=== PATIENT | male | born 1950 | race Caucasian/White ===

== ENCOUNTER → 2017-09-02 | Day surgery (SDC) | payer BC ==
[~2017-09-02] MED LIST: LIDOCAINE 1% PF 2 ML VIAL. ID; LIDOCAINE 2% PF Vial for OR 5 ML VIAL.; MIDAZOLAM HCL/PF 2 MG/2 ML VIAL. IV; PROPOFOL 20 ML IV; fentaNYL PF VIAL 100 MCG/2 ML VIAL IV
[2017-09-02] MEDS: IV RINGERS,LACTATED 1000ML 1,000 ML IV (09:58)
== END | disposition home or self-care (01) ==
LOC: SURG 09:27
DX: K21.0 Gastro-esophageal reflux disease with esophagitis (principal); E78.00 Pure hypercholesterolemia, unspecified; I10 Essential (primary) hypertension; M19.90 Unspecified osteoarthritis, unspecified site; E66.9 Obesity, unspecified; Z72.89 Other problems related to lifestyle; Z88.1 Allergy status to other antibiotic agents; Z88.6 Allergy status to analgesic agent; Z90.49 Acquired absence of other specified parts of digestive tract; Z98.890 Other specified postprocedural states; Z86.19 Personal history of other infectious and parasitic diseases; Z80.0 Family history of malignant neoplasm of digestive organs
CPT/HCPCS: 43239; 88305; J2001; J2704

== ENCOUNTER → 2017-09-14 | Outpatient (CLI) | payer BC, MEDICARE | END | disposition home or self-care (01) | LOC: US 07:26 | DX: K80.50 Calculus of bile duct without cholangitis or cholecystitis without obstruction (principal); N28.1 Cyst of kidney, acquired | CPT/HCPCS: 76705 ==

== ENCOUNTER → 2017-10-20 | Outpatient (CLI) | payer BC, MEDICARE ==
[2017-09-02 11:16] VITALS: BP 148/102
[~2017-10-20] MED LIST changes: +AMLO5TAB2 PO; +ASPI-482 PO; +DICL1TAB2 PO; +DRON400T PO; -LIDOCAINE 1% PF 2 ML VIAL. ID; -LIDOCAINE 2% PF Vial for OR 5 ML VIAL.; +LISI-338 PO; -MIDAZOLAM HCL/PF 2 MG/2 ML VIAL. IV; -PROPOFOL 20 ML IV; +TAMS0.4C2 PO; -fentaNYL PF VIAL 100 MCG/2 ML VIAL IV
--- NOTE | 2017-10-20 16:13 | KCIC ---
EXAM: Renal sonogram. HISTORY: Renal insufficiency. TECHNIQUE: Sonographic imaging of the kidneys and bladder was performed. COMPARISON: None. FINDINGS: The right kidney measures 12.5 cm [id number]. The left kidney measures 11.6 cm [id number]. There is no hydronephrosis. There are cysts within the right kidney measuring 7.5 cm within the upper pole and 3.6 cm within the lower pole. There is a 2.0 cm complex cyst with internal echoes within the mid zone of the left kidney. The bladder is empty. The proximal inferior vena cava and aorta are obscured due to bowel gas. The mid abdominal aorta appears ectatic, measuring 2.8 cm. IMPRESSION: 1. Bilateral renal cysts, the largest of which measures 7.5 cm on the right. The cyst on the left measures 2.0 cm and is slightly complex due to internal echoes. 2. Suspected abdominal aortic ectasia measuring 2.8 cm. Electronically signed by: Viry Vazquez MD (10/20/2017 4:09 PM) [facility]
== END | disposition home or self-care (01) ==
LOC: KCIC US 14:48
PROVIDERS: ATTEND Internal Medicine Nephrology
DX: I12.9 Hypertensive chronic kidney disease with stage 1 through stage 4 chronic kidney disease, or unspecified chronic kidney disease (principal); N18.3 Chronic kidney disease, stage 3 (moderate); N28.1 Cyst of kidney, acquired; E78.00 Pure hypercholesterolemia, unspecified; K21.0 Gastro-esophageal reflux disease with esophagitis; Z86.19 Personal history of other infectious and parasitic diseases; Z90.49 Acquired absence of other specified parts of digestive tract; Z88.1 Allergy status to other antibiotic agents; Z88.6 Allergy status to analgesic agent; Z80.0 Family history of malignant neoplasm of digestive organs
CPT/HCPCS: 76770

== ENCOUNTER → 2017-12-01 | Outpatient (CLI) | payer BC ==
[2017-09-02 11:16] VITALS: BP 148/102
[~2017-12-01] MED LIST changes: -AMLO5TAB2 PO; +AMLO5TAB7 PO; +IOHEXOL 240 MG/ML 50ML VIAL. PO ONE; +IOHEXOL 300 MG/ML 100ML VIAL. IV ONE
--- NOTE | 2017-12-01 16:26 | KCIC ---
CT of the abdomen with and without contrast 12/01/2017 INDICATION: Renal cysts, indeterminate COMPARISON STUDY: Renal ultrasound October 20, 2017 TECHNIQUE: Multidetector CT imaging of the abdomen and pelvis is obtained before and after the administration of IV contrast FINDINGS : Prior cholecystectomy noted. Liver is unremarkable. Adrenal glands are unremarkable. Spleen is unremarkable. Pancreas is unremarkable. Visualized bowel demonstrates no obstruction. Small nonspecific lymph nodes are noted in the epigastrium. These are not pathologically enlarged by size criterion. 2 larger right-sided renal cysts are noted, which are simple in appearance. Larger is more superior measuring 6.9 cm in diameter. Smaller is more inferior measuring 4.2 cm in diameter. The superior pole the right kidney is a small nonspecific lesion measuring 0.5 cm in diameter, too small to adequately characterize. Statistically this most likely represents a small cyst. On the left to parapelvic cysts are present measuring 2 cm each.In the inferior lateral left kidney is a small hypodense lesion measuring approximately 1.6 cm in maximal diameter. The borders of this lesion are somewhat poorly delineated. 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 There is no nephrolithiasis or obstructive uropathy identified. Aortic calcification is seen. No acute osseous changes are identified. Degenerative changes of the visualized thoracic spine are noted. IMPRESSION: 1. Multiple bilateral renal cysts as described above in detail 2. 1.6 cm somewhat poorly defined hypodense lesion in the inferior lateral left kidney. The attenuation characteristics suggest a fat-containing lesion, most commonly angiomyolipoma. Given the indistinct appearance however a six-month follow-up exam with contrast is recommended to ensure stability. CT DOSING PQRS STATEMENT: One or more of the following individualized dose reduction techniques were utilized for this examination: 1. Automated exposure control 2. Adjustment of the mA and/or kV according to patient size 3. Use of iterative reconstruction technique Electronically signed by: Nicolas Rahman MD (12/01/2017 4:22 PM) [facility]
== END | disposition home or self-care (01) ==
LOC: KCIC CT 12:56
PROVIDERS: ATTEND Urology
DX: N28.1 Cyst of kidney, acquired (principal); I70.0 Atherosclerosis of aorta; N28.89 Other specified disorders of kidney and ureter; I12.9 Hypertensive chronic kidney disease with stage 1 through stage 4 chronic kidney disease, or unspecified chronic kidney disease; N18.3 Chronic kidney disease, stage 3 (moderate); Z86.19 Personal history of other infectious and parasitic diseases; Z90.49 Acquired absence of other specified parts of digestive tract
CPT/HCPCS: 74170; 82565; Q9966; Q9967

== ENCOUNTER 2018-07-26 23:03 | Inpatient (IN) | payer BC, MEDICARE ==
[~2018-07-26] VITALS: Ht 177.8 cm; Wt 102.1 kg
[~2018-07-26 23:03] MED LIST changes: +AMLO1CAP8 PO; +AMLO5TAB10 PO; -AMLO5TAB7 PO; +FAMO20TA5 PO; -IOHEXOL 240 MG/ML 50ML VIAL. PO ONE; -IOHEXOL 300 MG/ML 100ML VIAL. IV ONE; +LOSA-73 PO
[2018-07-26] MEDS ORDERED: PANTOPRAZOLE IV PUSH 40 MG VIAL. IVP ONE (23:30)
[2018-07-26] MEDS ORDERED: IV NORMAL SALINE 500ML BAG 500 ML IV ONE (23:30)
[2018-07-26 23:48] LABS: BASO # 0.1 x10^3/uL (0.0-0.2); BASO % 1 % (0-3); EOS # 0.1 x10^3/uL (0.0-0.7); EOS % 1 % (0-3); HEMATOCRIT 38.5 % (39.0-53.0); HEMOGLOBIN 12.6 g/dL (13.0-17.5); LYMPH # 1.3 x10^3/uL (1.0-4.8); LYMPH % 9 % (24-48); MEAN CORPUSCULAR HEMOGLOBIN 29 pg (25-35); MEAN CORPUSCULAR HGB CONC 33 g/dL (31-37); MEAN CORPUSCULAR VOLUME 88 fL (79-100); MONO # 1.4 x10^3/uL (0.0-1.1); MONO % 9 % (0-9); NEUT # 13.1 x10^3uL (1.8-7.7); NEUT % 82 % (31-73); PLATELET COUNT 386 x10^3/uL (140-400); RED BLOOD COUNT 4.37 x10^6/uL (4.30-5.70); RED CELL DISTRIBUTION WIDTH 14.7 % (11.5-14.5); WHITE BLOOD COUNT 15.9 x10^3/uL (4.0-11.0)
[2018-07-27] VITALS (12 sets, daily range): BP systolic 135–193; BP diastolic 93–109
[2018-07-27] LABS: PROTHROMBIN TIME PATIENT 14.2 SEC (11.7-14.0)
--- NOTE | 2018-07-27 00:22 | RAD ---
PQRS Compliance statement: One or more of the following individualized dose reduction techniques were utilized for this examination: 1. Automated exposure control. 2. Adjustment of the mA and/or kV according to patient size. 3. Use of iterative reconstruction technique. Indication:Lower GI bleed TECHNIQUE: CT abdomen and pelvis without IV contrast with multiplanar reformats. COMPARISON: None FINDINGS: Limited evaluation of solid abdominal and pelvic organs due to lack of IV contrast. Heart is normal in size. No pericardial or pleural effusion. Clear lung bases. Noncontrast appearance of the liver, spleen, pancreas, adrenals within normal limits. Status post cholecystectomy. Simple cyst in the right kidney measuring 6.7 x 5.1 cm. No nephrolithiasis or hydronephrosis. Laceration of abdominal soft tissues slightly limited due to streak artifact from retained oral contrast in the colon. No free pelvic fluid or ascites. Small bilateral fat-containing inguinal hernia. The prostate and seminal vesicles show no large mass. No bowel obstruction. Urinary bladder demonstrate no radiopaque stones. No pneumoperitoneum. Tortuous abdominal aorta with mild ectasia measuring 3 cm. Sigmoid diverticulosis. Mild levoscoliosis of the lumbar spine. No suspicious bony lesion. Multilevel degenerative disc disease in the lumbar spine. IMPRESSION: Limited evaluation of solid abdominal and pelvic organs due to lack of IV contrast. 1. No bowel obstruction. Sigmoid diverticulosis without diverticulitis. 2. No nephrolithiasis or hydronephrosis. 3. Mild ectasia of the infrarenal abdominal aorta. Electronically signed by: Go Whiting DO (07/27/2018 12:20 AM) [facility]
[2018-07-27 00:34] LABS: CALCIUM 8.4 mg/dL (8.5-10.1); CREATININE 1.9 mg/dL (0.7-1.3); GFR 35.5; POTASSIUM 3.9 mmol/L (3.5-5.1)
[2018-07-27 00:39] LABS: ALBUMIN 2.6 g/dL (3.4-5.0); ALBUMIN/GLOBULIN RATIO 0.8 (1.0-1.7); TOTAL BILIRUBIN 0.3 mg/dL (0.2-1.0); TOTAL PROTEIN 5.8 g/dL (6.4-8.2)
--- NOTE | 2018-07-27 00:50 | PHYS DOC ---
Past Medical History Past Medical History: COPD, CVA, Diverticulosis, GI Bleed Past Surgical History: Cholecystectomy Additional Past Surgical Histo: Carpal tunnel R side, hemorroidectomy Alcohol Use: Occasionally Drug Use: Marijuana Adult General Chief Complaint Chief Complaint: GI PROBLEM HPI HPI Patient is a 68 year old male patient resident of [facility] on Heparin drip because of left lower extremity infection brought in by EMS because of GI bleeding. Patient had 1 episode of rectal bleeding tonight without abdominal pain, nausea and vomiting, urinary symptom, easy bruising. She states she had history of diverticulitis and previous GI bleed. Review of Systems Review of Systems Constitutional: Denies fever or chills [] Eyes: Denies change in visual acuity, redness, or eye pain [] HENT: Denies nasal congestion or sore throat [] Respiratory: Denies cough or shortness of breath [] Cardiovascular: No additional information not addressed in HPI [] GI: Denies abdominal pain, nausea, vomiting, diarrhea , reports bloody stool[] : Denies dysuria or hematuria [] Musculoskeletal: Denies back pain or joint pain [] Integument: Denies rash or skin lesions [] Neurologic: Denies headache, focal weakness or sensory changes [] Endocrine: Denies polyuria or polydipsia [] All other systems were reviewed and found to be within normal limits, except as documented in this note. Current Medications Current Medications Current Medications Medications (Trade) Dose Ordered Sig/Von Start Time Stop Time Status Last Admin Dose Admin Pantoprazole Sodium (PROTONIX VIAL for IV PUSH) 40 mg 1X ONCE 07/26/18 23:30 07/26/18 23:32 DC 07/27/18 00:06 40 MG Sodium Chloride 500 ml @ 500 mls/hr 1X ONCE 07/26/18 23:30 07/27/18 00:29 DC 07/26/18 23:30 500 MLS/HR Allergies Allergies Physical Exam Physical Exam Constitutional: Well developed, well nourished, mild distress, non-toxic appearance. [] HENT: Normocephalic, atraumatic, oropharynx dry. Eyes: PERRLA, EOMI, conjunctiva normal, no discharge. [] Neck: Normal range of motion, no tenderness, supple, no stridor. [] Cardiovascular:Heart rate regular rhythm, no murmur [] Lungs & Thorax: Bilateral breath sounds clear to auscultation [] Abdomen: Bowel sounds normal, soft, no tenderness, no masses, no pulsatile masses. [] Skin: Warm, dry, no erythema, no rash. [] Back: No tenderness, no CVA tenderness. [] Extremities: No tenderness, no cyanosis, no clubbing, left lower extremity with dressing Neurologic: Alert and oriented X 3, normal motor function, normal sensory fu nction, no focal deficits noted. [] Current Patient Data Vital Signs Vital Signs Date Time Temp Pulse Resp B/P (MAP) Pulse Ox O2 Delivery O2 Flow Rate FiO2 07/27/18 00:02 61 25 137/89 (105) 93 Nasal Cannula 3.0 07/26/18 23:10 97.7 97.7 Lab Values Laboratory Tests Test 07/26/18 23:37 White Blood Count 15.9 x10^3/uL (4.0-11.0) H Red Blood Count 4.37 x10^6/uL (4.30-5.70) Hemoglobin 12.6 g/dL (13.0-17.5) L Hematocrit 38.5 % (39.0-53.0) L Mean Corpuscular Volume 88 fL (79-100) Mean Corpuscular Hemoglobin 29 pg (25-35) Mean Corpuscular Hemoglobin Concent 33 g/dL (31-37) Red Cell Distribution Width 14.7 % (11.5-14.5) H Platelet Count 386 x10^3/uL (140-400) Neutrophils (%) (Auto) 82 % (31-73) H Lymphocytes (%) (Auto) 9 % (24-48) L Monocytes (%) (Auto) 9 % (0-9) Eosinophils (%) (Auto) 1 % (0-3) Basophils (%) (Auto) 1 % (0-3) Neutrophils # (Auto) 13.1 x10^3uL (1.8-7.7) H Lymphocytes # (Auto) 1.3 x10^3/uL (1.0-4.8) Monocytes # (Auto) 1.4 x10^3/uL (0.0-1.1) H Eosinophils # (Auto) 0.1 x10^3/uL (0.0-0.7) Basophils # (Auto) 0.1 x10^3/uL (0.0-0.2) Prothrombin Time 14.2 SEC (11.7-14.0) H Prothrombin Time INR 1.1 (0.8-1.1) PTT 28 SEC (24-38) Lactic Acid Level 1.5 mmol/L (0.4-2.0) Laboratory Tests 07/26/18 23:37 EKG EKG [] Radiology/Procedures Radiology/Procedures [facility] [address] [place] [address] IMAGING REPORT Signed PATIENT: SHAQUILLE DELUCA ACCOUNT: [id number] : 1950 LOCATION: ER AGE: 68 SEX: M EXAM STATUS: REG ER ORD. PHYSICIAN: JENNIFER LOUISE MD REASON: lower GI bleeding PROCEDURE: CT ABDOMEN PELVIS WO CONTRAST PQRS Compliance statement: One or more of the following individualized dose reduction techniques were utilized for this examination: 1. Automated exposure control. 2. Adjustment of the mA and/or kV according to patient size. 3. Use of iterative reconstruction technique. Indication:Lower GI bleed TECHNIQUE: CT abdomen and pelvis without IV contrast with multiplanar reformats. COMPARISON: None FINDINGS: Limited evaluation of solid abdominal and pelvic organs due to lack of IV contrast. Heart is normal in size. No pericardial or pleural effusion. Clear lung bases. Noncontrast appearance of the liver, spleen, pancreas, adrenals within normal limits. Status post cholecystectomy. Simple cyst in the right kidney measuring 6.7 x 5.1 cm. No nephrolithiasis or hydronephrosis. Laceration of abdominal soft tissues slightly limited due to streak artifact from retained oral contrast in the colon. No free pelvic fluid or ascites. Small bilateral fat-containing inguinal hernia. The prostate and seminal vesicles show no large mass. No bowel obstruction. Urinary bladder demonstrate no radiopaque stones. No pneumoperitoneum. Tortuous abdominal aorta with mild ectasia measuring 3 cm. Sigmoid diverticulosis. Mild levoscoliosis of the lumbar spine. No suspicious bony lesion. Multilevel degenerative disc disease in the lumbar spine. IMPRESSION: Limited evaluation of solid abdominal and pelvic organs due to lack of IV contrast. 1. No bowel obstruction. Sigmoid diverticulosis without diverticulitis. 2. No nephrolithiasis or hydronephrosis. 3. Mild ectasia of the infrarenal abdominal aorta. Electronically signed by: Go Whiting DO (07/27/2018 12:20 AM) [facility] DICTATED and SIGNED BY: GO WHITING DO DATE: 07/27/18 0020 Course & Med Decision Making Course & Med Decision Making Pertinent Labs and Imaging studies reviewed. (See chart for details) Evaluation of patient in ER showed 68-year-old male patient on heparin drip and one episode of rectal bleeding. Patient has a stable blood of 12.6 that was drop ped from 15. Patient also had increasing of BUN/creatinine. Patient had another episode of large amount of bloody stool while he was in ER without drop of blood pressure. IV fluid and Protonix bolus and drip was given and patient was admitted to ICU with instruction of repeat CBC every 4 hours and consulting GI. [place] Disclaimer Dragon Disclaimer This electronic medical record was generated, in whole or in part, using a voice recognition dictation system. Departure Departure Impression: Primary Impression: GI bleed Additional Impressions: Acute on chronic renal failure Anticoagulant-induced bleeding Anemia Hypoalbuminemia Disposition: ADMITTED INPATIENT (at 0007) Admitting Physician: WILL (Dr. Duncan accepted admission) Condition: GUARDED Referrals: MAKENZIE ALEXANDER (PCP) Problem Qualifiers Primary Impression: GI bleed GI bleed type/associated pathology: unspecified gastrointestinal hemorrhage type Qualified Codes: K92.2 - Gastrointestinal hemorrhage, unspecified Additional Impressions: Acute on chronic renal failure Acute renal failure type: unspecified Chronic kidney disease stage: unspec ified stage Qualified Codes: N17.9 - Acute kidney failure, unspecified; N18.9 - Chronic kidney disease, unspecified Anemia Anemia type: unspecified type Qualified Codes: D64.9 - Anemia, unspecified JENNIFER LOUISE MD July 27, 2018 00:50
[2018-07-27] MEDS: IV NORMAL SALINE 1000ML BAG 1,000 ML IV SCH ×2 (01:00→17:00)
[2018-07-27] MEDS ORDERED: IV NORMAL SALINE 1000ML BAG 1,000 ML IV ONE (02:00)
[2018-07-27] MEDS: PANTOPRAZOLE SODIUM IV DRIP 80 MG in IV NORMAL SALINE 100ML 100 ML IV SCH ×2 (02:54→12:13)
[2018-07-27 04:31] LABS: HEMATOCRIT 35.7 % (39.0-53.0); HEMOGLOBIN 11.7 g/dL (13.0-17.5); RED BLOOD COUNT 4.08 x10^6/uL (4.30-5.70); RED CELL DISTRIBUTION WIDTH 14.6 % (11.5-14.5); WHITE BLOOD COUNT 15.8 x10^3/uL (4.0-11.0)
[2018-07-27] MEDS ORDERED: ATOR40TA59 PO (05:18)
[2018-07-27] MEDS ORDERED: CLINIMIX E IV (05:18)
[2018-07-27] MEDS ORDERED: IPRA3AMP29 NEB (05:18)
[2018-07-27] MEDS ORDERED: DILT120C85 PO (05:18)
[2018-07-27] MEDS ORDERED: DEXTROSE IV (05:18)
[2018-07-27] MEDS ORDERED: NITR1OIN TD (05:18)
[2018-07-27] MEDS ORDERED: HYDRALAZINE IV (05:29)
[2018-07-27] MEDS ORDERED: ASPI325T8 PO (05:29)
[2018-07-27] MEDS ORDERED: LORAZEPAM IV (05:36)
[2018-07-27] MEDS ORDERED: FENTANYL IV (05:36)
[2018-07-27] MEDS ORDERED: HALDOL IM (05:36)
--- NOTE | 2018-07-27 08:03 | PDOC1 ---
History and Physical Date of Admission Date of Admission DATE: 07/27/18 TIME: 08:02 Identification/Chief Complaint Chief Complaint LGIB Source Source: Caregiver, Patient History of Present Illness History of Present Illness Mr. Gutiérrez is a 68 year old M w/ PMHx HTN, HLD, Hep C, admitted for stroke symptoms to [facility] 07/18/18 and discharged to [facility] on 07/25/18. He last used meth prior to admit and smokes marijuana as well. He was seen by cardiology, started on heparin GTT, cardizem GTT for management for his afib, seen by neurology as well, MRI confirmed area of acute ischemia/infarction is seen involving portions of the right temporal, right occipital and right frontoparietal lobes. This is a right MCA distribution. There is mild surrounding edema without evidence of significant mass effect. He was continuing to have difficulty swallowing, GI was consulted for PEG co nsideration, was on PPN for nearly 1 week for nutrition. Worked with PT/OT/ASSOCIATE PATHOLOGIST daily, was initially confused and agitated, however this improved over the course of 7 days, not requiring haldol and ativan. Has been tolerating ice chips per his well. Up and alert this morning, he is frustrated with his stroke symptoms. Videoswallow showed penetration with honey-thickened liquids. Discussed with he and his bedside. His cough is still very weak. Given nebs with improvement. IS and acapella flutter valve both bedside. Was discharged to [facility] on Eliquis. Back to ER last night after passing bright red blood ("a lot") w/ stool ye [facility] at [facility]. Recurred in ER but not in ICU since admission. He denies n/v, abd pain, diarrhea, constipation, and dizziness. Says this occurred in the past "with straining" - indicated maybe related to hemorrhoids than. Has been NPO on PPI drip - he's thirsty. Says was eating and drinking okay prior to admission. EGD 08/2017: LA Grade A esophagitis (biopsy c/w reflux) and proximal esophageal biopsies c/w gastric inlet patch, normal stomach, normal duodenum. Colonoscopy 11/2012: sigmoid polyp (no significant findings on biopsy), diverticulosis, hemorrhoids. Chart lists h/o Hep C. Last admission, Hgb 14-15 range. This time 12.6 to 11.7. Last admission, BUN in 30s. This time 71 w/ Cr 1.9. Diverticulosis on CT. Admitted to ICU with GI following Past Medical History Cardiovascular: AFIB, HTN, Hyperlipidemia Pulmonary: No pertinent hx CENTRAL NERVOUS SYSTEM: Other GI: Hemorrhoids Heme/Onc: No pertinent hx Hepatobiliary: Cholelithiasis Psych: No pertinent hx Musculoskeletal: Osteoarthritis Rheumatologic: No pertinent hx Infectious disease: No pertinent hx Renal/: Chronic renal insuff Endocrine: No pertinent hx Past Surgical History Past Surgical History: Cholecystectomy, Other Family History Family History: Heart Disease Social History Smoke: No ALCOHOL: occassional Drugs: Marijuana, Crystal meth Current Problem List Problem List Problems Medical Problems: (1) Acute on chronic renal failure Status: Acute (2) Anemia Status: Acute (3) Anticoagulant-induced bleeding Status: Acute (4) Hypoalbuminemia Status: Acute Current Medications Current Medications Current Medications Pantoprazole Sodium (PROTONIX VIAL for IV PUSH) 40 mg 1X ONCE IVP Last administered on 07/27/18at 00:06; Start 07/26/18 at 23:30; Stop 07/26/18 at 23:32; Status DC Sodium Chloride 500 ml @ 500 mls/hr 1X ONCE IV Last administered on 07/26/18at 23:30; Start 07/26/18 at 23:30; Stop 07/27/18 at 00:29; Status DC Sodium Chloride 1,000 ml @ 125 mls/hr Q8H IV ; Start 07/27/18 at 01:00; Stop 07/28/18 at 00:59 Pantoprazole Sodium 80 mg/ Sodium Chloride 100 ml @ 10 mls/hr Q10H IV Last administered on 07/27/18at 02:54; Start 07/27/18 at 02:00 Sodium Chloride 1,000 ml @ 200 mls/hr 1X ONCE IV Last administered on 07/27/18at 02:54; Start 07/27/18 at 02:00; Stop 07/27/18 at 06:59; Status DC Active Scripts Active Reported [Lorazepam] 1 Mg IV Q4HRS PRN [Fentanyl] 0.25 Mcg IV Q3HRS PRN [Haldol] 2 Mg IM Q4HRS PRN [Hydralazine] 10 Mg IV Q4HRS PRN Aspirin 325 Mg Tablet 1 Tab PO DAILY Diltiazem 24HR Cd (Diltiazem Hcl) 120 Mg Cap.er.24h 2 Cap PO DAILY [clinimix e/dextrose] 50 Ml IV Nitro-Bid (Nitroglycerin) 1 Gm Oint...g. 0.5 Inch TD Q6HRS Duoneb 0.5-3(2.5) Mg/3 Ml (Albuterol/Ipratropium) 3 Ml Ampul.neb 3 Ml NEB QID Atorvastatin Calcium 40 Mg Tablet 1 Tab PO QHS Allergies Allergies: Coded Allergies: Tetracyclines (Verified Allergy, Intermediate, 07/27/18) hydromorphone (Verified Allergy, Intermediate, 07/27/18) ROS General: YES: Fatigue, Malaise; No: Chills, Night Sweats, Appetite, Other PSYCHOLOGICAL ROS: YES: Anxiety, Disorientation; No: Behavioral Disorder, Concentration difficultie, Decreased libido, Depression, Hallucinations, Hostility, Irritablity, Memory difficulties, Mood Swings, Obsessive thoughts, Physical abuse, Sexual abuse, Sleep disturbances, Suicidal ideation, Other Eyes: No Blurry vision, No Decreased vision, No Double vision, No Dry eyes, No Excessive tearing, No Eye Pain, No Itchy Eyes, No Loss of vision, No Photophobia, No Scotomata, No Uses contacts, No Uses glasses, No Other HEENT: No: Heacaches, Visual Changes, Hearing change, Nasal congestion, Nasal discharge, Oral lesions, Sinus pain, Sore Throat, Epistaxis, Sneezing, Snoring, Tinnitus, Vertigo, Vocal changes, Other ALLERGY AND IMMUNOLOGY: No: Hives, Insect Bite Sensitivity, Itchy/Watery Eyes, Nasal Congestion, Post Nasal Drip, Seasonal Allergies, Other Hematological and Lymphatic: YES: Bleeding Problems; No: Blood Clots, Blood Transfusions, Brusing, Night Sweats, Pallor, Swollen Lymph Nodes, Other ENDOCRINE: No: Breast Changes, Galactorrhea, Hair Pattern Changes, Hot Flashes, Malaise/lethargy, Mood Swings, Palpitations, Polydipsia/polyuria, Skin Changes, Temperature Intolerance, Unexpected Weight Changes, Other Breast: No New/Changing Breast Lumps, No Nipple changes, No Nipple discharge, No Other Respiratory: No: Cough, Hemoptysis, Orthopnea, Pleuritic Pain, Shortness of breath, SOB with excertion, Sputum Changes, Stridor, Tachypnea, Wheezing, Other Cardiovascular: No Chest Pain, No Palpitations, No Orthopnea, No Paroxysmal Noc. Dyspnea, No Edema, No Lt Headedness, No Other Gastrointestinal: No Nausea, No Vomiting, No Abdominal Pain, No Diarrhea, No Constipation, No Melena, No Hematochezia, No Other Genitourinary: No Dysuria, No Frequency, No Incontinence, No Hematuria, No Retention, No Discharge, No Urgency, No Pain, No Flank Pain, No Other, No , No , No , No , No , No , No Musculoskeletal: No Gait Disturbance, No Joint Pain, No Joint Stiffness, No Joint Swelling, No Muscle Pain, No Muscular Weakness, No Pain In:, No Swelling In:, No Other Neurological: No Behavorial Changes, No Bowel/Bladder ControlChng, No Confusion, No Dizziness, No Gait Disturbance, No Headaches, No Impaired Coord/balance, No Memory Loss, No Numbness/Tingling, No Seizures, No Speech P roblems, No Tremors, No Visual Changes, No Weakness, No Other Skin: No Dry Skin, No Eczema, No Hair Changes, No Lumps, No Mole Changes, No Mottling, No Nail Changes, No Pruritus, No Rash, No Skin Lesion Changes, No Other, No Acne Physical Exam General: Alert, Cooperative, No acute distress HEENT: Atraumatic, PERRLA, EOMI, Mucous membr. moist/pink Lungs: Clear to auscultation, Normal air movement Heart: S1S2, RRR, irregularly irregular Abdomen: Normal bowel sounds, Soft, No tenderness, No hepatosplenomegaly, No masses Rectal Exam: not examined Extremities: No clubbing, No cyanosis, No edema, Normal pulses, No tenderness/swelling Skin: No rashes, No breakdown, No significant lesion Neuro: Cranial nerves 3-12 NL, Other (left side dense hemiparesis) Psych/Mental Status: Mood NL Vitals Vitals Vital Signs Date Time Temp Pulse Resp B/P (MAP) Pulse Ox O2 Delivery O2 Flow Rate FiO2 07/27/18 06:00 82 24 142/94 (110) 98 Nasal Cannula 2.0 07/27/18 02:45 98.0 98.0 Labs Labs Laboratory Tests Test 07/26/18 23:37 07/27/18 00:10 07/27/18 04:00 White Blood Count 15.9 x10^3/uL (4.0-11.0) 15.8 x10^3/uL (4.0-11.0) Red Blood Count 4.37 x10^6/uL (4.30-5.70) 4.08 x10^6/uL (4.30-5.70) Hemoglobin 12.6 g/dL (13.0-17.5) 11.7 g/dL (13.0-17.5) Hematocrit 38.5 % (39.0-53.0) 35.7 % (39.0-53.0) Mean Corpuscular Volume 88 fL (79-100) 88 fL (79-100) Mean Corpuscular Hemoglobin 29 pg (25-35) 29 pg (25-35) Mean Corpuscular Hemoglobin Concent 33 g/dL (31-37) 33 g/dL (31-37) Red Cell Distribution Width 14.7 % (11.5-14.5) 14.6 % (11.5-14.5) Platelet Count 386 x10^3/uL (140-400) 371 x10^3/uL (140-400) Neutrophils (%) (Auto) 82 % (31-73) Lymphocytes (%) (Auto) 9 % (24-48) Monocytes (%) (Auto) 9 % (0-9) Eosinophils (%) (Auto) 1 % (0-3) Basophils (%) (Auto) 1 % (0-3) Neutrophils # (Auto) 13.1 x10^3uL (1.8-7.7) Lymphocytes # (Auto) 1.3 x10^3/uL (1.0-4.8) Monocytes # (Auto) 1.4 x10^3/uL (0.0-1.1) Eosinophils # (Auto) 0.1 x10^3/uL (0.0-0.7) Basophils # (Auto) 0.1 x10^3/uL (0.0-0.2) Prothrombin Time 14.2 SEC (11.7-14.0) Prothromb Time International Ratio 1.1 (0.8-1.1) Activated Partial Thromboplast Time 28 SEC (24-38) Lactic Acid Level 1.5 mmol/L (0.4-2.0) Sodium Level 147 mmol/L (136-145) Potassium Level 3.9 mmol/L (3.5-5.1) Chloride Level 113 mmol/L (98-107) Carbon Dioxide Level 19 mmol/L (21-32) Anion Gap 15 (6-14) Blood Urea Nitrogen 71 mg/dL (8-26) Creatinine 1.9 mg/dL (0.7-1.3) Estimated GFR (Cockcroft-Gault) 35.5 BUN/Creatinine Ratio 37 (6-20) Glucose Level 130 mg/dL (70-99) Calcium Level 8.4 mg/dL (8.5-10.1) Total Bilirubin 0.3 mg/dL (0.2-1.0) Aspartate Amino Transf (AST/SGOT) 19 U/L (15-37) Alanine Aminotransferase (ALT/SGPT) 38 U/L (16-63) Alkaline Phosphatase 87 U/L (46-116) Troponin I Quantitative 0.021 ng/mL (0.000-0.055) ZP-Lxm-P-Type Natriuretic Peptide 1609 pg/mL (0-124) Total Protein 5.8 g/dL (6.4-8.2) Albumin 2.6 g/dL (3.4-5.0) Albumin/Globulin Ratio 0.8 (1.0-1.7) Lipase 98 U/L (73-393) Laboratory Tests Test 07/26/18 23:37 07/27/18 00:10 07/27/18 04:00 White Blood Count 15.9 x10^3/uL (4.0-11.0) 15.8 x10^3/uL (4.0-11.0) Red Blood Count 4.37 x10^6/uL (4.30-5.70) 4.08 x10^6/uL (4.30-5.70) Hemoglobin 12.6 g/dL (13.0-17.5) 11.7 g/dL (13.0-17.5) Hematocrit 38.5 % (39.0-53.0) 35.7 % (39.0-53.0) Mean Corpuscular Volume 88 fL (79-100) 88 fL (79-100) Mean Corpuscular Hemoglobin 29 pg (25-35) 29 pg (25-35) Mean Corpuscular Hemoglobin Concent 33 g/dL (31-37) 33 g/dL (31-37) Red Cell Distribution Width 14.7 % (11.5-14.5) 14.6 % (11.5-14.5) Platelet Count 386 x10^3/uL (140-400) 371 x10^3/uL (140-400) Neutrophils (%) (Auto) 82 % (31-73) Lymphocytes (%) (Auto) 9 % (24-48) Monocytes (%) (Auto) 9 % (0-9) Eosinophils (%) (Auto) 1 % (0-3) Basophils (%) (Auto) 1 % (0-3) Neutrophils # (Auto) 13.1 x10^3uL (1.8-7.7) Lymphocytes # (Auto) 1.3 x10^3/uL (1.0-4.8) Monocytes # (Auto) 1.4 x10^3/uL (0.0-1.1) Eosinophils # (Auto) 0.1 x10^3/uL (0.0-0.7) Basophils # (Auto) 0.1 x10^3/uL (0.0-0.2) Prothrombin Time 14.2 SEC (11.7-14.0) Prothromb Time International Ratio 1.1 (0.8-1.1) Activated Partial Thromboplast Time 28 SEC (24-38) Lactic Acid Level 1.5 mmol/L (0.4-2.0) Sodium Level 147 mmol/L (136-145) Potassium Level 3.9 mmol/L (3.5-5.1) Chloride Level 113 mmol/L (98-107) Carbon Dioxide Level 19 mmol/L (21-32) Anion Gap 15 (6-14) Blood Urea Nitrogen 71 mg/dL (8-26) Creatinine 1.9 mg/dL (0.7-1.3) Estimated GFR (Cockcroft-Gault) 35.5 BUN/Creatinine Ratio 37 (6-20) Glucose Level 130 mg/dL (70-99) Calcium Level 8.4 mg/dL (8.5-10.1) Total Bilirubin 0.3 mg/dL (0.2-1.0) Aspartate Amino Transf (AST/SGOT) 19 U/L (15-37) Alanine Aminotransferase (ALT/SGPT) 38 U/L (16-63) Alkaline Phosphatase 87 U/L (46-116) Troponin I Quantitative 0.021 ng/mL (0.000-0.055) RP-Opx-M-Type Natriuretic Peptide 1609 pg/mL (0-124) Total Protein 5.8 g/dL (6.4-8.2) Albumin 2.6 g/dL (3.4-5.0) Albumin/Globulin Ratio 0.8 (1.0-1.7) Lipase 98 U/L (73-393) Images Images Limited evaluation of solid abdominal and pelvic organs due to lack of IV contrast. 1. No bowel obstruction. Sigmoid diverticulosis without diverticulitis. 2. No nephrolithiasis or hydronephrosis. 3. Mild ectasia of the infrarenal abdominal aorta. VTE Prophylaxis Ordered VTE Prophylaxis Devices: Yes VTE Pharmacological Prophylaxi: Contraindicated Assessment/Plan Assessment/Plan A/P: Acute blood loss anemia - with his BUN elevation there is concern he may have UGIB, and with hep c history possibly has cirrhosis, will get Q12 H&H and consult GI Recent Acute CVA - Area of acute ischemia/infarction is seen involving portions of the right temporal, right occipital and right frontoparietal lobes as discussed above. This is a right MCA distribution. There is mild surrounding edema without evidence of significant mass effect. was on eliquis. Continue Lipitor 40 mg HS. Hx of PAFIB - needs anticoagulation, but with GI bleeding is on hold. Cardiology to see as well HTN: labile. monitor on meds HLP - cont statin CKD stage 4 - monitor Agitation/Aggressive Behavior - on antipsychotics Weak cough - start nebs today, may need glycopyrrolate Acute/subacute right frontal, parietal, temporal and occipital lobe infarcts. 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 Amphetamine positive. Cannabinoids positive. Obesity. Hep C history - will check viral load FEN - NPO PPX - PPI gtt FULL CODE ICU admission for GI bleed, I am concerned this may be 2/2 UGIB. - PT/OT/ASSOCIATE PATHOLOGIST 37 min pt exam, chart review,> 50% of time spent with exam, chart review, pt care coordination MICAELA MERCHANT MD July 27, 2018 08:03
[2018-07-27 08:50] LABS: HEMATOCRIT 33.6 % (39.0-53.0); HEMOGLOBIN 11.3 g/dL (13.0-17.5); RED BLOOD COUNT 3.81 x10^6/uL (4.30-5.70); RED CELL DISTRIBUTION WIDTH 14.9 % (11.5-14.5); WHITE BLOOD COUNT 15.5 x10^3/uL (4.0-11.0)
--- NOTE | 2018-07-27 09:24 | PDOC2 ---
GI CONSULT Reason For Consult: GI bleeding HPI: HPI: 68 y/o male w/ recent CVA (got Heparin) who we saw for some dysphagia issues - had videoswallow and tolerated dysphagia diet last week, was discharged to [facility] on Eliquis I believe (though RN says not included on med list - ?also ASA). Back to ER last night after passing bright red blood ("a lot") w/ stool yesterday. Recurred in ER but not in ICU since admission. He denies n/v, abd pain, diarrhea, constipation, and dizziness. Says this occurred in the past "with straining" - indicated maybe related to hemorrhoids than. Has been NPO on PPI drip - he's thirsty. Says was eating and drinking okay prior to admission. EGD 08/2017: LA Grade A esophagitis (biopsy c/w reflux) and proximal esophageal biopsies c/w gastric inlet patch, normal stomach, normal duodenum. Colonoscopy 11/2012: sigmoid polyp (no significant findings on biopsy), diverticulosis, hemorrhoids. Was referred to ENT at one point for oral ulcers. Abd US 08/2017 for epigastric pain: CBD 7mm, distal common bile duct not well visualized secondary to bowel gas, cholecystectomy. MRI recommended - he did not follow-up. Chart lists h/o Hep C. Last admission, Hgb 14-15 range. This time 12.6 to 11.7. Last admission, BUN in 30s. This time 71 w/ Cr 1.9. Diverticulosis on CT. PMH: PMH: CVA, A Fib, HTN, HLD, CKD, GERD, diverticulosis, hemorrhoids cholecystectomy, hemorrhoidectomy FH: Family History: No pertinent hx Social History: ALCOHOL: occassional Drugs: Marijuana, Crystal meth ROS: GEN: Denies fevers, chills, sweats HEENT: Denies blurred vision, sore throat CV: Denies chest pain RESP: Denies shortness of air, cough GI: Per HPI : Denies hematuria, dysuria ENDO: Denies weight changes NEURO: Denies confusion, dizziness MSK: +weakness SKIN: Denies jaundice, pruritus Vitals: Vitals: Vital Signs Date Time Temp Pulse Resp B/P (MAP) Pulse Ox O2 Delivery O2 Flow Rate FiO2 07/27/18 06:00 82 24 142/94 (110) 98 Nasal Cannula 2.0 07/27/18 02:45 98.0 98.0 Labs: Labs: Laboratory Tests Test 07/26/18 23:37 07/27/18 00:10 07/27/18 04:00 07/27/18 08:10 White Blood Count 15.9 x10^3/uL (4.0-11.0) 15.8 x10^3/uL (4.0-11.0) 15.5 x10^3/uL (4.0-11.0) Red Blood Count 4.37 x10^6/uL (4.30-5.70) 4.08 x10^6/uL (4.30-5.70) 3.81 x10^6/uL (4.30-5.70) Hemoglobin 12.6 g/dL (13.0-17.5) 11.7 g/dL (13.0-17.5) 11.3 g/dL (13.0-17.5) Hematocrit 38.5 % (39.0-53.0) 35.7 % (39.0-53.0) 33.6 % (39.0-53.0) Mean Corpuscular Volume 88 fL (79-100) 88 fL (79-100) 88 fL (79-100) Mean Corpuscular Hemoglobin 29 pg (25-35) 29 pg (25-35) 30 pg (25-35) Mean Corpuscular Hemoglobin Concent 33 g/dL (31-37) 33 g/dL (31-37) 34 g/dL (31-37) Red Cell Distribution Width 14.7 % (11.5-14.5) 14.6 % (11.5-14.5) 14.9 % (11.5-14.5) Platelet Count 386 x10^3/uL (140-400) 371 x10^3/uL (140-400) 362 x10^3/uL (140-400) Neutrophils (%) (Auto) 82 % (31-73) Lymphocytes (%) (Auto) 9 % (24-48) Monocytes (%) (Auto) 9 % (0-9) Eosinophils (%) (Auto) 1 % (0-3) Basophils (%) (Auto) 1 % (0-3) Neutrophils # (Auto) 13.1 x10^3uL (1.8-7.7) Lymphocytes # (Auto) 1.3 x10^3/uL (1.0-4.8) Monocytes # (Auto) 1.4 x10^3/uL (0.0-1.1) Eosinophils # (Auto) 0.1 x10^3/uL (0.0-0.7) Basophils # (Auto) 0.1 x10^3/uL (0.0-0.2) Prothrombin Time 14.2 SEC (11.7-14.0) Prothromb Time International Ratio 1.1 (0.8-1.1) Activated Partial Thromboplast Time 28 SEC (24-38) Lactic Acid Level 1.5 mmol/L (0.4-2.0) Sodium Level 147 mmol/L (136-145) Potassium Level 3.9 mmol/L (3.5-5.1) Chloride Level 113 mmol/L (98-107) Carbon Dioxide Level 19 mmol/L (21-32) Anion Gap 15 (6-14) Blood Urea Nitrogen 71 mg/dL (8-26) Creatinine 1.9 mg/dL (0.7-1.3) Estimated GFR (Cockcroft-Gault) 35.5 BUN/Creatinine Ratio 37 (6-20) Glucose Level 130 mg/dL (70-99) Calcium Level 8.4 mg/dL (8.5-10.1) Total Bilirubin 0.3 mg/dL (0.2-1.0) Aspartate Amino Transf (AST/SGOT) 19 U/L (15-37) Alanine Aminotransferase (ALT/SGPT) 38 U/L (16-63) Alkaline Phosphatase 87 U/L (46-116) Troponin I Quantitative 0.021 ng/mL (0.000-0.055) OP-Pgd-A-Type Natriuretic Peptide 1609 pg/mL (0-124) Total Protein 5.8 g/dL (6.4-8.2) Albumin 2.6 g/dL (3.4-5.0) Albumin/Globulin Ratio 0.8 (1.0-1.7) Lipase 98 U/L (73-393) Allergies: Coded Allergies: Tetracyclines (Verified Allergy, Intermediate, 07/27/18) hydromorphone (Verified Allergy, Intermediate, 07/27/18) Medications: Current Medications Medications (Trade) Dose Ordered Sig/Von Route PRN Reason Start Time Stop Time Status Last Admin Dose Admin Pantoprazole Sodium (PROTONIX VIAL for IV PUSH) 40 mg 1X ONCE IVP 07/26/18 23:30 07/26/18 23:32 DC 07/27/18 00:06 Sodium Chloride 500 ml @ 500 mls/hr 1X ONCE IV 07/26/18 23:30 07/27/18 00:29 DC 07/26/18 23:30 Pantoprazole Sodium 80 mg/ Sodium Chloride 100 ml @ 10 mls/hr Q10H IV 07/27/18 02:00 07/27/18 02:54 Sodium Chloride 1,000 ml @ 200 mls/hr 1X ONCE IV 07/27/18 02:00 07/27/18 06:59 DC 07/27/18 02:54 Imaging: Imaging: CT A/P IMPRESSION: Limited evaluation of solid abdominal and pelvic organs due to lack of IV contrast. 1. No bowel obstruction. Sigmoid diverticulosis without diverticulitis. 2. No nephrolithiasis or hydronephrosis. 3. Mild ectasia of the infrarenal abdominal aorta. PE: GEN: NAD HEENT: Atraumatic, PERRL LUNGS: CTAB HEART: RRR ABD: NABS, S/ND/NT EXTREMITY: No edema SKIN: No rashes, no jaundice NEURO/PSYCH: A & O 3, left-sided weakness A/P: A/P: Rectal bleeding GERD CRC screen - UTD (2012) Diverticulosis S/p cholecystectomy ?h/o Hep C CKD -- Hgb has drifted sicne last admission, BUN and Cr slightly more elevated than normal. Reviewed w/ Dr. Corona - continue NPO and PPI, hold blood thinning meds, and observe. Consider bleeding scan if bleeding recurs. Check Hepatitis panel for completeness. MARITZA STAUFFER July 27, 2018 09:24
[2018-07-27 12:30] LABS: HEMATOCRIT 33.4 % (39.0-53.0); HEMOGLOBIN 10.9 g/dL (13.0-17.5); RED BLOOD COUNT 3.79 x10^6/uL (4.30-5.70); RED CELL DISTRIBUTION WIDTH 15.2 % (11.5-14.5); WHITE BLOOD COUNT 15.9 x10^3/uL (4.0-11.0)
--- NOTE | 2018-07-27 15:39 | NUR ---
SS following up with discharge planning. SS reviewed pt chart. Pt is from [facility], ; fax [phone]. SS contacted [facility] to verify pt's previous placement. [facility] verified that pt is from there facility and would be able to return when medically stable for discharge. Pt's RN notified. SS phoned and faxed updated clinical to [facility].
[2018-07-27] MEDS ORDERED: HALOPERIDOL LACTATE 5 MG/ML VIAL. IM PRN (17:15)
[2018-07-27] MEDS ORDERED: hydrALAZINE 20 MG/ML VIAL. IVP PRN (17:15)
[2018-07-27] MEDS: IPRATRPIUM/ALBUTEROL 0.5/2.5MG 3 ML NEBU. NEB SCH (18:11)
[2018-07-27] MEDS: PANTOPRAZOLE 40 MG TABLET.DR. PO SCH (19:06)
[2018-07-27] MEDS: NITROGLYCERIN OINT 1 GM PACKET. TD SCH (19:06)
[2018-07-27] MEDS: ATORVASTATIN CALCIUM 40 MG TABLET. PO SCH (21:00)
[2018-07-28] VITALS (11 sets, daily range): BP systolic 137–189; BP diastolic 77–111
[2018-07-28] MEDS: NITROGLYCERIN OINT 1 GM PACKET. TD SCH ×5 (01:15→23:36)
--- NOTE | 2018-07-28 07:54 | PDOC ---
PROGRESS NOTES Chief Complaint Chief Complaint A/P: Acute blood loss anemia - with his BUN elevation there is concern he may have UGIB, and with hep c history possibly has cirrhosis, will get Q12 H&H and consult GI Hypernatremia - Likely from poor PO intake Recent Acute CVA - Area of acute ischemia/infarction is seen involving portions of the right temporal, right occipital and right frontoparietal lobes as discussed above. This is a right MCA distribution. There is mild surrounding edema without evidence of significant mass effect. was on eliquis. Continue Lipitor 40 mg HS. Hx of PAFIB - needs anticoagulation, but with GI bleeding is on hold. Cardiology to see as well HTN: labile. monitor on meds HLP - cont statin CECIL on CKD stage 4 - likely vasomotor Agitation/Aggressive Behavior - on antipsychotics Weak cough - start nebs today, may need glycopyrrolate Acute/subacute right frontal, parietal, temporal and occipital lobe infarcts. 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 Amphetamine positive. Cannabinoids positive. Obesity. Hep C history - will check viral load FEN - NPO PPX - PPI gtt FULL CODE CVC admission for GI bleed, I am concerned this may be 2/2 UGIB. 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 Gutiérrez is a 68 year old M w/ PMHx HTN, HLD, Hep C, admitted for stroke symptoms to [facility] 07/18/18 and discharged to [facility] on 07/25/18. He last used meth prior to admit and smokes marijuana as well. He was seen by cardiology, started on heparin GTT, cardizem GTT for management for his afib, seen by neurology as well, MRI confirmed area of acute ischemia/infarction is seen involving portions of the right temporal, right occipital and right frontoparietal lobes. This is a right MCA distribution. There is mild surrounding edema without evidence of significant mass effect. He was continuing to have difficulty swallowing, GI was consulted for PEG consideration, was on PPN for nearly 1 week for nutrition. Worked with PT/OT/SCREW MACHINE TENDER daily, was initially confused and agitated, however this improved over the course of 7 days, not requiring haldol and ativan. Has been tolerating ice chips per his well. Up and alert this morning, he is frustrated with his stroke symptoms. Videoswallow showed penetration with honey-thickened liquids. Discussed with he and his bedside. His cough is still very weak. Given nebs with improvement. IS and acapella flutter valve both bedside. Was discharged to [facility] on Eliquis. Back to ER last night after passing bright red blood ("a lot") w/ stool yesterday at [facility]. Recurred in ER but not in ICU since admission. He denies n/v, abd pain, diarrhea, constipation, and dizziness. Says this occurred in the past "with straining" - indicated maybe related to hemorrhoids than. Has been NPO on PPI drip - he's thirsty. Says was eating and drinking okay prior to admission. EGD 08/2017: [place] Grade A esophagitis (biopsy c/w reflux) and proximal esophageal biopsies c/w gastric inlet patch, normal stomach, normal duodenum. Colonoscopy 11/2012: sigmoid polyp (no significant findings on biopsy), diverticulosis, hemorrhoids. Chart lists h/o Hep C - antibody positive this visit Last admission, Hgb 14-15 range. This time 12.6 to 11.7. Last admission, BUN in 30s. This time 71 w/ Cr 1.9. Diverticulosis on CT. Admitted to ICU with GI following, was transferred to [facility] after 24 hours stable Hb, no further bloody BM. Vitals Vitals Vital Signs Date Time Temp Pulse Resp B/P (MAP) Pulse Ox O2 Delivery O2 Flow Rate FiO2 07/28/18 05:47 80 143/82 07/28/18 03:00 98.5 22 92 Room Air 98.5 07/27/18 08:00 2.0 Physical Exam General: Alert, Cooperative, No acute distress Lungs: Clear, Other Abdomen: Normal bowel sounds, Soft, No tenderness, No hepatosplenomegaly, No masses Extremities: No clubbing, No cyanosis, No edema, Normal pulses, No tenderness/swelling Skin: No rashes, No breakdown, No significant lesion Labs LABS Laboratory Tests Test 07/27/18 08:10 07/27/18 12:15 White Blood Count 15.5 x10^3/uL (4.0-11.0) 15.9 x10^3/uL (4.0-11.0) Red Blood Count 3.81 x10^6/uL (4.30-5.70) 3.79 x10^6/uL (4.30-5.70) Hemoglobin 11.3 g/dL (13.0-17.5) 10.9 g/dL (13.0-17.5) Hematocrit 33.6 % (39.0-53.0) 33.4 % (39.0-53.0) Mean Corpuscular Volume 88 fL (79-100) 88 fL (79-100) Mean Corpuscular Hemoglobin 30 pg (25-35) 29 pg (25-35) Mean Corpuscular Hemoglobin Concent 34 g/dL (31-37) 33 g/dL (31-37) Red Cell Distribution Width 14.9 % (11.5-14.5) 15.2 % (11.5-14.5) Platelet Count 362 x10^3/uL (140-400) 349 x10^3/uL (140-400) Hepatitis A IgM Antibody Nonreactive (Nonreactive) Hepatitis B Surface Antigen Nonreactive (Nonreactive) Hepatitis B Core IgM Antibody Nonreactive (Nonreactive) Hepatitis C IgG Antibody Reactive (Nonreactive) Assessment and Plan Assessmemt and Plan Problems Medical Problems: (1) Acute on chronic renal failure Status: Acute (2) Anemia Status: Acute (3) Anticoagulant-induced bleeding Status: Acute (4) Hypoalbuminemia Status: Acute Comment Review of Relevant I have reviewed the following items dylan (where applicable) has been applied. Labs Laboratory Tests Test 07/26/18 23:37 07/27/18 00:10 07/27/18 04:00 07/27/18 05:00 White Blood Count 15.9 x10^3/uL (4.0-11.0) 15.8 x10^3/uL (4.0-11.0) Red Blood Count 4.37 x10^6/uL (4.30-5.70) 4.08 x10^6/uL (4.30-5.70) Hemoglobin 12.6 g/dL (13.0-17.5) 11.7 g/dL (13.0-17.5) Hematocrit 38.5 % (39.0-53.0) 35.7 % (39.0-53.0) Mean Corpuscular Volume 88 fL (79-100) 88 fL (79-100) Mean Corpuscular Hemoglobin 29 pg (25-35) 29 pg (25-35) Mean Corpuscular Hemoglobin Concent 33 g/dL (31-37) 33 g/dL (31-37) Red Cell Distribution Width 14.7 % (11.5-14.5) 14.6 % (11.5-14.5) Platelet Count 386 x10^3/uL (140-400) 371 x10^3/uL (140-400) Neutrophils (%) (Auto) 82 % (31-73) Lymphocytes (%) (Auto) 9 % (24-48) Monocytes (%) (Auto) 9 % (0-9) Eosinophils (%) (Auto) 1 % (0-3) Basophils (%) (Auto) 1 % (0-3) Neutrophils # (Auto) 13.1 x10^3uL (1.8-7.7) Lymphocytes # (Auto) 1.3 x10^3/uL (1.0-4.8) Monocytes # (Auto) 1.4 x10^3/uL (0.0-1.1) Eosinophils # (Auto) 0.1 x10^3/uL (0.0-0.7) Basophils # (Auto) 0.1 x10^3/uL (0.0-0.2) Prothrombin Time 14.2 SEC (11.7-14.0) Prothromb Time International Ratio 1.1 (0.8-1.1) Activated Partial Thromboplast Time 28 SEC (24-38) Lactic Acid Level 1.5 mmol/L (0.4-2.0) Sodium Level 147 mmol/L (136-145) Potassium Level 3.9 mmol/L (3.5-5.1) Chloride Level 113 mmol/L (98-107) Carbon Dioxide Level 19 mmol/L (21-32) Anion Gap 15 (6-14) Blood Urea Nitrogen 71 mg/dL (8-26) Creatinine 1.9 mg/dL (0.7-1.3) Estimated GFR (Cockcroft-Gault) 35.5 BUN/Creatinine Ratio 37 (6-20) Glucose Level 130 mg/dL (70-99) Calcium Level 8.4 mg/dL (8.5-10.1) Total Bilirubin 0.3 mg/dL (0.2-1.0) Aspartate Amino Transf (AST/SGOT) 19 U/L (15-37) Alanine Aminotransferase (ALT/SGPT) 38 U/L (16-63) Alkaline Phosphatase 87 U/L (46-116) Troponin I Quantitative 0.021 ng/mL (0.000-0.055) UR-Yrn-V-Type Natriuretic Peptide 1609 pg/mL (0-124) Total Protein 5.8 g/dL (6.4-8.2) Albumin 2.6 g/dL (3.4-5.0) Albumin/Globulin Ratio 0.8 (1.0-1.7) Lipase 98 U/L (73-393) Nasal Screen MRSA (PCR) Negative (Negative) Test 07/27/18 08:10 07/27/18 12:15 White Blood Count 15.5 x10^3/uL (4.0-11.0) 15.9 x10^3/uL (4.0-11.0) Red Blood Count 3.81 x10^6/uL (4.30-5.70) 3.79 x10^6/uL (4.30-5.70) Hemoglobin 11.3 g/dL (13.0-17.5) 10.9 g/dL (13.0-17.5) Hematocrit 33.6 % (39.0-53.0) 33.4 % (39.0-53.0) Mean Corpuscular Volume 88 fL (79-100) 88 fL (79-100) Mean Corpuscular Hemoglobin 30 pg (25-35) 29 pg (25-35) Mean Corpuscular Hemoglobin Concent 34 g/dL (31-37) 33 g/dL (31-37) Red Cell Distribution Width 14.9 % (11.5-14.5) 15.2 % (11.5-14.5) Platelet Count 362 x10^3/uL (140-400) 349 x10^3/uL (140-400) Hepatitis A IgM Antibody Nonreactive (Nonreactive) Hepatitis B Surface Antigen Nonreactive (Nonreactive) Hepatitis B Core IgM Antibody Nonreactive (Nonreactive) Hepatitis C IgG Antibody Reactive (Nonreactive) Laboratory Tests Test 07/27/18 08:10 07/27/18 12:15 White Blood Count 15.5 x10^3/uL (4.0-11.0) 15.9 x10^3/uL (4.0-11.0) Red Blood Count 3.81 x10^6/uL (4.30-5.70) 3.79 x10^6/uL (4.30-5.70) Hemoglobin 11.3 g/dL (13.0-17.5) 10.9 g/dL (13.0-17.5) Hematocrit 33.6 % (39.0-53.0) 33.4 % (39.0-53.0) Mean Corpuscular Volume 88 fL (79-100) 88 fL (79-100) Mean Corpuscular Hemoglobin 30 pg (25-35) 29 pg (25-35) Mean Corpuscular Hemoglobin Concent 34 g/dL (31-37) 33 g/dL (31-37) Red Cell Distribution Width 14.9 % (11.5-14.5) 15.2 % (11.5-14.5) Platelet Count 362 x10^3/uL (140-400) 349 x10^3/uL (140-400) Hepatitis A IgM Antibody Nonreactive (Nonreactive) Hepatitis B Surface Antigen Nonreactive (Nonreactive) Hepatitis B Core IgM Antibody Nonreactive (Nonreactive) Hepatitis C IgG Antibody Reactive (Nonreactive) Medications Current Medications Pantoprazole Sodium (PROTONIX VIAL for IV PUSH) 40 mg 1X ONCE IVP Last administered on 07/27/18at 00:06; Start 07/26/18 at 23:30; Stop 07/26/18 at 23:32; Status DC Sodium Chloride 500 ml @ 500 mls/hr 1X ONCE IV Last administered on 07/26/18at 23:30; Start 07/26/18 at 23:30; Stop 07/27/18 at 00:29; Status DC Sodium Chloride 1,000 ml @ 125 mls/hr Q8H IV ; Start 07/27/18 at 01:00; Stop 07/28/18 at 00:59; Status DC Pantoprazole Sodium 80 mg/ Sodium Chloride 100 ml @ 10 mls/hr Q10H IV Last ad ministered on 07/27/18at 12:13; Start 07/27/18 at 02:00; Stop 07/27/18 at 14:21; Status DC Sodium Chloride 1,000 ml @ 200 mls/hr 1X ONCE IV Last administered on 07/27/18at 02:54; Start 07/27/18 at 02:00; Stop 07/27/18 at 06:59; Status DC Pantoprazole Sodium (Protonix) 40 mg BIDAC PO Last administered on 07/27/18at 19:06; Start 07/27/18 at 16:30 Atorvastatin Calcium (Lipitor) 40 mg QHS PO Last administered on 07/27/18at 21:00; Start 07/27/18 at 21:00 Albuterol/ Ipratropium (Duoneb) 3 ml RTQID NEB Last administered on 07/27/18at 18:11; Start 07/27/18 at 20:00 Nitroglycerin (Nitro-Bid Oint) 0.5 inch Q6HRS TD Last administered on 07/28/18at 05:47; Start 07/27/18 at 18:00 Diltiazem HCl (Cardizem 24hr Cd) 240 mg DAILY PO ; Start 07/28/18 at 09:00 Fentanyl Citrate (Fentanyl 2ml Vial) 25 mcg PRN Q3HRS PRN IV PAIN; Start 07/27/18 at 17:15 Haloperidol Lactate (Haldol Inj) 2 mg PRN Q4HRS PRN IM AGITATION; Start 07/27/18 at 17:15 Hydralazine HCl (Apresoline Inj) 10 mg PRN Q4HRS PRN IVP give for SBP > 160; Start 07/27/18 at 17:15 Lorazepam (Ativan Inj) 1 mg PRN Q4HRS PRN IV ANXIETY / AGITATION Last administered on 07/27/18at 22:10; Start 07/27/18 at 17:15 Active Scripts Active Reported [Lorazepam] 1 Mg IV Q4HRS PRN [Fentanyl] 0.25 Mcg IV Q3HRS PRN [Haldol] 2 Mg IM Q4HRS PRN [Hydralazine] 10 Mg IV Q4HRS PRN Aspirin 325 Mg Tablet 1 Tab PO DAILY Diltiazem 24HR Cd (Diltiazem Hcl) 120 Mg Cap.er.24h 2 Cap PO DAILY [clinimix e/dextrose] 50 Ml IV Nitro-Bid (Nitroglycerin) 1 Gm Oint...g. 0.5 Inch TD Q6HRS Duoneb 0.5-3(2.5) Mg/3 Ml (Albuterol/Ipratropium) 3 Ml Ampul.neb 3 Ml NEB QID Atorvastatin Calcium 40 Mg Tablet 1 Tab PO QHS Vitals/I & O Vital Sign - Last 24 Hours 07/27/18 07/27/18 07/27/18 07/27/18 08:00 08:00 09:00 11:00 Temp 98.3 98.3 Pulse 90 96 88 Resp 21 20 21 B/P (MAP) 171/102 (125) 173/106 (128) 154/95 (114) Pulse Ox 97 97 95 O2 Delivery Nasal Cannula Room Air Nasal Cannula Nasal Cannula O2 Flow Rate 2.0 07/27/18 07/27/18 07/27/18 07/27/18 12:00 14:00 16:00 18:15 Temp 98.5 97.8 98.5 97.8 Pulse 92 105 Resp 26 24 B/P (MAP) 187/97 (127) 193/105 (134) Pulse Ox 97 98 98 O2 Delivery Nasal Cannula Room Air Room Air Room Air 07/27/18 07/27/18 07/27/18 07/27/18 19:00 19:06 20:00 23:00 Temp 98.1 98.8 98.1 98.8 Pulse 103 65 104 Resp 18 22 B/P (MAP) 159/106 (123) 135/96 (109) Pulse Ox 98 97 O2 Delivery Room Air Room Air Room Air 07/28/18 07/28/18 07/28/18 01:15 03:00 05:47 Temp 98.5 98.5 Pulse 104 80 80 Resp 22 B/P (MAP) 135/96 143/82 (102) 143/82 Pulse Ox 92 O2 Delivery Room Air Intake and Output 07/27/18 07/27/18 07/28/18 14:59 22:59 06:59 Intake Total 480 ml 360 ml Output Total 200 ml 150 ml 0 ml Balance -200 ml 330 ml 360 ml MICAELA MERCHANT MD July 28, 2018 07:54
[2018-07-28] MEDS: IPRATRPIUM/ALBUTEROL 0.5/2.5MG 3 ML NEBU. NEB SCH ×4 (08:23→20:47)
[2018-07-28] MEDS: PANTOPRAZOLE 40 MG TABLET.DR. PO SCH ×2 (08:47→18:19)
--- NOTE | 2018-07-28 09:13 | PDOC ---
Subjective: Subjective: "Ready to get up." Says he was unaware of any recurrent bleeding. No pain. Objective: Objective: D/w RN - received report of passing dark red blood overnight, kept NPO this morning in hopes of having some sort of GI procedure, tolerated jello yesterday. EGD 08/2017: LA Grade A esophagitis (biopsy c/w reflux) and proximal esophageal biopsies c/w gastric inlet patch, normal stomach, normal duodenum. Colonoscopy 11/2012: sigmoid polyp (no significant findings on biopsy), diverticulosis, hemorrhoids. Vital Signs: Vital Signs Date Time Temp Pulse Resp B/P (MAP) Pulse Ox O2 Delivery O2 Flow Rate FiO2 07/28/18 08:47 112 07/28/18 08:24 97 Room Air 07/28/18 07:00 97.4 20 164/105 (124) 97.4 07/27/18 08:00 2.0 Labs: Laboratory Tests Test 07/27/18 12:15 White Blood Count 15.9 x10^3/uL Red Blood Count 3.79 x10^6/uL Hemoglobin 10.9 g/dL Hematocrit 33.4 % Mean Corpuscular Volume 88 fL Mean Corpuscular Hemoglobin 29 pg Mean Corpuscular Hemoglobin Concent 33 g/dL Red Cell Distribution Width 15.2 % Platelet Count 349 x10^3/uL PE: GEN: NAD LUNGS: CTAB HEART: tachycardic ABD: NABS, S/ND/NT NEURO/PSYCH: less animated than yesterday, awake and alert A/P: Hematochezia GERD, diverticulosis Hep C Recent CVA, A Fib - Eliquis and ASA held -- ?recurrent bleeding overnight Labs are pending this morning. Continue PPI. Was kept NPO - will review w/ Dr. Corona. MARITZA STAUFFER July 28, 2018 09:13
--- NOTE | 2018-07-28 09:56 | PDOC2 ---
NEUROLOGY CONSULT Date of Admission Date of Admission DATE: 07/28/18 TIME: 09:45 Reason for Consult Reason for Consult: History of stroke Referring Physician Referring Physician: Dr. Murray Source Source: Chart review, Patient History of Present Illness History of Present Illness The patient is a 68-year-old right-handed male just discharged 4 days ago after admission for a stroke. He had presented with left-sided weakness, dysarthria, and confusion. He has a history of atrial fibrillation. He had used meth and marijuana. MRI showed area of acute ischemia/infarction in right temporal, right occipital and right frontoparietal lobes, in the right MCA distribution. There were old left frontal and left basal ganglia lacunar infarcts. Echocardiogram and carotid Doppler studies were negative. The patient was started on Eliquis, but developed lower G.I. bleeding at [facility] and was brought to our emergency department. There has been no further bleeding since the patient reach the floor. He denies any new stroke symptoms. Past Medical History Cardiovascular: AFIB, CAD, HTN CENTRAL NERVOUS SYSTEM: CVA GI: Constipation, Diverticulosis (/itis), GERD, GI bleed, Hemorrhoids, Peptic Ulcer disease, Other (Hiatal hernia) Hepatobiliary: Hep A/B/C (C) Psych: Anxiety, Addictions Musculoskeletal: Osteoarthritis Renal/: Chronic renal failure (CKD 4) Past Surgical History Past Surgical History: Cholecystectomy Family History Family History: No pertinent hx Social History Social History , had been abusing marijuana and methamphetamine, also uses alcohol, retired Current Medications Current Medications Current Medications Pantoprazole Sodium (PROTONIX VIAL for IV PUSH) 40 mg 1X ONCE IVP Last administered on 07/27/18at 00:06; Start 07/26/18 at 23:30; Stop 07/26/18 at 23: 32; Status DC Sodium Chloride 500 ml @ 500 mls/hr 1X ONCE IV Last administered on 07/26/18at 23:30; Start 07/26/18 at 23:30; Stop 07/27/18 at 00:29; Status DC Sodium Chloride 1,000 ml @ 125 mls/hr Q8H IV ; Start 07/27/18 at 01:00; Stop 07/28/18 at 00:59; Status DC Pantoprazole Sodium 80 mg/ Sodium Chloride 100 ml @ 10 mls/hr Q10H IV Last administered on 07/27/18 12:13; Start 07/27/18 at 02:00; Stop 07/27/18 at 14:21; Status DC Sodium Chloride 1,000 ml @ 200 mls/hr 1X ONCE IV Last administered on 07/27/18 02:54; Start 07/27/18 at 02:00; Stop 07/27/18 at 06:59; Status DC Pantoprazole Sodium (Protonix) 40 mg BIDAC PO Last administered on 07/28/18 08:47; Start 07/27/18 at 16:30 Atorvastatin Calcium (Lipitor) 40 mg QHS PO Last administered on 07/27/18 21:00; Start 07/27/18 at 21:00 Albuterol/ Ipratropium (Duoneb) 3 ml RTQID NEB Last administered on 07/28/18 08:23; Start 07/27/18 at 20:00 Nitroglycerin (Nitro-Bid Oint) 0.5 inch Q6HRS TD Last administered on 07/28/18 05:47; Start 07/27/18 at 18:00 Diltiazem HCl (Cardizem 24hr Cd) 240 mg DAILY PO Last administered on 07/28/18 08:47; Start 07/28/18 at 09:00 Fentanyl Citrate (Fentanyl 2ml Vial) 25 mcg PRN Q3HRS PRN IV PAIN; Start 07/27/18 at 17:15 Haloperidol Lactate (Haldol Inj) 2 mg PRN Q4HRS PRN IM AGITATION; Start 07/27/18 at 17:15 Hydralazine HCl (Apresoline Inj) 10 mg PRN Q4HRS PRN IVP give for SBP > 160; Start 07/27/18 at 17:15 Lorazepam (Ativan Inj) 1 mg PRN Q4HRS PRN IV ANXIETY / AGITATION Last administered on 07/27/18 22:10; Start 07/27/18 at 17:15 Active Scripts Active Reported [Lorazepam] 1 Mg IV Q4HRS PRN [Fentanyl] 0.25 Mcg IV Q3HRS PRN [Haldol] 2 Mg IM Q4HRS PRN [Hydralazine] 10 Mg IV Q4HRS PRN Aspirin 325 Mg Tablet 1 Tab PO DAILY Diltiazem 24HR Cd (Diltiazem Hcl) 120 Mg Cap.er.24h 2 Cap PO DAILY [clinimix e/dextrose] 50 Ml IV Nitro-Bid (Nitroglycerin) 1 Gm Oint...g. 0.5 Inch TD Q6HRS Duoneb 0.5-3(2.5) Mg/3 Ml (Albuterol/Ipratropium) 3 Ml Ampul.neb 3 Ml NEB QID Atorvastatin Calcium 40 Mg Tablet 1 Tab PO QHS Allergies Allergies: Coded Allergies: Tetracyclines (Verified Allergy, Intermediate, 07/27/18) hydromorphone (Verified Allergy, Intermediate, 07/27/18) ROS Review of System Negative for fever, chills, weight loss, shortness of breath, chest pain, indigestion, hematochezia, melena, and dysuria. Full 14-point review of systems is negative. Physical Exam Physical Examination General: Well-developed, well-nourished white male in no acute distress HEENT: Normocephalic andatraumatic. Tympanic membranes clear.Temporal arteriespulsatile and nontender.Fundoscopic exam unremarkable Neck: Supple without bruit, no meningismus Musculoskeletal: Stability:see neurologic. Gait exam:see neurologic. Tone:see neurologic.Strength:see neurologic. Neurological: Mental Status:orientation, memory, attention span/concentration, language, fund of knowledge: knows location, not date, names and repeats well, speech fluent. Cranial Nerves:Pupils equal and reactive to light, extraocular movements areintact; there is some left visual inattention. Facial sensation is normal. There is no facial asymmetry. Vestibulo-ocular reflex is intact. Palate elevates and tongue protrudes in midline. All other cranial related problems are negative except as mentioned before.Reflexes:2+ and symmetric with flexor plantar responses. Motor: 4/5, weaker on the left. Coordination:Finger-nose finger and qisp-rp-umhw testing are normal. Rapid alternating movements and fine finger movements are intact. Gait: not tested. Sensory:Normal pinprick, vibration, light touch, proprioception. Vitals VITALS Vital Signs Date Time Temp Pulse Resp B/P (MAP) Pulse Ox O2 Delivery O2 Flow Rate FiO2 07/28/18 08:47 112 07/28/18 08:24 97 Room Air 07/28/18 07:00 97.4 20 164/105 (124) 97.4 07/27/18 08:00 2.0 Labs Labs Laboratory Tests Test 07/26/18 23:37 07/27/18 00:10 07/27/18 04:00 07/27/18 05:00 White Blood Count 15.9 x10^3/uL (4.0-11.0) 15.8 x10^3/uL (4.0-11.0) Red Blood Count 4.37 x10^6/uL (4.30-5.70) 4.08 x10^6/uL (4.30-5.70) Hemoglobin 12.6 g/dL (13.0-17.5) 11.7 g/dL (13.0-17.5) Hematocrit 38.5 % (39.0-53.0) 35.7 % (39.0-53.0) Mean Corpuscular Volume 88 fL (79-100) 88 fL (79-100) Mean Corpuscular Hemoglobin 29 pg (25-35) 29 pg (25-35) Mean Corpuscular Hemoglobin Concent 33 g/dL (31-37) 33 g/dL (31-37) Red Cell Distribution Width 14.7 % (11.5-14.5) 14.6 % (11.5-14.5) Platelet Count 386 x10^3/uL (140-400) 371 x10^3/uL (140-400) Neutrophils (%) (Auto) 82 % (31-73) Lymphocytes (%) (Auto) 9 % (24-48) Monocytes (%) (Auto) 9 % (0-9) Eosinophils (%) (Auto) 1 % (0-3) Basophils (%) (Auto) 1 % (0-3) Neutrophils # (Auto) 13.1 x10^3uL (1.8-7.7) Lymphocytes # (Auto) 1.3 x10^3/uL (1.0-4.8) Monocytes # (Auto) 1.4 x10^3/uL (0.0-1.1) Eosinophils # (Auto) 0.1 x10^3/uL (0.0-0.7) Basophils # (Auto) 0.1 x10^3/uL (0.0-0.2) Prothrombin Time 14.2 SEC (11.7-14.0) Prothromb Time International Ratio 1.1 (0.8-1.1) Activated Partial Thromboplast Time 28 SEC (24-38) Lactic Acid Level 1.5 mmol/L (0.4-2.0) Sodium Level 147 mmol/L (136-145) Potassium Level 3.9 mmol/L (3.5-5.1) Chloride Level 113 mmol/L (98-107) Carbon Dioxide Level 19 mmol/L (21-32) Anion Gap 15 (6-14) Blood Urea Nitrogen 71 mg/dL (8-26) Creatinine 1.9 mg/dL (0.7-1.3) Estimated GFR (Cockcroft-Gault) 35.5 BUN/Creatinine Ratio 37 (6-20) Glucose Level 130 mg/dL (70-99) Calcium Level 8.4 mg/dL (8.5-10.1) Total Bilirubin 0.3 mg/dL (0.2-1.0) Aspartate Amino Transf (AST/SGOT) 19 U/L (15-37) Alanine Aminotransferase (ALT/SGPT) 38 U/L (16-63) Alkaline Phosphatase 87 U/L (46-116) Troponin I Quantitative 0.021 ng/mL (0.000-0.055) PW-Ojf-X-Type Natriuretic Peptide 1609 pg/mL (0-124) Total Protein 5.8 g/dL (6.4-8.2) Albumin 2.6 g/dL (3.4-5.0) Albumin/Globulin Ratio 0.8 (1.0-1.7) Lipase 98 U/L (73-393) Nasal Screen MRSA (PCR) Negative (Negative) Test 07/27/18 08:10 07/27/18 12:15 White Blood Count 15.5 x10^3/uL (4.0-11.0) 15.9 x10^3/uL (4.0-11.0) Red Blood Count 3.81 x10^6/uL (4.30-5.70) 3.79 x10^6/uL (4.30-5.70) Hemoglobin 11.3 g/dL (13.0-17.5) 10.9 g/dL (13.0-17.5) Hematocrit 33.6 % (39.0-53.0) 33.4 % (39.0-53.0) Mean Corpuscular Volume 88 fL (79-100) 88 fL (79-100) Mean Corpuscular Hemoglobin 30 pg (25-35) 29 pg (25-35) Mean Corpuscular Hemoglobin Concent 34 g/dL (31-37) 33 g/dL (31-37) Red Cell Distribution Width 14.9 % (11.5-14.5) 15.2 % (11.5-14.5) Platelet Count 362 x10^3/uL (140-400) 349 x10^3/uL (140-400) Hepatitis A IgM Antibody Nonreactive (Nonreactive) Hepatitis B Surface Antigen Nonreactive (Nonreactive) Hepatitis B Core IgM Antibody Nonreactive (Nonreactive) Hepatitis C IgG Antibody Reactive (Nonreactive) Laboratory Tests Test 07/27/18 12:15 White Blood Count 15.9 x10^3/uL (4.0-11.0) Red Blood Count 3.79 x10^6/uL (4.30-5.70) Hemoglobin 10.9 g/dL (13.0-17.5) Hematocrit 33.4 % (39.0-53.0) Mean Corpuscular Volume 88 fL (79-100) Mean Corpuscular Hemoglobin 29 pg (25-35) Mean Corpuscular Hemoglobin Concent 33 g/dL (31-37) Red Cell Distribution Width 15.2 % (11.5-14.5) Platelet Count 349 x10^3/uL (140-400) Assessment/Plan Assessment/Plan Impression: Cardio embolic strokes to the right middle cerebral artery distribution last week, now admitted with G.I. bleed from [facility]. No evidence of any new stroke. Recommendations: No additional neurological studies needed Anticoagulation resumption per cardiology and gastroenterology, or consider ref erral for intervention such as atrial appendage ablation. Continue rehabilitation. Thank you for letting me help with the patient's care. RAJIV GARRISON MD July 28, 2018 09:56
[2018-07-28 10:37] LABS: BASO # 0.1 x10^3/uL (0.0-0.2); BASO % 0 % (0-3); EOS # 0.2 x10^3/uL (0.0-0.7); EOS % 1 % (0-3); HEMATOCRIT 31.4 % (39.0-53.0); HEMOGLOBIN 10.1 g/dL (13.0-17.5); LYMPH # 1.2 x10^3/uL (1.0-4.8); LYMPH % 7 % (24-48); MEAN CORPUSCULAR HEMOGLOBIN 29 pg (25-35); MEAN CORPUSCULAR HGB CONC 32 g/dL (31-37); MEAN CORPUSCULAR VOLUME 88 fL (79-100); MONO % 6 % (0-9); NEUT % 85 % (31-73); PLATELET COUNT 378 x10^3/uL (140-400); RED BLOOD COUNT 3.55 x10^6/uL (4.30-5.70); WHITE BLOOD COUNT 16.5 x10^3/uL (4.0-11.0)
[2018-07-28 10:44] LABS: ALBUMIN 2.7 g/dL (3.4-5.0); ALBUMIN/GLOBULIN RATIO 0.9 (1.0-1.7); CALCIUM 8.7 mg/dL (8.5-10.1); GFR 33.5; POTASSIUM 4.2 mmol/L (3.5-5.1); TOTAL BILIRUBIN 0.3 mg/dL (0.2-1.0); TOTAL PROTEIN 5.8 g/dL (6.4-8.2)
[2018-07-28] MEDS: IV RINGERS,LACTATED 1000ML 1,000 ML IV SCH (11:00)
[2018-07-28] MEDS ORDERED: MIDAZOLAM HCL/PF 5 MG/5 ML VIAL. ONE (11:23)
[2018-07-28] MEDS ORDERED: fentaNYL PF VIAL 100 MCG/2 ML VIAL ONE (11:23)
[2018-07-28] MEDS ORDERED: MIDAZOLAM HCL/PF 5 MG/5 ML VIAL. IV ONE (11:35)
[2018-07-28] MEDS ORDERED: fentaNYL PF VIAL 100 MCG/2 ML VIAL IV ONE (11:35)
--- NOTE | 2018-07-28 11:47 | PDOC4 ---
Operative Note Operative Note EGD with bx Meds Versed 1 mg/Fentanyl 25 mcg IV Pre-op dx melena/acute blood loss anemia Post-op dx non-erosive gastritis s/p bx cratered duodenal ulcer with clean base ist portion duodenum Plan PPI therapy serial CBCs hold aspirin/nsaids/anticoagulation for 48 hours diet full liquids LAURA RIBEIRO MD July 28, 2018 11:47
--- NOTE | 2018-07-28 12:05 | PDOC ---
BARBY BOSTON WAREHOUSE TRAFFIC SUPERVISOR 07/28/18 1205: CARDIO Progress Notes Date and Time Date of Service 07/28/18 Time of Evaluation 1140 Subjective Subjective: No Chest Pain, No shortness of breath Vitals Vitals Vital Signs Date Time Temp Pulse Resp B/P (MAP) Pulse Ox O2 Delivery O2 Flow Rate FiO2 07/28/18 11:40 118 20 95 Nasal Cannula 3 07/28/18 11:40 97.3 132/73 97.3 Weight Weight [ ] Input and Output Intake and Output Intake and Output 07/28/18 06:59 Intake Total 840 ml Output Total 350 ml Balance 490 ml Intake Oral 840 ml Output Urine Total 350 ml Stool Total 0 ml # Voids 6 Laboratory Labs Laboratory Tests Test 07/27/18 12:15 07/28/18 10:10 White Blood Count 15.9 x10^3/uL (4.0-11.0) 16.5 x10^3/uL (4.0-11.0) Red Blood Count 3.79 x10^6/uL (4.30-5.70) 3.55 x10^6/uL (4.30-5.70) Hemoglobin 10.9 g/dL (13.0-17.5) 10.1 g/dL (13.0-17.5) Hematocrit 33.4 % (39.0-53.0) 31.4 % (39.0-53.0) Mean Corpuscular Volume 88 fL (79-100) 88 fL (79-100) Mean Corpuscular Hemoglobin 29 pg (25-35) 29 pg (25-35) Mean Corpuscular Hemoglobin Concent 33 g/dL (31-37) 32 g/dL (31-37) Red Cell Distribution Width 15.2 % (11.5-14.5) 15.0 % (11.5-14.5) Platelet Count 349 x10^3/uL (140-400) 378 x10^3/uL (140-400) Neutrophils (%) (Auto) 85 % (31-73) Lymphocytes (%) (Auto) 7 % (24-48) Monocytes (%) (Auto) 6 % (0-9) Eosinophils (%) (Auto) 1 % (0-3) Basophils (%) (Auto) 0 % (0-3) Neutrophils # (Auto) 14.0 x10^3uL (1.8-7.7) Lymphocytes # (Auto) 1.2 x10^3/uL (1.0-4.8) Monocytes # (Auto) 1.0 x10^3/uL (0.0-1.1) Eosinophils # (Auto) 0.2 x10^3/uL (0.0-0.7) Basophils # (Auto) 0.1 x10^3/uL (0.0-0.2) Sodium Level 153 mmol/L (136-145) Potassium Level 4.2 mmol/L (3.5-5.1) Chloride Level 119 mmol/L (98-107) Carbon Dioxide Level 21 mmol/L (21-32) Anion Gap 13 (6-14) Blood Urea Nitrogen 75 mg/dL (8-26) Creatinine 2.0 mg/dL (0.7-1.3) Estimated GFR (Cockcroft-Gault) 33.5 BUN/Creatinine Ratio 38 (6-20) Glucose Level 135 mg/dL (70-99) Calcium Level 8.7 mg/dL (8.5-10.1) Total Bilirubin 0.3 mg/dL (0.2-1.0) Aspartate Amino Transf (AST/SGOT) 19 U/L (15-37) Alanine Aminotransferase (ALT/SGPT) 44 U/L (16-63) Alkaline Phosphatase 82 U/L (46-116) Total Protein 5.8 g/dL (6.4-8.2) Albumin 2.7 g/dL (3.4-5.0) Albumin/Globulin Ratio 0.9 (1.0-1.7) Physical Exam HEENT: Neck Supple W Full Motion Chest: Symmetric LUNGS: Clear to Auscultation Heart: S1S2, irregularly irregular Abdomen: Soft N/T Extremities: No Edema Neurology: alert, follow commands Assessment Assessment Continuum of care Please seen consult from 07/19/18 for further details HPI This is a 68 yo male, with a history of AFIB and recent CVA, who was started on anticoagulation therapy during hospitalization last week. Was discharged to [facility] 07/25/18. Returned to the ED just after midnight on 07/27 secondary to rectal bleeding. No chest pain, dizziness, diaphoresis, SOA, or nausea/vomiting 1. GI bleed; EGD today 2. PAFIB; started on Eliquis 3. Recent acute CVA with left sided weakness 4. Hypertension; controlled 5. Hyperlipidemia 6. CKD 7. Hepatitis C 8. H/o substance abuse: Meth marijuana Recommendations OAC discontinued due to hematochezia Cardizem for rate control Continue statin Outpatient referral to for JOE closure device. SACHA DÍAZ MD 07/28/18 1710: CARDIO Progress Notes Plan Plan Patient seen and examined. Agree with above nurse practitioner note. Discussed with his that the best option would be a left atrial appendage closure device. He has a large ulcer and his stomach and would be best treated with an to regulation going forward BARBY BOSTON APRN July 28, 2018 12:05 SACHA DÍAZ MD July 28, 2018 17:10
[2018-07-28 12:34] LABS: % ATYL 1 % (0-0); % BANDS 2 % (0-9); % EOS 1 % (0-5); % LYMPHS 6 % (24-48); % MONOS 2 % (0-10); % SEGS 88 % (35-66)
[2018-07-28 12:35] LABS: PLT ESTIMATE ADEQUATE (ADEQUATE)
[2018-07-28] MEDS: ATORVASTATIN CALCIUM 40 MG TABLET. PO SCH (21:18)
[2018-07-29] MEDS: IV RINGERS,LACTATED 1000ML 1,000 ML IV SCH ×3 (00:50→23:56)
[2018-07-29 03:48] VITALS: BP 118/98
[2018-07-29 05:44] LABS: ALBUMIN 2.6 g/dL (3.4-5.0); ALBUMIN/GLOBULIN RATIO 0.9 (1.0-1.7); CALCIUM 8.7 mg/dL (8.5-10.1); GFR 33.5; POTASSIUM 3.7 mmol/L (3.5-5.1); TOTAL BILIRUBIN 0.3 mg/dL (0.2-1.0); TOTAL PROTEIN 5.6 g/dL (6.4-8.2)
[2018-07-29] MEDS: NITROGLYCERIN OINT 1 GM PACKET. TD SCH ×4 (05:50→23:49)
[2018-07-29 05:52] LABS: BASO % 0 % (0-3); EOS # 0.2 x10^3/uL (0.0-0.7); EOS % 1 % (0-3); HEMATOCRIT 27.5 % (39.0-53.0); HEMOGLOBIN 8.9 g/dL (13.0-17.5); LYMPH # 1.3 x10^3/uL (1.0-4.8); LYMPH % 9 % (24-48); MEAN CORPUSCULAR HEMOGLOBIN 29 pg (25-35); MEAN CORPUSCULAR HGB CONC 32 g/dL (31-37); MEAN CORPUSCULAR VOLUME 89 fL (79-100); MONO # 1.5 x10^3/uL (0.0-1.1); MONO % 11 % (0-9); NEUT # 11.1 x10^3uL (1.8-7.7); NEUT % 79 % (31-73); PLATELET COUNT 312 x10^3/uL (140-400); RED BLOOD COUNT 3.09 x10^6/uL (4.30-5.70); RED CELL DISTRIBUTION WIDTH 15.6 % (11.5-14.5); WHITE BLOOD COUNT 14.1 x10^3/uL (4.0-11.0)
[2018-07-29 07:00] VITALS: BP 176/93
[2018-07-29] MEDS: IPRATRPIUM/ALBUTEROL 0.5/2.5MG 3 ML NEBU. NEB SCH ×4 (07:31→20:40)
[2018-07-29] MEDS: PANTOPRAZOLE 40 MG TABLET.DR. PO SCH ×2 (07:51→17:10)
--- NOTE | 2018-07-29 10:54 | PDOC ---
PROGRESS NOTES Chief Complaint Chief Complaint A/P: Acute blood loss anemia - with his BUN elevation there is confirmed likely UGIB - EGD - non-erosive gastritis s/p bx and cratered duodenal ulcer with clean base ist portion duodenum, and with hep c history possibly has cirrhosis, will get Q12 H&H and f/u GI recs, PPI, hold ASA, eliquis Hypernatremia - Likely from poor PO intake Recent Acute CVA - Area of acute ischemia/infarction is seen involving portions of the right temporal, right occipital and right frontoparietal lobes as discussed above. This is a right MCA distribution. There is mild surrounding edema without evidence of significant mass effect. was on eliquis. Continue Lipitor 40 mg HS. Hx of PAFIB - needs anticoagulation, but with GI bleeding is on hold. Cardiology to see as well. Likely will need atrial appendage closure device HTN: labile. monitor on meds HLP - cont statin CECIL on CKD stage 4 - likely vasomotor Agitation/Aggressive Behavior - on antipsychotics Weak cough - start nebs today, may need glycopyrrolate Acute/subacute right frontal, parietal, temporal and occipital lobe infarcts. 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 Amphetamine positive. Cannabinoids positive. Obesity. Hep C history - will check viral load FEN - Clear liquid diet PPX - PPI FULL CODE CVC admission for GI bleed, I am concerned this may be 2/2 UGIB. - PT/OT/COMPUTER SYSTEMS INFORMATION DIRECTOR 37 min pt exam, chart review,> 50% of time spent with exam, chart review, pt care coordination History of Present Illness History of Present Illness Mr. Gutiérrez is a 68 year old M w/ PMHx HTN, HLD, Hep C, admitted for stroke symptoms to [facility] 07/18/18 and discharged to [facility] on 07/25/18. He last used meth prior to admit and smokes marijuana as well. He was seen by cardiology, started on heparin GTT, cardizem GTT for management for his afib, seen by neurology as well, MRI confirmed area of acute ischemia/infarction is seen involving portions of the right temporal, right occipital and right frontoparietal lobes. This is a right MCA distribution. There is mild surrounding edema without evidence of significant mass effect. He was continuing to have difficulty swallowing, GI was consulted for PEG consideration, was on PPN for nearly 1 week for nutrition. Worked with PT/OT/COMPUTER SYSTEMS INFORMATION DIRECTOR daily, was initially confused and agitated, however this improved over the course of 7 days, not requiring haldol and ativan. Has been tolerating ice chips per his well. Up and alert this morning, he is frustrated with his stroke symptoms. Videoswallow showed penetration with honey-thickened liquids. Discussed with he and his bedside. His cough is still very weak. Given nebs with improvement. IS and acapella flutter valve both bedside. Was discharged to [facility] on Eliquis. EGD 07/28/18 with cratered duodenal ulcer noted, PPI continued, started diet He has been very agitated and confused. Haldol has helped. Advancing diet. Hb 8.9 this morning. Sodium up to 155. Cr 2 Vitals Vitals Vital Signs Date Time Temp Pulse Resp B/P (MAP) Pulse Ox O2 Delivery O2 Flow Rate FiO2 07/29/18 10:13 103 176/93 07/29/18 08:00 Room Air 3.0 07/29/18 07:32 98 07/29/18 07:00 97.3 22 97.3 Physical Exam General: Alert, Cooperative, No acute distress Lungs: Clear, Other Abdomen: Normal bowel sounds, Soft, No tenderness, No hepatosplenomegaly, No masses Extremities: No clubbing, No cyanosis, No edema, Normal pulses, No tenderness/swelling Skin: No rashes, No breakdown, No significant lesion Labs LABS Laboratory Tests Test 07/29/18 04:15 White Blood Count 14.1 x10^3/uL (4.0-11.0) Red Blood Count 3.09 x10^6/uL (4.30-5.70) Hemoglobin 8.9 g/dL (13.0-17.5) Hematocrit 27.5 % (39.0-53.0) Mean Corpuscular Volume 89 fL (79-100) Mean Corpuscular Hemoglobin 29 pg (25-35) Mean Corpuscular Hemoglobin Concent 32 g/dL (31-37) Red Cell Distribution Width 15.6 % (11.5-14.5) Platelet Count 312 x10^3/uL (140-400) Neutrophils (%) (Auto) 79 % (31-73) Lymphocytes (%) (Auto) 9 % (24-48) Monocytes (%) (Auto) 11 % (0-9) Eosinophils (%) (Auto) 1 % (0-3) Basophils (%) (Auto) 0 % (0-3) Neutrophils # (Auto) 11.1 x10^3uL (1.8-7.7) Lymphocytes # (Auto) 1.3 x10^3/uL (1.0-4.8) Monocytes # (Auto) 1.5 x10^3/uL (0.0-1.1) Eosinophils # (Auto) 0.2 x10^3/uL (0.0-0.7) Basophils # (Auto) 0.0 x10^3/uL (0.0-0.2) Sodium Level 155 mmol/L (136-145) Potassium Level 3.7 mmol/L (3.5-5.1) Chloride Level 119 mmol/L (98-107) Carbon Dioxide Level 22 mmol/L (21-32) Anion Gap 14 (6-14) Blood Urea Nitrogen 68 mg/dL (8-26) Creatinine 2.0 mg/dL (0.7-1.3) Estimated GFR (Cockcroft-Gault) 33.5 BUN/Creatinine Ratio 34 (6-20) Glucose Level 105 mg/dL (70-99) Calcium Level 8.7 mg/dL (8.5-10.1) Total Bilirubin 0.3 mg/dL (0.2-1.0) Aspartate Amino Transf (AST/SGOT) 21 U/L (15-37) Alanine Aminotransferase (ALT/SGPT) 48 U/L (16-63) Alkaline Phosphatase 78 U/L (46-116) Total Protein 5.6 g/dL (6.4-8.2) Albumin 2.6 g/dL (3.4-5.0) Albumin/Globulin Ratio 0.9 (1.0-1.7) Assessment and Plan Assessmemt and Plan Problems Medical Problems: (1) Acute on chronic renal failure Status: Acute (2) Anemia Status: Acute (3) Anticoagulant-induced bleeding Status: Acute (4) Hypoalbuminemia Status: Acute Comment Review of Relevant I have reviewed the following items dylan (where applicable) has been applied. Labs Laboratory Tests Test 07/27/18 12:15 07/28/18 10:10 07/29/18 04:15 White Blood Count 15.9 x10^3/uL (4.0-11.0) 16.5 x10^3/uL (4.0-11.0) 14.1 x10^3/uL (4.0-11.0) Red Blood Count 3.79 x10^6/uL (4.30-5.70) 3.55 x10^6/uL (4.30-5.70) 3.09 x10^6/uL (4.30-5.70) Hemoglobin 10.9 g/dL (13.0-17.5) 10.1 g/dL (13.0-17.5) 8.9 g/dL (13.0-17.5) Hematocrit 33.4 % (39.0-53.0) 31.4 % (39.0-53.0) 27.5 % (39.0-53.0) Mean Corpuscular Volume 88 fL (79-100) 88 fL (79-100) 89 fL (79-100) Mean Corpuscular Hemoglobin 29 pg (25-35) 29 pg (25-35) 29 pg (25-35) Mean Corpuscular Hemoglobin Concent 33 g/dL (31-37) 32 g/dL (31-37) 32 g/dL (31-37) Red Cell Distribution Width 15.2 % (11.5-14.5) 15.0 % (11.5-14.5) 15.6 % (11.5-14.5) Platelet Count 349 x10^3/uL (140-400) 378 x10^3/uL (140-400) 312 x10^3/uL (140-400) Neutrophils (%) (Auto) 85 % (31-73) 79 % (31-73) Lymphocytes (%) (Auto) 7 % (24-48) 9 % (24-48) Monocytes (%) (Auto) 6 % (0-9) 11 % (0-9) Eosinophils (%) (Auto) 1 % (0-3) 1 % (0-3) Basophils (%) (Auto) 0 % (0-3) 0 % (0-3) Neutrophils # (Auto) 14.0 x10^3uL (1.8-7.7) 11.1 x10^3uL (1.8-7.7) Lymphocytes # (Auto) 1.2 x10^3/uL (1.0-4.8) 1.3 x10^3/uL (1.0-4.8) Monocytes # (Auto) 1.0 x10^3/uL (0.0-1.1) 1.5 x10^3/uL (0.0-1.1) Eosinophils # (Auto) 0.2 x10^3/uL (0.0-0.7) 0.2 x10^3/uL (0.0-0.7) Basophils # (Auto) 0.1 x10^3/uL (0.0-0.2) 0.0 x10^3/uL (0.0-0.2) Segmented Neutrophils % 88 % (35-66) Band Neutrophils % 2 % (0-9) Lymphocytes % 6 % (24-48) Atypical Lymphocytes % (Manual) 1 % (0-0) Monocytes % 2 % (0-10) Eosinophils % 1 % (0-5) Platelet Estimate Adequate (ADEQUATE) Sodium Level 153 mmol/L (136-145) 155 mmol/L (136-145) Potassium Level 4.2 mmol/L (3.5-5.1) 3.7 mmol/L (3.5-5.1) Chloride Level 119 mmol/L (98-107) 119 mmol/L (98-107) Carbon Dioxide Level 21 mmol/L (21-32) 22 mmol/L (21-32) Anion Gap 13 (6-14) 14 (6-14) Blood Urea Nitrogen 75 mg/dL (8-26) 68 mg/dL (8-26) Creatinine 2.0 mg/dL (0.7-1.3) 2.0 mg/dL (0.7-1.3) Estimated GFR (Cockcroft-Gault) 33.5 33.5 BUN/Creatinine Ratio 38 (6-20) 34 (6-20) Glucose Level 135 mg/dL (70-99) 105 mg/dL (70-99) Calcium Level 8.7 mg/dL (8.5-10.1) 8.7 mg/dL (8.5-10.1) Total Bilirubin 0.3 mg/dL (0.2-1.0) 0.3 mg/dL (0.2-1.0) Aspartate Amino Transf (AST/SGOT) 19 U/L (15-37) 21 U/L (15-37) Alanine Aminotransferase (ALT/SGPT) 44 U/L (16-63) 48 U/L (16-63) Alkaline Phosphatase 82 U/L (46-116) 78 U/L (46-116) Total Protein 5.8 g/dL (6.4-8.2) 5.6 g/dL (6.4-8.2) Albumin 2.7 g/dL (3.4-5.0) 2.6 g/dL (3.4-5.0) Albumin/Globulin Ratio 0.9 (1.0-1.7) 0.9 (1.0-1.7) Laboratory Tests Test 07/29/18 04:15 White Blood Count 14.1 x10^3/uL (4.0-11.0) Red Blood Count 3.09 x10^6/uL (4.30-5.70) Hemoglobin 8.9 g/dL (13.0-17.5) Hematocrit 27.5 % (39.0-53.0) Mean Corpuscular Volume 89 fL (79-100) Mean Corpuscular Hemoglobin 29 pg (25-35) Mean Corpuscular Hemoglobin Concent 32 g/dL (31-37) Red Cell Distribution Width 15.6 % (11.5-14.5) Platelet Count 312 x10^3/uL (140-400) Neutrophils (%) (Auto) 79 % (31-73) Lymphocytes (%) (Auto) 9 % (24-48) Monocytes (%) (Auto) 11 % (0-9) Eosinophils (%) (Auto) 1 % (0-3) Basophils (%) (Auto) 0 % (0-3) Neutrophils # (Auto) 11.1 x10^3uL (1.8-7.7) Lymphocytes # (Auto) 1.3 x10^3/uL (1.0-4.8) Monocytes # (Auto) 1.5 x10^3/uL (0.0-1.1) Eosinophils # (Auto) 0.2 x10^3/uL (0.0-0.7) Basophils # (Auto) 0.0 x10^3/uL (0.0-0.2) Sodium Level 155 mmol/L (136-145) Potassium Level 3.7 mmol/L (3.5-5.1) Chloride Level 119 mmol/L (98-107) Carbon Dioxide Level 22 mmol/L (21-32) Anion Gap 14 (6-14) Blood Urea Nitrogen 68 mg/dL (8-26) Creatinine 2.0 mg/dL (0.7-1.3) Estimated GFR (Cockcroft-Gault) 33.5 BUN/Creatinine Ratio 34 (6-20) Glucose Level 105 mg/dL (70-99) Calcium Level 8.7 mg/dL (8.5-10.1) Total Bilirubin 0.3 mg/dL (0.2-1.0) Aspartate Amino Transf (AST/SGOT) 21 U/L (15-37) Alanine Aminotransferase (ALT/SGPT) 48 U/L (16-63) Alkaline Phosphatase 78 U/L (46-116) Total Protein 5.6 g/dL (6.4-8.2) Albumin 2.6 g/dL (3.4-5.0) Albumin/Globulin Ratio 0.9 (1.0-1.7) Medications Current Medications Pantoprazole Sodium (PROTONIX VIAL for IV PUSH) 40 mg 1X ONCE IVP Last administered on 07/27/18at 00:06; Start 07/26/18 at 23:30; Stop 07/26/18 at 23:32; Status DC Sodium Chloride 500 ml @ 500 mls/hr 1X ONCE IV Last administered on 07/26/18at 23:30; Start 07/26/18 at 23:30; Stop 07/27/18 at 00:29; Status DC Sodium Chloride 1,000 ml @ 125 mls/hr Q8H IV ; Start 07/27/18 at 01:00; Stop 07/28/18 at 00:59; Status DC Pantoprazole Sodium 80 mg/ Sodium Chloride 100 ml @ 10 mls/hr Q10H IV Last administered on 07/27/18at 12:13; Start 07/27/18 at 02:00; Stop 07/27/18 at 14:21; Status DC Sodium Chloride 1,000 ml @ 200 mls/hr 1X ONCE IV Last administered on 07/27/18at 02:54; Start 07/27/18 at 02:00; Stop 07/27/18 at 06:59; Status DC Pantoprazole Sodium (Protonix) 40 mg BIDAC PO Last administered on 07/29/18 07:51; Start 07/27/18 at 16:30 Atorvastatin Calcium (Lipitor) 40 mg QHS PO Last administered on 07/28/18 21:18; Start 07/27/18 at 21:00 Albuterol/ Ipratropium (Duoneb) 3 ml RTQID NEB Last administered on 07/29/18 07:31; Start 07/27/18 at 20:00 Nitroglycerin (Nitro-Bid Oint) 0.5 inch Q6HRS TD Last administered on 07/29/18 10:13; Start 07/27/18 at 18:00 Diltiazem HCl (Cardizem 24hr Cd) 240 mg DAILY PO Last administered on 07/29/18 07:52; Start 07/28/18 at 09:00 Fentanyl Citrate (Fentanyl 2ml Vial) 25 mcg PRN Q3HRS PRN IV PAIN; Start 07/27/18 at 17:15 Haloperidol Lactate (Haldol Inj) 2 mg PRN Q4HRS PRN IM AGITATION Last administered on 07/29/18at 10:12; Start 07/27/18 at 17:15 Hydralazine HCl (Apresoline Inj) 10 mg PRN Q4HRS PRN IVP give for SBP > 160; Start 07/27/18 at 17:15 Lorazepam (Ativan Inj) 1 mg PRN Q4HRS PRN IV ANXIETY / AGITATION Last administered on 07/29/18at 00:45; Start 07/27/18 at 17:15 Midazolam HCl (Versed) 5 mg STK-MED ONCE .ROUTE ; Start 07/28/18 at 11:23; Stop 07/28/18 at 11:24; Status DC Fentanyl Citrate (Fentanyl 2ml Vial) 100 mcg STK-MED ONCE .ROUTE ; Start 07/28/18 at 11:23; Stop 07/28/18 at 11:24; Status DC Ringer's Solution 1,000 ml @ 75 mls/hr [id number] IV Last administered on 07/28/18at 11:00; Start 07/28/18 at 11:30 Midazolam HCl (Versed) 5 mg STK-MED ONCE IV Last administered on 07/28/18at 11:35; Start 07/28/18 at 11:35; Stop 07/28/18 at 11:45; Status DC Fentanyl Citrate (Fentanyl 2ml Vial) 100 mcg STK-MED ONCE IV Last administered on 07/28/18at 11:35; Start 07/28/18 at 11:35; Stop 07/28/18 at 11:45; Status DC Active Scripts Active Reported [Lorazepam] 1 Mg IV Q4HRS PRN [Fentanyl] 0.25 Mcg IV Q3HRS PRN [Haldol] 2 Mg IM Q4HRS PRN [Hydralazine] 10 Mg IV Q4HRS PRN Aspirin 325 Mg Tablet 1 Tab PO DAILY Diltiazem 24HR Cd (Diltiazem Hcl) 120 Mg Cap.er.24h 2 Cap PO DAILY [clinimix e/dextrose] 50 Ml IV Nitro-Bid (Nitroglycerin) 1 Gm Oint...g. 0.5 Inch TD Q6HRS Duoneb 0.5-3(2.5) Mg/3 Ml (Albuterol/Ipratropium) 3 Ml Ampul.neb 3 Ml NEB QID Atorvastatin Calcium 40 Mg Tablet 1 Tab PO QHS Vitals/I & O Vital Sign - Last 24 Hours 07/28/18 07/28/18 07/28/18 07/28/18 11:13 11:13 11:30 11:37 Temp 97.4 97.4 Pulse 123 123 113 Resp 22 22 20 Pulse Ox 90 90 95 O2 Delivery Room Air Room Air Nasal Cannula O2 Flow Rate 2.0 3 07/28/18 07/28/18 07/28/18 07/28/18 11:40 11:40 11:55 12:05 Temp 97.3 97.3 97.3 97.3 Pulse 118 118 95 97 Resp 19 20 20 18 B/P (MAP) 132/73 139/81 141/78 Pulse Ox 95 95 98 94 O2 Delivery Nasal Cannula Nasal Cannula Nasal Cannula Room Air O2 Flow Rate 3 3 3 07/28/18 07/28/18 07/28/18 07/28/18 12:17 12:30 12:45 13:00 Temp 96.1 96.1 Pulse 100 92 92 92 Resp 18 B/P (MAP) 137/77 (97) 144/92 (109) 152/88 (109) 158/82 (107) Pulse Ox 93 O2 Delivery Room Air 07/28/18 07/28/18 07/28/18 07/28/18 13:30 14:30 15:00 15:13 Temp 97.8 97.8 Pulse 104 104 116 98 Resp 18 B/P (MAP) 176/101 (126) 189/111 (137) 187/87 (120) Pulse Ox 95 O2 Delivery Room Air 07/28/18 07/28/18 07/28/18 07/28/18 15:44 19:20 20:29 20:47 Temp 98.1 98.1 Pulse 116 Resp 21 B/P (MAP) 152/87 (108) Pulse Ox 100 95 98 O2 Delivery Room Air Room Air Room Air Room Air O2 Flow Rate 3.0 07/28/18 07/28/18 07/29/18 07/29/18 23:36 23:38 03:48 05:50 Temp 98.0 98.0 98.0 98.0 Pulse 116 109 106 106 Resp 22 26 B/P (MAP) 152/87 147/92 (110) 118/98 (105) 118/98 Pulse Ox 94 94 O2 Delivery Room Air Room Air 07/29/18 07/29/18 07/29/18 07/29/18 07:00 07:32 07:52 08:00 Temp 97.3 97.3 Pulse 106 103 Resp 22 B/P (MAP) 176/93 (120) 176/93 Pulse Ox 92 98 O2 Delivery Room Air Room Air Room Air O2 Flow Rate 3.0 07/29/18 10:13 Pulse 103 B/P (MAP) 176/93 Intake and Output 07/28/18 07/28/18 07/29/18 15:00 23:00 07:00 Intake Total 200 ml 980 ml Output Total 100 ml Balance 200 ml -100 ml 980 ml Nutrition Consultation Dietary Evaluation: Recommendations by RD: Increase Calorie Intake, Decrease Calorie Intake Comments: REC diet as able per GI and COMPUTER SYSTEMS INFORMATION DIRECTOR recommendations, goal diet cardiac w/textures and liquids per COMPUTER SYSTEMS INFORMATION DIRECTOR recomendations Ensure TID, thickened on unit to honey thick consistency Ensure pudding BID on trays Expected Outcomes/Goals: PO intake to meet >75% est needs Interpretation of weight loss: >1-2% in 1 week Malnutrition Findings: Food and Nutrition Intake (Sev: <50% est energy req 5days Body Fat Depletion (Non Severe: Mild Depletion Weight Status: Obese MICAELA MERCHANT MD Jul 29, 2018 10:54
[2018-07-29 11:00] VITALS: BP 144/83
--- NOTE | 2018-07-29 12:52 | PDOC ---
G I PROGRESS NOTE Reason for Follow-up Acute blood loss anemia Subjective Sleeping Physical Exam Lungs decreased BS CV S1 S2 ABD +BS, soft, nontender Review of Relevant I have reviewed the following items dylan (where applicable) has been applied. Labs Laboratory Tests Test 07/28/18 10:10 07/29/18 04:15 White Blood Count 16.5 x10^3/uL (4.0-11.0) 14.1 x10^3/uL (4.0-11.0) Red Blood Count 3.55 x10^6/uL (4.30-5.70) 3.09 x10^6/uL (4.30-5.70) Hemoglobin 10.1 g/dL (13.0-17.5) 8.9 g/dL (13.0-17.5) Hematocrit 31.4 % (39.0-53.0) 27.5 % (39.0-53.0) Mean Corpuscular Volume 88 fL (79-100) 89 fL (79-100) Mean Corpuscular Hemoglobin 29 pg (25-35) 29 pg (25-35) Mean Corpuscular Hemoglobin Concent 32 g/dL (31-37) 32 g/dL (31-37) Red Cell Distribution Width 15.0 % (11.5-14.5) 15.6 % (11.5-14.5) Platelet Count 378 x10^3/uL (140-400) 312 x10^3/uL (140-400) Neutrophils (%) (Auto) 85 % (31-73) 79 % (31-73) Lymphocytes (%) (Auto) 7 % (24-48) 9 % (24-48) Monocytes (%) (Auto) 6 % (0-9) 11 % (0-9) Eosinophils (%) (Auto) 1 % (0-3) 1 % (0-3) Basophils (%) (Auto) 0 % (0-3) 0 % (0-3) Neutrophils # (Auto) 14.0 x10^3uL (1.8-7.7) 11.1 x10^3uL (1.8-7.7) Lymphocytes # (Auto) 1.2 x10^3/uL (1.0-4.8) 1.3 x10^3/uL (1.0-4.8) Monocytes # (Auto) 1.0 x10^3/uL (0.0-1.1) 1.5 x10^3/uL (0.0-1.1) Eosinophils # (Auto) 0.2 x10^3/uL (0.0-0.7) 0.2 x10^3/uL (0.0-0.7) Basophils # (Auto) 0.1 x10^3/uL (0.0-0.2) 0.0 x10^3/uL (0.0-0.2) Segmented Neutrophils % 88 % (35-66) Band Neutrophils % 2 % (0-9) Lymphocytes % 6 % (24-48) Atypical Lymphocytes % (Manual) 1 % (0-0) Monocytes % 2 % (0-10) Eosinophils % 1 % (0-5) Platelet Estimate Adequate (ADEQUATE) Sodium Level 153 mmol/L (136-145) 155 mmol/L (136-145) Potassium Level 4.2 mmol/L (3.5-5.1) 3.7 mmol/L (3.5-5.1) Chloride Level 119 mmol/L (98-107) 119 mmol/L (98-107) Carbon Dioxide Level 21 mmol/L (21-32) 22 mmol/L (21-32) Anion Gap 13 (6-14) 14 (6-14) Blood Urea Nitrogen 75 mg/dL (8-26) 68 mg/dL (8-26) Creatinine 2.0 mg/dL (0.7-1.3) 2.0 mg/dL (0.7-1.3) Estimated GFR (Cockcroft-Gault) 33.5 33.5 BUN/Creatinine Ratio 38 (6-20) 34 (6-20) Glucose Level 135 mg/dL (70-99) 105 mg/dL (70-99) Calcium Level 8.7 mg/dL (8.5-10.1) 8.7 mg/dL (8.5-10.1) Total Bilirubin 0.3 mg/dL (0.2-1.0) 0.3 mg/dL (0.2-1.0) Aspartate Amino Transf (AST/SGOT) 19 U/L (15-37) 21 U/L (15-37) Alanine Aminotransferase (ALT/SGPT) 44 U/L (16-63) 48 U/L (16-63) Alkaline Phosphatase 82 U/L (46-116) 78 U/L (46-116) Total Protein 5.8 g/dL (6.4-8.2) 5.6 g/dL (6.4-8.2) Albumin 2.7 g/dL (3.4-5.0) 2.6 g/dL (3.4-5.0) Albumin/Globulin Ratio 0.9 (1.0-1.7) 0.9 (1.0-1.7) Laboratory Tests Test 07/29/18 04:15 White Blood Count 14.1 x10^3/uL (4.0-11.0) Red Blood Count 3.09 x10^6/uL (4.30-5.70) Hemoglobin 8.9 g/dL (13.0-17.5) Hematocrit 27.5 % (39.0-53.0) Mean Corpuscular Volume 89 fL (79-100) Mean Corpuscular Hemoglobin 29 pg (25-35) Mean Corpuscular Hemoglobin Concent 32 g/dL (31-37) Red Cell Distribution Width 15.6 % (11.5-14.5) Platelet Count 312 x10^3/uL (140-400) Neutrophils (%) (Auto) 79 % (31-73) Lymphocytes (%) (Auto) 9 % (24-48) Monocytes (%) (Auto) 11 % (0-9) Eosinophils (%) (Auto) 1 % (0-3) Basophils (%) (Auto) 0 % (0-3) Neutrophils # (Auto) 11.1 x10^3uL (1.8-7.7) Lymphocytes # (Auto) 1.3 x10^3/uL (1.0-4.8) Monocytes # (Auto) 1.5 x10^3/uL (0.0-1.1) Eosinophils # (Auto) 0.2 x10^3/uL (0.0-0.7) Basophils # (Auto) 0.0 x10^3/uL (0.0-0.2) Sodium Level 155 mmol/L (136-145) Potassium Level 3.7 mmol/L (3.5-5.1) Chloride Level 119 mmol/L (98-107) Carbon Dioxide Level 22 mmol/L (21-32) Anion Gap 14 (6-14) Blood Urea Nitrogen 68 mg/dL (8-26) Creatinine 2.0 mg/dL (0.7-1.3) Estimated GFR (Cockcroft-Gault) 33.5 BUN/Creatinine Ratio 34 (6-20) Glucose Level 105 mg/dL (70-99) Calcium Level 8.7 mg/dL (8.5-10.1) Total Bilirubin 0.3 mg/dL (0.2-1.0) Aspartate Amino Transf (AST/SGOT) 21 U/L (15-37) Alanine Aminotransferase (ALT/SGPT) 48 U/L (16-63) Alkaline Phosphatase 78 U/L (46-116) Total Protein 5.6 g/dL (6.4-8.2) Albumin 2.6 g/dL (3.4-5.0) Albumin/Globulin Ratio 0.9 (1.0-1.7) Medications Current Medications Pantoprazole Sodium (PROTONIX VIAL for IV PUSH) 40 mg 1X ONCE IVP Last administered on 07/27/18at 00:06; Start 07/26/18 at 23:30; Stop 07/26/18 at 23:32; Status DC Sodium Chloride 500 ml @ 500 mls/hr 1X ONCE IV Last administered on 07/26/18at 23:30; Start 07/26/18 at 23:30; Stop 07/27/18 at 00:29; Status DC Sodium Chloride 1,000 ml @ 125 mls/hr Q8H IV ; Start 07/27/18 at 01:00; Stop 07/28/18 at 00:59; Status DC Pantoprazole Sodium 80 mg/ Sodium Chloride 100 ml @ 10 mls/hr Q10H IV Last administered on 07/27/18at 12:13; Start 07/27/18 at 02:00; Stop 07/27/18 at 14:21; Status DC Sodium Chloride 1,000 ml @ 200 mls/hr 1X ONCE IV Last administered on 07/27/18 at 02:54; Start 07/27/18 at 02:00; Stop 07/27/18 at 06:59; Status DC Pantoprazole Sodium (Protonix) 40 mg BIDAC PO Last administered on 07/29/18 07:51; Start 07/27/18 at 16:30 Atorvastatin Calcium (Lipitor) 40 mg QHS PO Last administered on 07/28/18at 21 :18; Start 07/27/18 at 21:00 Albuterol/ Ipratropium (Duoneb) 3 ml RTQID NEB Last administered on 07/29/18 12:11; Start 07/27/18 at 20:00 Nitroglycerin (Nitro-Bid Oint) 0.5 inch Q6HRS TD Last administered on 07/29/18 10:13; Start 07/27/18 at 18:00 Diltiazem HCl (Cardizem 24hr Cd) 240 mg DAILY PO Last administered on 07/29/18 07:52; Start 07/28/18 at 09:00 Fentanyl Citrate (Fentanyl 2ml Vial) 25 mcg PRN Q3HRS PRN IV PAIN; Start 07/27/18 at 17:15 Haloperidol Lactate (Haldol Inj) 2 mg PRN Q4HRS PRN IM AGITATION Last administered on 07/29/18at 10:12; Start 07/27/18 at 17:15 Hydralazine HCl (Apresoline Inj) 10 mg PRN Q4HRS PRN IVP give for SBP > 160; Start 07/27/18 at 17:15 Lorazepam (Ativan Inj) 1 mg PRN Q4HRS PRN IV ANXIETY / AGITATION Last administered on 07/29/18 12:27; Start 07/27/18 at 17:15 Midazolam HCl (Versed) 5 mg STK-MED ONCE .ROUTE ; Start 07/28/18 at 11:23; Stop 07/28/18 at 11:24; Status DC Fentanyl Citrate (Fentanyl 2ml Vial) 100 mcg STK-MED ONCE .ROUTE ; Start 07/28/18 at 11:23; Stop 07/28/18 at 11:24; Status DC Ringer's Solution 1,000 ml @ 75 mls/hr [id number] IV Last administered on 07/29/18at 10:53; Start 07/28/18 at 11:30 Midazolam HCl (Versed) 5 mg STK-MED ONCE IV Last administered on 07/28/18at 11:35; Start 07/28/18 at 11:35; Stop 07/28/18 at 11:45; Status DC Fentanyl Citrate (Fentanyl 2ml Vial) 100 mcg STK-MED ONCE IV Last administered on 07/28/18at 11:35; Start 07/28/18 at 11:35; Stop 07/28/18 at 11:45; Status DC Active Scripts Active Reported [Lorazepam] 1 Mg IV Q4HRS PRN [Fentanyl] 0.25 Mcg IV Q3HRS PRN [Haldol] 2 Mg IM Q4HRS PRN [Hydralazine] 10 Mg IV Q4HRS PRN Aspirin 325 Mg Tablet 1 Tab PO DAILY Diltiazem 24HR Cd (Diltiazem Hcl) 120 Mg Cap.er.24h 2 Cap PO DAILY [clinimix e/dextrose] 50 Ml IV Nitro-Bid (Nitroglycerin) 1 Gm Oint...g. 0.5 Inch TD Q6HRS Duoneb 0.5-3(2.5) Mg/3 Ml (Albuterol/Ipratropium) 3 Ml Ampul.neb 3 Ml NEB QID Atorvastatin Calcium 40 Mg Tablet 1 Tab PO QHS Vitals/I & O Vital Sign - Last 24 Hours 07/28/18 07/28/18 07/28/18 07/28/18 13:00 13:30 14:30 15:00 Temp 97.8 97.8 Pulse 92 104 104 116 Resp 18 B/P (MAP) 158/82 (107) 176/101 (126) 189/111 (137) 187/87 (120) Pulse Ox 95 O2 Delivery Room Air 07/28/18 07/28/18 07/28/18 07/28/18 15:13 15:44 19:20 20:29 Temp 98.1 98.1 Pulse 98 116 Resp 21 B/P (MAP) 152/87 (108) Pulse Ox 100 95 O2 Delivery Room Air Room Air Room Air O2 Flow Rate 3.0 07/28/18 07/28/18 07/28/18 07/29/18 20:47 23:36 23:38 03:48 Temp 98.0 98.0 98.0 98.0 Pulse 116 109 106 Resp 22 26 B/P (MAP) 152/87 147/92 (110) 118/98 (105) Pulse Ox 98 94 94 O2 Delivery Room Air Room Air Room Air 07/29/18 07/29/18 07/29/18 07/29/18 05:50 07:00 07:32 07:52 Temp 97.3 97.3 Pulse 106 106 103 Resp 22 B/P (MAP) 118/98 176/93 (120) 176/93 Pulse Ox 92 98 O2 Delivery Room Air Room Air 07/29/18 07/29/18 07/29/18 07/29/18 08:00 10:13 11:00 12:12 Temp 97.7 97.7 Pulse 103 105 Resp 18 B/P (MAP) 176/93 144/83 (103) Pulse Ox 96 O2 Delivery Room Air Room Air Room Air O2 Flow Rate 3.0 Intake and Output 07/28/18 07/28/18 07/29/18 14:59 22:59 06:59 Intake Total 200 ml 980 ml Output Total 100 ml Balance 200 ml -100 ml 980 ml Problem List Problems Medical Problems: (1) Acute on chronic renal failure Status: Acute (2) Anemia Status: Acute (3) Anticoagulant-induced bleeding Status: Acute (4) Hypoalbuminemia Status: Acute Assessment DU- on anticoagulation, continue with PPI therapy, Hg drifting downwards, transfuse if Hg ,8, CPM LAURA RIBEIRO MD Jul 29, 2018 12:52
[2018-07-29 19:15] VITALS: BP 125/68
[2018-07-29] MEDS: ATORVASTATIN CALCIUM 40 MG TABLET. PO SCH (21:25)
[2018-07-29 23:49] VITALS: BP 156/88
[2018-07-30] VITALS (12 sets, daily range): BP systolic 126–156; BP diastolic 59–93
[2018-07-30 05:22] LABS: BASO % 0 % (0-3); EOS # 0.1 x10^3/uL (0.0-0.7); EOS % 1 % (0-3); HEMATOCRIT 23.7 % (39.0-53.0); HEMOGLOBIN 7.8 g/dL (13.0-17.5); LYMPH # 1.2 x10^3/uL (1.0-4.8); LYMPH % 8 % (24-48); MEAN CORPUSCULAR HEMOGLOBIN 30 pg (25-35); MEAN CORPUSCULAR HGB CONC 33 g/dL (31-37); MEAN CORPUSCULAR VOLUME 90 fL (79-100); MONO # 1.6 x10^3/uL (0.0-1.1); MONO % 11 % (0-9); NEUT % 80 % (31-73); PLATELET COUNT 300 x10^3/uL (140-400); RED BLOOD COUNT 2.63 x10^6/uL (4.30-5.70); RED CELL DISTRIBUTION WIDTH 15.5 % (11.5-14.5)
[2018-07-30 05:55] LABS: ALBUMIN 2.4 g/dL (3.4-5.0); ALBUMIN/GLOBULIN RATIO 0.8 (1.0-1.7); CALCIUM 8.7 mg/dL (8.5-10.1); CREATININE 1.9 mg/dL (0.7-1.3); GFR 35.5; POTASSIUM 3.9 mmol/L (3.5-5.1); TOTAL BILIRUBIN 0.2 mg/dL (0.2-1.0); TOTAL PROTEIN 5.6 g/dL (6.4-8.2)
[2018-07-30] MEDS: NITROGLYCERIN OINT 1 GM PACKET. TD SCH ×3 (06:11→17:02)
[2018-07-30] MEDS ORDERED: diphenhydrAMINE ORAL ELIXIR 12.5 MG/5 ML ML PO PRN (07:15)
[2018-07-30] MEDS ORDERED: ACETAMINOPHEN 325 MG TABLET. PO PRN (07:15)
[2018-07-30] MEDS: IPRATRPIUM/ALBUTEROL 0.5/2.5MG 3 ML NEBU. NEB SCH ×4 (07:24→20:49)
[2018-07-30] MEDS: PANTOPRAZOLE 40 MG TABLET.DR. PO SCH ×2 (08:07→17:01)
[2018-07-30 13:12] LABS: HCV ULTRA QUANT PCR HCV Not Detected IU/mL (.)
--- NOTE | 2018-07-30 13:35 | PDOC ---
PROGRESS NOTES Chief Complaint Chief Complaint A/P: Acute blood loss anemia - with his BUN elevation there is confirmed likely UGIB - EGD - non-erosive gastritis s/p bx and cratered duodenal ulcer with clean base ist portion duodenum, and with hep c history possibly has cirrhosis, transfusion today given h and h result and recommendations from gi it consultant, PPI, hold ASA, eliquis Hypernatremia - Likely from poor PO intake, patient is on a honey thick diet. Hopefully he will have an improvement in his intake over the next 24 hours. Recent Acute CVA - Area of acute ischemia/infarction is seen involving portions of the right temporal, right occipital and right frontoparietal lobes as discussed above. This is a right MCA distribution. There is mild surrounding edema without evidence of significant mass effect. was on eliquis. Continue Lipitor 40 mg HS. Hx of PAFIB - needs anticoagulation, but with GI bleeding is on hold. Cardiology to see as well. Likely will need atrial appendage closure device HTN: labile. monitor on meds HLP - cont statin CECIL on CKD stage 4 - likely vasomotor Agitation/Aggressive Behavior - on antipsychotics Weak cough - start nebs today, may need glycopyrrolate Acute/subacute right frontal, parietal, temporal and occipital lobe infarcts. 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 Amphetamine positive. Cannabinoids positive. Obesity. Hep C history - will check viral load FEN - Clear liquid diet PPX - PPI FULL CODE CVC admission for GI bleed,most likely 2/2 UGIB. - PT/OT/DRUG REGULATORY AFFAIRS SPECIALIST 37 min pt exam, chart review,> 50% of time spent with exam, chart review, pt care coordination History of Present Illness History of Present Illness Mr. Gutiérrez is a 68 year old M w/ PMHx HTN, HLD, Hep C, admitted for stroke symptoms to [facility] 07/18/18 and discharged to [facility] on 07/25/18. He last used meth prior to admit and smokes marijuana as well. He was seen by cardiology, started on heparin GTT, cardizem GTT for management for his afib, seen by neurology as well, MRI confirmed area of acute ischemia/infarction is seen involving portions of the right temporal, right occipital and right frontoparietal lobes. This is a right MCA distribution. There is mild surrounding edema without evidence of significant mass effect. He was continuing to have difficulty swallowing, GI was consulted for PEG consideration, was on PPN for nearly 1 week for nutrition. Worked with PT/OT/DRUG REGULATORY AFFAIRS SPECIALIST daily, was initially confused and agitated, however this improved over the course of 7 days, not requiring haldol and ativan. Has been tolerating ice chips per his well. Up and alert this morning, he is frustrated with his stroke symptoms. Videoswallow showed penetration with honey-thickened liquids. Discussed with he and his bedside. His cough is still very weak. Given nebs with improvement. IS and acapella flutter valve both bedside. Was discharged to [facility] on Eliquis. EGD 07/28/18 with cratered duodenal ulcer noted, PPI continued, started diet He has been very agitated and confused. Haldol has helped. Advancing diet. Hb 8.9 this morning. Sodium up to 155. Cr 2 Vitals Vitals Vital Signs Date Time Temp Pulse Resp B/P (MAP) Pulse Ox O2 Delivery O2 Flow Rate FiO2 07/30/18 12:35 Room Air 07/30/18 11:55 98.1 90 20 140/78 98.1 07/30/18 11:00 95 07/29/18 08:00 3.0 Physical Exam General: Alert, Cooperative, No acute distress Lungs: Clear, Other Abdomen: Normal bowel sounds, Soft, No tenderness, No hepatosplenomegaly, No m asses Extremities: No clubbing, No cyanosis, No edema, Normal pulses, No tenderness/swelling Skin: No rashes, No breakdown, No significant lesion Labs LABS Laboratory Tests Test 07/30/18 04:45 White Blood Count 15.0 x10^3/uL (4.0-11.0) Red Blood Count 2.63 x10^6/uL (4.30-5.70) Hemoglobin 7.8 g/dL (13.0-17.5) Hematocrit 23.7 % (39.0-53.0) Mean Corpuscular Volume 90 fL (79-100) Mean Corpuscular Hemoglobin 30 pg (25-35) Mean Corpuscular Hemoglobin Concent 33 g/dL (31-37) Red Cell Distribution Width 15.5 % (11.5-14.5) Platelet Count 300 x10^3/uL (140-400) Neutrophils (%) (Auto) 80 % (31-73) Lymphocytes (%) (Auto) 8 % (24-48) Monocytes (%) (Auto) 11 % (0-9) Eosinophils (%) (Auto) 1 % (0-3) Basophils (%) (Auto) 0 % (0-3) Neutrophils # (Auto) 12.0 x10^3uL (1.8-7.7) Lymphocytes # (Auto) 1.2 x10^3/uL (1.0-4.8) Monocytes # (Auto) 1.6 x10^3/uL (0.0-1.1) Eosinophils # (Auto) 0.1 x10^3/uL (0.0-0.7) Basophils # (Auto) 0.0 x10^3/uL (0.0-0.2) Sodium Level 157 mmol/L (136-145) Potassium Level 3.9 mmol/L (3.5-5.1) Chloride Level 120 mmol/L (98-107) Carbon Dioxide Level 23 mmol/L (21-32) Anion Gap 14 (6-14) Blood Urea Nitrogen 65 mg/dL (8-26) Creatinine 1.9 mg/dL (0.7-1.3) Estimated GFR (Cockcroft-Gault) 35.5 BUN/Creatinine Ratio 34 (6-20) Glucose Level 111 mg/dL (70-99) Calcium Level 8.7 mg/dL (8.5-10.1) Total Bilirubin 0.2 mg/dL (0.2-1.0) Aspartate Amino Transf (AST/SGOT) 28 U/L (15-37) Alanine Aminotransferase (ALT/SGPT) 56 U/L (16-63) Alkaline Phosphatase 76 U/L (46-116) Total Protein 5.6 g/dL (6.4-8.2) Albumin 2.4 g/dL (3.4-5.0) Albumin/Globulin Ratio 0.8 (1.0-1.7) Assessment and Plan Assessmemt and Plan Problems Medical Problems: (1) Acute on chronic renal failure Status: Acute (2) Anemia Status: Acute (3) Anticoagulant-induced bleeding Status: Acute (4) Hypoalbuminemia Status: Acute Comment Review of Relevant I have reviewed the following items dylan (where applicable) has been applied. Labs Laboratory Tests Test 07/29/18 04:15 07/30/18 04:45 White Blood Count 14.1 x10^3/uL (4.0-11.0) 15.0 x10^3/uL (4.0-11.0) Red Blood Count 3.09 x10^6/uL (4.30-5.70) 2.63 x10^6/uL (4.30-5.70) Hemoglobin 8.9 g/dL (13.0-17.5) 7.8 g/dL (13.0-17.5) Hematocrit 27.5 % (39.0-53.0) 23.7 % (39.0-53.0) Mean Corpuscular Volume 89 fL (79-100) 90 fL (79-100) Mean Corpuscular Hemoglobin 29 pg (25-35) 30 pg (25-35) Mean Corpuscular Hemoglobin Concent 32 g/dL (31-37) 33 g/dL (31-37) Red Cell Distribution Width 15.6 % (11.5-14.5) 15.5 % (11.5-14.5) Platelet Count 312 x10^3/uL (140-400) 300 x10^3/uL (140-400) Neutrophils (%) (Auto) 79 % (31-73) 80 % (31-73) Lymphocytes (%) (Auto) 9 % (24-48) 8 % (24-48) Monocytes (%) (Auto) 11 % (0-9) 11 % (0-9) Eosinophils (%) (Auto) 1 % (0-3) 1 % (0-3) Basophils (%) (Auto) 0 % (0-3) 0 % (0-3) Neutrophils # (Auto) 11.1 x10^3uL (1.8-7.7) 12.0 x10^3uL (1.8-7.7) Lymphocytes # (Auto) 1.3 x10^3/uL (1.0-4.8) 1.2 x10^3/uL (1.0-4.8) Monocytes # (Auto) 1.5 x10^3/uL (0.0-1.1) 1.6 x10^3/uL (0.0-1.1) Eosinophils # (Auto) 0.2 x10^3/uL (0.0-0.7) 0.1 x10^3/uL (0.0-0.7) Basophils # (Auto) 0.0 x10^3/uL (0.0-0.2) 0.0 x10^3/uL (0.0-0.2) Sodium Level 155 mmol/L (136-145) 157 mmol/L (136-145) Potassium Level 3.7 mmol/L (3.5-5.1) 3.9 mmol/L (3.5-5.1) Chloride Level 119 mmol/L (98-107) 120 mmol/L (98-107) Carbon Dioxide Level 22 mmol/L (21-32) 23 mmol/L (21-32) Anion Gap 14 (6-14) 14 (6-14) Blood Urea Nitrogen 68 mg/dL (8-26) 65 mg/dL (8-26) Creatinine 2.0 mg/dL (0.7-1.3) 1.9 mg/dL (0.7-1.3) Estimated GFR (Cockcroft-Gault) 33.5 35.5 BUN/Creatinine Ratio 34 (6-20) 34 (6-20) Glucose Level 105 mg/dL (70-99) 111 mg/dL (70-99) Calcium Level 8.7 mg/dL (8.5-10.1) 8.7 mg/dL (8.5-10.1) Total Bilirubin 0.3 mg/dL (0.2-1.0) 0.2 mg/dL (0.2-1.0) Aspartate Amino Transf (AST/SGOT) 21 U/L (15-37) 28 U/L (15-37) Alanine Aminotransferase (ALT/SGPT) 48 U/L (16-63) 56 U/L (16-63) Alkaline Phosphatase 78 U/L (46-116) 76 U/L (46-116) Total Protein 5.6 g/dL (6.4-8.2) 5.6 g/dL (6.4-8.2) Albumin 2.6 g/dL (3.4-5.0) 2.4 g/dL (3.4-5.0) Albumin/Globulin Ratio 0.9 (1.0-1.7) 0.8 (1.0-1.7) Laboratory Tests Test 07/30/18 04:45 White Blood Count 15.0 x10^3/uL (4.0-11.0) Red Blood Count 2.63 x10^6/uL (4.30-5.70) Hemoglobin 7.8 g/dL (13.0-17.5) Hematocrit 23.7 % (39.0-53.0) Mean Corpuscular Volume 90 fL (79-100) Mean Corpuscular Hemoglobin 30 pg (25-35) Mean Corpuscular Hemoglobin Concent 33 g/dL (31-37) Red Cell Distribution Width 15.5 % (11.5-14.5) Platelet Count 300 x10^3/uL (140-400) Neutrophils (%) (Auto) 80 % (31-73) Lymphocytes (%) (Auto) 8 % (24-48) Monocytes (%) (Auto) 11 % (0-9) Eosinophils (%) (Auto) 1 % (0-3) Basophils (%) (Auto) 0 % (0-3) Neutrophils # (Auto) 12.0 x10^3uL (1.8-7.7) Lymphocytes # (Auto) 1.2 x10^3/uL (1.0-4.8) Monocytes # (Auto) 1.6 x10^3/uL (0.0-1.1) Eosinophils # (Auto) 0.1 x10^3/uL (0.0-0.7) Basophils # (Auto) 0.0 x10^3/uL (0.0-0.2) Sodium Level 157 mmol/L (136-145) Potassium Level 3.9 mmol/L (3.5-5.1) Chloride Level 120 mmol/L (98-107) Carbon Dioxide Level 23 mmol/L (21-32) Anion Gap 14 (6-14) Blood Urea Nitrogen 65 mg/dL (8-26) Creatinine 1.9 mg/dL (0.7-1.3) Estimated GFR (Cockcroft-Gault) 35.5 BUN/Creatinine Ratio 34 (6-20) Glucose Level 111 mg/dL (70-99) Calcium Level 8.7 mg/dL (8.5-10.1) Total Bilirubin 0.2 mg/dL (0.2-1.0) Aspartate Amino Transf (AST/SGOT) 28 U/L (15-37) Alanine Aminotransferase (ALT/SGPT) 56 U/L (16-63) Alkaline Phosphatase 76 U/L (46-116) Total Protein 5.6 g/dL (6.4-8.2) Albumin 2.4 g/dL (3.4-5.0) Albumin/Globulin Ratio 0.8 (1.0-1.7) Medications Current Medications Pantoprazole Sodium (PROTONIX VIAL for IV PUSH) 40 mg 1X ONCE IVP Last administered on 07/27/18at 00:06; Start 07/26/18 at 23:30; Stop 07/26/18 at 23:32; Status DC Sodium Chloride 500 ml @ 500 mls/hr 1X ONCE IV Last administered on 07/26/18at 23:30; Start 07/26/18 at 23:30; Stop 07/27/18 at 00:29; Status DC Sodium Chloride 1,000 ml @ 125 mls/hr Q8H IV ; Start 07/27/18 at 01:00; Stop 07/28/18 at 00:59; Status DC Pantoprazole Sodium 80 mg/ Sodium Chloride 100 ml @ 10 mls/hr Q10H IV Last administered on 07/27/18at 12:13; Start 07/27/18 at 02:00; Stop 07/27/18 at 14:21; Status DC Sodium Chloride 1,000 ml @ 200 mls/hr 1X ONCE IV Last administered on 07/27/18at 02:54; Start 07/27/18 at 02:00; Stop 07/27/18 at 06:59; Status DC Pantoprazole Sodium (Protonix) 40 mg BIDAC PO Last administered on 07/30/18at 08:07; Start 07/27/18 at 16:30 Atorvastatin Calcium (Lipitor) 40 mg QHS PO Last administered on 07/29/18at 21:25; Start 07/27/18 at 21:00 Albuterol/ Ipratropium (Duoneb) 3 ml RTQID NEB Last administered on 07/30/18at 12:33; Start 07/27/18 at 20:00 Nitroglycerin (Nitro-Bid Oint) 0.5 inch Q6HRS TD Last administered on 07/30/18 06:11; Start 07/27/18 at 18:00 Diltiazem HCl (Cardizem 24hr Cd) 240 mg DAILY PO Last administered on 07/30/18 08:08; Start 07/28/18 at 09:00 Fentanyl Citrate (Fentanyl 2ml Vial) 25 mcg PRN Q3HRS PRN IV PAIN; Start 07/27/18 at 17:15 Haloperidol Lactate (Haldol Inj) 2 mg PRN Q4HRS PRN IM AGITATION Last admin istered on 07/29/18at 10:12; Start 07/27/18 at 17:15 Hydralazine HCl (Apresoline Inj) 10 mg PRN Q4HRS PRN IVP give for SBP > 160; Start 07/27/18 at 17:15 Lorazepam (Ativan Inj) 1 mg PRN Q4HRS PRN IV ANXIETY / AGITATION Last administered on 07/29/18 12:27; Start 07/27/18 at 17:15 Midazolam HCl (Versed) 5 mg STK-MED ONCE .ROUTE ; Start 07/28/18 at 11:23; Stop 07/28/18 at 11:24; Status DC Fentanyl Citrate (Fentanyl 2ml Vial) 100 mcg STK-MED ONCE .ROUTE ; Start 07/28/18 at 11:23; Stop 07/28/18 at 11:24; Status DC Ringer's Solution 1,000 ml @ 75 mls/hr [id number] IV Last administered on 07/29/18at 23:56; Start 07/28/18 at 11:30 Midazolam HCl (Versed) 5 mg STK-MED ONCE IV Last administered on 07/28/18at 11:35; Start 07/28/18 at 11:35; Stop 07/28/18 at 11:45; Status DC Fentanyl Citrate (Fentanyl 2ml Vial) 100 mcg STK-MED ONCE IV Last administered on 07/28/18 11:35; Start 07/28/18 at 11:35; Stop 07/28/18 at 11:45; Status DC Acetaminophen (Tylenol) 650 mg 1X PRN PRN PO PRE-TRANSFUSION Last administered on 07/30/18 10:36; Start 07/30/18 at 07:15; Stop 07/30/18 at 10:36; Status DC Diphenhydramine HCl (Benadryl Oral Elixir) 12.5 mg 1X PRN PRN PO PRE- TRANSFUSION Last administered on 07/30/18at 10:35; Start 07/30/18 at 07:15; Stop 07/30/18 at 10:36; Status DC Active Scripts Active Reported [Lorazepam] 1 Mg IV Q4HRS PRN [Fentanyl] 0.25 Mcg IV Q3HRS PRN [Haldol] 2 Mg IM Q4HRS PRN [Hydralazine] 10 Mg IV Q4HRS PRN Aspirin 325 Mg Tablet 1 Tab PO DAILY Diltiazem 24HR Cd (Diltiazem Hcl) 120 Mg Cap.er.24h 2 Cap PO DAILY [clinimix e/dextrose] 50 Ml IV Nitro-Bid (Nitroglycerin) 1 Gm Oint...g. 0.5 Inch TD Q6HRS Duoneb 0.5-3(2.5) Mg/3 Ml (Albuterol/Ipratropium) 3 Ml Ampul.neb 3 Ml NEB QID Atorvastatin Calcium 40 Mg Tablet 1 Tab PO QHS Vitals/I & O Vital Sign - Last 24 Hours 07/29/18 07/29/18 07/29/18 07/29/18 15:47 17:10 19:14 19:15 Temp 97.9 97.9 Pulse 105 94 Resp 24 B/P (MAP) 144/83 125/68 (87) Pulse Ox 93 O2 Delivery Room Air Room Air Room Air 07/29/18 07/29/18 07/29/18 07/30/18 20:40 23:49 23:49 03:00 Temp 97.7 98.0 97.7 98.0 Pulse 94 106 94 Resp 26 22 B/P (MAP) 125/68 156/88 (110) 145/89 (107) Pulse Ox 96 97 96 O2 Delivery Room Air Room Air Room Air 07/30/18 07/30/18 07/30/18 07/30/18 06:11 07:00 08:00 08:08 Temp 97.7 97.7 Pulse 94 119 119 Resp 20 B/P (MAP) 145/89 144/76 (98) 144/76 Pulse Ox 93 O2 Delivery Room Air Room Air 07/30/18 07/30/18 07/30/182/19 11:00 11:15 11:40 11:55 Temp 98.0 98.2 98.1 98.0 98.2 98.1 Pulse 106 105 104 90 Resp 20 20 20 20 B/P (MAP) 156/92 (113) 144/93 156/82 140/78 Pulse Ox 95 O2 Delivery Room Air 07/30/18 12:35 O2 Delivery Room Air Intake and Output 07/29/18 07/29/18 07/30/18 15:00 23:00 07:00 Intake Total 540 ml 1260 ml Output Total 100 ml 200 ml Balance -100 ml 540 ml 1060 ml Nutrition Consultation Dietary Evaluation: Recommendations by RD: Increase Calorie Intake, Decrease Calorie Intake Comments: REC diet as able per GI and DRUG REGULATORY AFFAIRS SPECIALIST recommendations, goal diet cardiac w/textures and liquids per DRUG REGULATORY AFFAIRS SPECIALIST recomendations Ensure TID, thickened on unit to honey thick consistency Ensure pudding BID on trays Expected Outcomes/Goals: PO intake to meet >75% est needs Interpretation of weight loss: >1-2% in 1 week Malnutrition Findings: Food and Nutrition Intake (Sev: <50% est energy req 5days Body Fat Depletion (Non Severe: Mild Depletion Weight Status: Obese ERICA JACOBO MD Jul 30, 2018 13:35
--- NOTE | 2018-07-30 13:57 | PDOC ---
G I PROGRESS NOTE Reason for Follow-up Acute blood loss anemia Subjective No further bleeding Physical Exam Lungs clear CV S1 S2 ABD +BS, soft, nontender Review of Relevant I have reviewed the following items dylan (where applicable) has been applied. Labs Laboratory Tests Test 07/29/18 04:15 07/30/18 04:45 White Blood Count 14.1 x10^3/uL (4.0-11.0) 15.0 x10^3/uL (4.0-11.0) Red Blood Count 3.09 x10^6/uL (4.30-5.70) 2.63 x10^6/uL (4.30-5.70) Hemoglobin 8.9 g/dL (13.0-17.5) 7.8 g/dL (13.0-17.5) Hematocrit 27.5 % (39.0-53.0) 23.7 % (39.0-53.0) Mean Corpuscular Volume 89 fL (79-100) 90 fL (79-100) Mean Corpuscular Hemoglobin 29 pg (25-35) 30 pg (25-35) Mean Corpuscular Hemoglobin Concent 32 g/dL (31-37) 33 g/dL (31-37) Red Cell Distribution Width 15.6 % (11.5-14.5) 15.5 % (11.5-14.5) Platelet Count 312 x10^3/uL (140-400) 300 x10^3/uL (140-400) Neutrophils (%) (Auto) 79 % (31-73) 80 % (31-73) Lymphocytes (%) (Auto) 9 % (24-48) 8 % (24-48) Monocytes (%) (Auto) 11 % (0-9) 11 % (0-9) Eosinophils (%) (Auto) 1 % (0-3) 1 % (0-3) Basophils (%) (Auto) 0 % (0-3) 0 % (0-3) Neutrophils # (Auto) 11.1 x10^3uL (1.8-7.7) 12.0 x10^3uL (1.8-7.7) Lymphocytes # (Auto) 1.3 x10^3/uL (1.0-4.8) 1.2 x10^3/uL (1.0-4.8) Monocytes # (Auto) 1.5 x10^3/uL (0.0-1.1) 1.6 x10^3/uL (0.0-1.1) Eosinophils # (Auto) 0.2 x10^3/uL (0.0-0.7) 0.1 x10^3/uL (0.0-0.7) Basophils # (Auto) 0.0 x10^3/uL (0.0-0.2) 0.0 x10^3/uL (0.0-0.2) Sodium Level 155 mmol/L (136-145) 157 mmol/L (136-145) Potassium Level 3.7 mmol/L (3.5-5.1) 3.9 mmol/L (3.5-5.1) Chloride Level 119 mmol/L (98-107) 120 mmol/L (98-107) Carbon Dioxide Level 22 mmol/L (21-32) 23 mmol/L (21-32) Anion Gap 14 (6-14) 14 (6-14) Blood Urea Nitrogen 68 mg/dL (8-26) 65 mg/dL (8-26) Creatinine 2.0 mg/dL (0.7-1.3) 1.9 mg/dL (0.7-1.3) Estimated GFR (Cockcroft-Gault) 33.5 35.5 BUN/Creatinine Ratio 34 (6-20) 34 (6-20) Glucose Level 105 mg/dL (70-99) 111 mg/dL (70-99) Calcium Level 8.7 mg/dL (8.5-10.1) 8.7 mg/dL (8.5-10.1) Total Bilirubin 0.3 mg/dL (0.2-1.0) 0.2 mg/dL (0.2-1.0) Aspartate Amino Transf (AST/SGOT) 21 U/L (15-37) 28 U/L (15-37) Alanine Aminotransferase (ALT/SGPT) 48 U/L (16-63) 56 U/L (16-63) Alkaline Phosphatase 78 U/L (46-116) 76 U/L (46-116) Total Protein 5.6 g/dL (6.4-8.2) 5.6 g/dL (6.4-8.2) Albumin 2.6 g/dL (3.4-5.0) 2.4 g/dL (3.4-5.0) Albumin/Globulin Ratio 0.9 (1.0-1.7) 0.8 (1.0-1.7) Laboratory Tests Test 07/30/18 04:45 White Blood Count 15.0 x10^3/uL (4.0-11.0) Red Blood Count 2.63 x10^6/uL (4.30-5.70) Hemoglobin 7.8 g/dL (13.0-17.5) Hematocrit 23.7 % (39.0-53.0) Mean Corpuscular Volume 90 fL (79-100) Mean Corpuscular Hemoglobin 30 pg (25-35) Mean Corpuscular Hemoglobin Concent 33 g/dL (31-37) Red Cell Distribution Width 15.5 % (11.5-14.5) Platelet Count 300 x10^3/uL (140-400) Neutrophils (%) (Auto) 80 % (31-73) Lymphocytes (%) (Auto) 8 % (24-48) Monocytes (%) (Auto) 11 % (0-9) Eosinophils (%) (Auto) 1 % (0-3) Basophils (%) (Auto) 0 % (0-3) Neutrophils # (Auto) 12.0 x10^3uL (1.8-7.7) Lymphocytes # (Auto) 1.2 x10^3/uL (1.0-4.8) Monocytes # (Auto) 1.6 x10^3/uL (0.0-1.1) Eosinophils # (Auto) 0.1 x10^3/uL (0.0-0.7) Basophils # (Auto) 0.0 x10^3/uL (0.0-0.2) Sodium Level 157 mmol/L (136-145) Potassium Level 3.9 mmol/L (3.5-5.1) Chloride Level 120 mmol/L (98-107) Carbon Dioxide Level 23 mmol/L (21-32) Anion Gap 14 (6-14) Blood Urea Nitrogen 65 mg/dL (8-26) Creatinine 1.9 mg/dL (0.7-1.3) Estimated GFR (Cockcroft-Gault) 35.5 BUN/Creatinine Ratio 34 (6-20) Glucose Level 111 mg/dL (70-99) Calcium Level 8.7 mg/dL (8.5-10.1) Total Bilirubin 0.2 mg/dL (0.2-1.0) Aspartate Amino Transf (AST/SGOT) 28 U/L (15-37) Alanine Aminotransferase (ALT/SGPT) 56 U/L (16-63) Alkaline Phosphatase 76 U/L (46-116) Total Protein 5.6 g/dL (6.4-8.2) Albumin 2.4 g/dL (3.4-5.0) Albumin/Globulin Ratio 0.8 (1.0-1.7) Medications Current Medications Pantoprazole Sodium (PROTONIX VIAL for IV PUSH) 40 mg 1X ONCE IVP Last administered on 07/27/18at 00:06; Start 07/26/18 at 23:30; Stop 07/26/18 at 23: 32; Status DC Sodium Chloride 500 ml @ 500 mls/hr 1X ONCE IV Last administered on 07/26/18at 23:30; Start 07/26/18 at 23:30; Stop 07/27/18 at 00:29; Status DC Sodium Chloride 1,000 ml @ 125 mls/hr Q8H IV ; Start 07/27/18 at 01:00; Stop 07/28/18 at 00:59; Status DC Pantoprazole Sodium 80 mg/ Sodium Chloride 100 ml @ 10 mls/hr Q10H IV Last administered on 07/27/18at 12:13; Start 07/27/18 at 02:00; Stop 07/27/18 at 14:21; Status DC Sodium Chloride 1,000 ml @ 200 mls/hr 1X ONCE IV Last administered on 07/27/18at 02:54; Start 07/27/18 at 02:00; Stop 07/27/18 at 06:59; Status DC Pantoprazole Sodium (Protonix) 40 mg BIDAC PO Last administered on 07/30/18at 08:07; Start 07/27/18 at 16:30 Atorvastatin Calcium (Lipitor) 40 mg QHS PO Last administered on 07/29/18at 21:25; Start 07/27/18 at 21:00 Albuterol/ Ipratropium (Duoneb) 3 ml RTQID NEB Last administered on 07/30/18 12:33; Start 07/27/18 at 20:00 Nitroglycerin (Nitro-Bid Oint) 0.5 inch Q6HRS TD Last administered on 07/30/18 06:11; Start 07/27/18 at 18:00 Diltiazem HCl (Cardizem 24hr Cd) 240 mg DAILY PO Last administered on 07/30/18at 08:08; Start 07/28/18 at 09:00 Fentanyl Citrate (Fentanyl 2ml Vial) 25 mcg PRN Q3HRS PRN IV PAIN; Start 07/27/18 at 17:15 Haloperidol Lactate (Haldol Inj) 2 mg PRN Q4HRS PRN IM AGITATION Last administered on 07/29/18 10:12; Start 07/27/18 at 17:15 Hydralazine HCl (Apresoline Inj) 10 mg PRN Q4HRS PRN IVP give for SBP > 160; Start 07/27/18 at 17:15 Lorazepam (Ativan Inj) 1 mg PRN Q4HRS PRN IV ANXIETY / AGITATION Last administ ered on 07/29/18at 12:27; Start 07/27/18 at 17:15 Midazolam HCl (Versed) 5 mg STK-MED ONCE .ROUTE ; Start 07/28/18 at 11:23; Stop 07/28/18 at 11:24; Status DC Fentanyl Citrate (Fentanyl 2ml Vial) 100 mcg STK-MED ONCE .ROUTE ; Start 07/28/18 at 11:23; Stop 07/28/18 at 11:24; Status DC Ringer's Solution 1,000 ml @ 75 mls/hr [id number] IV Last administered on 07/29/18at 23:56; Start 07/28/18 at 11:30 Midazolam HCl (Versed) 5 mg STK-MED ONCE IV Last administered on 07/28/18at 11:35; Start 07/28/18 at 11:35; Stop 07/28/18 at 11:45; Status DC Fentanyl Citrate (Fentanyl 2ml Vial) 100 mcg STK-MED ONCE IV Last administered on 07/28/18at 11:35; Start 07/28/18 at 11:35; Stop 07/28/18 at 11:45; Status DC Acetaminophen (Tylenol) 650 mg 1X PRN PRN PO PRE-TRANSFUSION Last administered on 07/30/18at 10:36; Start 07/30/18 at 07:15; Stop 07/30/18 at 10:36; Status DC Diphenhydramine HCl (Benadryl Oral Elixir) 12.5 mg 1X PRN PRN PO PRE- TRANSFUSION Last administered on 07/30/18at 10:35; Start 07/30/18 at 07:15; Stop 07/30/18 at 10:36; Status DC Active Scripts Active Reported [Lorazepam] 1 Mg IV Q4HRS PRN [Fentanyl] 0.25 Mcg IV Q3HRS PRN [Haldol] 2 Mg IM Q4HRS PRN [Hydralazine] 10 Mg IV Q4HRS PRN Aspirin 325 Mg Tablet 1 Tab PO DAILY Diltiazem 24HR Cd (Diltiazem Hcl) 120 Mg Cap.er.24h 2 Cap PO DAILY [clinimix e/dextrose] 50 Ml IV Nitro-Bid (Nitroglycerin) 1 Gm Oint...g. 0.5 Inch TD Q6HRS Duoneb 0.5-3(2.5) Mg/3 Ml (Albuterol/Ipratropium) 3 Ml Ampul.neb 3 Ml NEB QID Atorvastatin Calcium 40 Mg Tablet 1 Tab PO QHS Vitals/I & O Vital Sign - Last 24 Hours 07/29/18 07/29/18 07/29/18 07/29/18 15:47 17:10 19:14 19:15 Temp 97.9 97.9 Pulse 105 94 Resp 24 B/P (MAP) 144/83 125/68 (87) Pulse Ox 93 O2 Delivery Room Air Room Air Room Air 07/29/18 07/29/18 07/29/18 07/30/18 20:40 23:49 23:49 03:00 Temp 97.7 98.0 97.7 98.0 Pulse 94 106 94 Resp 26 22 B/P (MAP) 125/68 156/88 (110) 145/89 (107) Pulse Ox 96 97 96 O2 Delivery Room Air Room Air Room Air 07/30/18 07/30/18 07/30/18 07/30/18 06:11 07:00 08:00 08:08 Temp 97.7 97.7 Pulse 94 119 119 Resp 20 B/P (MAP) 145/89 144/76 (98) 144/76 Pulse Ox 93 O2 Delivery Room Air Room Air 07/30/18 07/30/18 07/30/18 07/30/18 11:00 11:15 11:40 11:55 Temp 98.0 98.2 98.1 98.0 98.2 98.1 Pulse 106 105 104 90 Resp 20 20 20 20 B/P (MAP) 156/92 (113) 144/93 156/82 140/78 Pulse Ox 95 O2 Delivery Room Air 07/30/18 12:35 O2 Delivery Room Air Intake and Output 07/29/18 07/29/18 07/30/18 15:00 23:00 07:00 Intake Total 540 ml 1260 ml Output Total 100 ml 200 ml Balance -100 ml 540 ml 1060 ml Problem List Problems Medical Problems: (1) Acute on chronic renal failure Status: Acute (2) Anemia Status: Acute (3) Anticoagulant-induced bleeding Status: Acute (4) Hypoalbuminemia Status: Acute Assessment Acute blood loss anemia- with DU, on PPI therapy, transfusion in progress , advance diet once cleared with speech pathology LAURA RIBEIRO MD Jul 30, 2018 13:57
[2018-07-30] MEDS: IV RINGERS,LACTATED 1000ML 1,000 ML IV SCH (17:10)
[2018-07-30 18:01] LABS: HEMATOCRIT 24.6 % (39.0-53.0); RED BLOOD COUNT 2.76 x10^6/uL (4.30-5.70); RED CELL DISTRIBUTION WIDTH 15.5 % (11.5-14.5); WHITE BLOOD COUNT 13.2 x10^3/uL (4.0-11.0)
[2018-07-30] MEDS: ATORVASTATIN CALCIUM 40 MG TABLET. PO SCH (20:42)
[2018-07-31] MEDS: NITROGLYCERIN OINT 1 GM PACKET. TD SCH ×4 (00:54→18:00)
[2018-07-31 03:42] VITALS: BP 149/94
[2018-07-31] MEDS: IV RINGERS,LACTATED 1000ML 1,000 ML IV SCH (06:00)
[2018-07-31 06:27] LABS: BASO % 0 % (0-3); EOS # 0.2 x10^3/uL (0.0-0.7); EOS % 1 % (0-3); HEMATOCRIT 24.8 % (39.0-53.0); HEMOGLOBIN 8.2 g/dL (13.0-17.5); LYMPH # 1.2 x10^3/uL (1.0-4.8); LYMPH % 9 % (24-48); MEAN CORPUSCULAR HEMOGLOBIN 29 pg (25-35); MEAN CORPUSCULAR HGB CONC 33 g/dL (31-37); MEAN CORPUSCULAR VOLUME 89 fL (79-100); MONO # 1.1 x10^3/uL (0.0-1.1); MONO % 8 % (0-9); NEUT # 11.2 x10^3uL (1.8-7.7); NEUT % 82 % (31-73); PLATELET COUNT 299 x10^3/uL (140-400); RED CELL DISTRIBUTION WIDTH 16.4 % (11.5-14.5); WHITE BLOOD COUNT 13.8 x10^3/uL (4.0-11.0)
[2018-07-31 06:34] LABS: ALBUMIN 2.3 g/dL (3.4-5.0); ALBUMIN/GLOBULIN RATIO 0.7 (1.0-1.7); CALCIUM 8.3 mg/dL (8.5-10.1); CREATININE 1.6 mg/dL (0.7-1.3); GFR 43.3; POTASSIUM 3.7 mmol/L (3.5-5.1); TOTAL BILIRUBIN 0.4 mg/dL (0.2-1.0); TOTAL PROTEIN 5.6 g/dL (6.4-8.2)
[2018-07-31 07:00] VITALS: BP 138/89
[2018-07-31] MEDS: IPRATRPIUM/ALBUTEROL 0.5/2.5MG 3 ML NEBU. NEB SCH ×4 (07:36→20:16)
[2018-07-31] MEDS: PANTOPRAZOLE 40 MG TABLET.DR. PO SCH ×2 (08:04→17:25)
--- NOTE | 2018-07-31 08:10 | PDOC ---
PROGRESS NOTES Chief Complaint Chief Complaint A/P: Acute blood loss anemia - with his BUN elevation there is confirmed likely UGIB - EGD - non-erosive gastritis s/p bx and cratered duodenal ulcer with clean base ist portion duodenum, and with hep c history possibly has cirrhosis, transfusion today given h and h result and recommendations from gi personal consultant, PPI, hold ASA, eliquis Hypernatremia - Likely from poor PO intake, patient is on a honey thick diet. Hopefully he will have an improvement in his intake over the next 24 hours. Recent Acute CVA - Area of acute ischemia/infarction is seen involving portions of the right temporal, right occipital and right frontoparietal lobes as discussed above. This is a right MCA distribution. There is mild surrounding edema without evidence of significant mass effect. was on eliquis. Continue Lipitor 40 mg HS. Hx of PAFIB - needs anticoagulation, but with GI bleeding is on hold. Cardiology to see as well. Likely will need atrial appendage closure device HTN: labile. monitor on meds HLP - cont statin CECIL on CKD stage 4 - likely vasomotor Agitation/Aggressive Behavior - on antipsychotics Weak cough - start nebs today, may need glycopyrrolate Acute/subacute right frontal, parietal, temporal and occipital lobe infarcts. 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 Amphetamine positive. Cannabinoids positive. Obesity. Hep C history - will check viral load FEN - Clear liquid diet PPX - PPI FULL CODE CVC admission for GI bleed,most likely 2/2 UGIB. - PT/OT/STOCK CHECKER 37 min pt exam, chart review,> 50% of time spent with exam, chart review, pt care coordination History of Present Illness History of Present Illness Mr. Gutiérrez is a 68 year old M w/ PMHx HTN, HLD, Hep C, admitted for stroke symptoms to [facility] 07/18/18 and discharged to [facility] on 07/25/18. He last used meth prior to admit and smokes marijuana as well. He was seen by cardiology, started on heparin GTT, cardizem GTT for management for his afib, seen by neurology as well, MRI confirmed area of acute ischemia/infarction is seen involving portions of the right temporal, right occipital and right frontoparietal lobes. This is a right MCA distribution. There is mild surrounding edema without evidence of significant mass effect. He was continuing to have difficulty swallowing, GI was consulted for PEG consideration, was on PPN for nearly 1 week for nutrition. Worked with PT/OT/STOCK CHECKER daily, was initially confused and agitated, however this improved over the course of 7 days, not requiring haldol and ativan. Has been tolerating ice chips per his well. Up and alert this morning, he is frustrated with his stroke symptoms. Videoswallow showed penetration with honey-thickened liquids. Discussed with he and his bedside. His cough is still very weak. Given nebs with improvement. IS and acapella flutter valve both bedside. Was discharged to [facility] on Eliquis. EGD 07/28/18 with cratered duodenal ulcer noted, PPI continued, started diet He has been very agitated and confused. Haldol has helped. Advancing diet. Hb 8.2 this morning. Sodium up to 155 (peaked at 157). Cr down to 1.6 Refer to [facility] to return Vitals Vitals Vital Signs Date Time Temp Pulse Resp B/P (MAP) Pulse Ox O2 Delivery O2 Flow Rate FiO2 07/31/18 07:37 99 Room Air 07/31/18 07:00 98.6 106 16 138/89 (105) 98.6 Physical Exam General: Alert, Cooperative, No acute distress Lungs: Clear, Other Abdomen: Normal bowel sounds, Soft, No tenderness, No hepatosplenomegaly, No masses Extremities: No clubbing, No cyanosis, No edema, Normal pulses, No tenderness/swelling Skin: No rashes, No breakdown, No significant lesion Labs LABS Laboratory Tests Test 07/30/18 17:40 07/31/18 05:20 White Blood Count 13.2 x10^3/uL (4.0-11.0) 13.8 x10^3/uL (4.0-11.0) Red Blood Count 2.76 x10^6/uL (4.30-5.70) 2.80 x10^6/uL (4.30-5.70) Hemoglobin 8.0 g/dL (13.0-17.5) 8.2 g/dL (13.0-17.5) Hematocrit 24.6 % (39.0-53.0) 24.8 % (39.0-53.0) Mean Corpuscular Volume 89 fL (79-100) 89 fL (79-100) Mean Corpuscular Hemoglobin 29 pg (25-35) 29 pg (25-35) Mean Corpuscular Hemoglobin Concent 33 g/dL (31-37) 33 g/dL (31-37) Red Cell Distribution Width 15.5 % (11.5-14.5) 16.4 % (11.5-14.5) Platelet Count 281 x10^3/uL (140-400) 299 x10^3/uL (140-400) Neutrophils (%) (Auto) 82 % (31-73) Lymphocytes (%) (Auto) 9 % (24-48) Monocytes (%) (Auto) 8 % (0-9) Eosinophils (%) (Auto) 1 % (0-3) Basophils (%) (Auto) 0 % (0-3) Neutrophils # (Auto) 11.2 x10^3uL (1.8-7.7) Lymphocytes # (Auto) 1.2 x10^3/uL (1.0-4.8) Monocytes # (Auto) 1.1 x10^3/uL (0.0-1.1) Eosinophils # (Auto) 0.2 x10^3/uL (0.0-0.7) Basophils # (Auto) 0.0 x10^3/uL (0.0-0.2) Sodium Level 155 mmol/L (136-145) Potassium Level 3.7 mmol/L (3.5-5.1) Chloride Level 118 mmol/L (98-107) Carbon Dioxide Level 25 mmol/L (21-32) Anion Gap 12 (6-14) Blood Urea Nitrogen 42 mg/dL (8-26) Creatinine 1.6 mg/dL (0.7-1.3) Estimated GFR (Cockcroft-Gault) 43.3 BUN/Creatinine Ratio 26 (6-20) Glucose Level 114 mg/dL (70-99) Calcium Level 8.3 mg/dL (8.5-10.1) Total Bilirubin 0.4 mg/dL (0.2-1.0) Aspartate Amino Transf (AST/SGOT) 48 U/L (15-37) Alanine Aminotransferase (ALT/SGPT) 96 U/L (16-63) Alkaline Phosphatase 79 U/L (46-116) Total Protein 5.6 g/dL (6.4-8.2) Albumin 2.3 g/dL (3.4-5.0) Albumin/Globulin Ratio 0.7 (1.0-1.7) Assessment and Plan Assessmemt and Plan Problems Medical Problems: (1) Acute on chronic renal failure Status: Acute (2) Anemia Status: Acute (3) Anticoagulant-induced bleeding Status: Acute (4) Hypoalbuminemia Status: Acute Comment Review of Relevant I have reviewed the following items dylan (where applicable) has been applied. Labs Laboratory Tests Test 07/30/18 04:45 07/30/18 17:40 07/31/18 05:20 White Blood Count 15.0 x10^3/uL (4.0-11.0) 13.2 x10^3/uL (4.0-11.0) 13.8 x10^3/uL (4.0-11.0) Red Blood Count 2.63 x10^6/uL (4.30-5.70) 2.76 x10^6/uL (4.30-5.70) 2.80 x10^6/uL (4.30-5.70) Hemoglobin 7.8 g/dL (13.0-17.5) 8.0 g/dL (13.0-17.5) 8.2 g/dL (13.0-17.5) Hematocrit 23.7 % (39.0-53.0) 24.6 % (39.0-53.0) 24.8 % (39.0-53.0) Mean Corpuscular Volume 90 fL (79-100) 89 fL (79-100) 89 fL (79-100) Mean Corpuscular Hemoglobin 30 pg (25-35) 29 pg (25-35) 29 pg (25-35) Mean Corpuscular Hemoglobin Concent 33 g/dL (31-37) 33 g/dL (31-37) 33 g/dL (31-37) Red Cell Distribution Width 15.5 % (11.5-14.5) 15.5 % (11.5-14.5) 16.4 % (11.5-14.5) Platelet Count 300 x10^3/uL (140-400) 281 x10^3/uL (140-400) 299 x10^3/uL (140-400) Neutrophils (%) (Auto) 80 % (31-73) 82 % (31-73) Lymphocytes (%) (Auto) 8 % (24-48) 9 % (24-48) Monocytes (%) (Auto) 11 % (0-9) 8 % (0-9) Eosinophils (%) (Auto) 1 % (0-3) 1 % (0-3) Basophils (%) (Auto) 0 % (0-3) 0 % (0-3) Neutrophils # (Auto) 12.0 x10^3uL (1.8-7.7) 11.2 x10^3uL (1.8-7.7) Lymphocytes # (Auto) 1.2 x10^3/uL (1.0-4.8) 1.2 x10^3/uL (1.0-4.8) Monocytes # (Auto) 1.6 x10^3/uL (0.0-1.1) 1.1 x10^3/uL (0.0-1.1) Eosinophils # (Auto) 0.1 x10^3/uL (0.0-0.7) 0.2 x10^3/uL (0.0-0.7) Basophils # (Auto) 0.0 x10^3/uL (0.0-0.2) 0.0 x10^3/uL (0.0-0.2) Sodium Level 157 mmol/L (136-145) 155 mmol/L (136-145) Potassium Level 3.9 mmol/L (3.5-5.1) 3.7 mmol/L (3.5-5.1) Chloride Level 120 mmol/L (98-107) 118 mmol/L (98-107) Carbon Dioxide Level 23 mmol/L (21-32) 25 mmol/L (21-32) Anion Gap 14 (6-14) 12 (6-14) Blood Urea Nitrogen 65 mg/dL (8-26) 42 mg/dL (8-26) Creatinine 1.9 mg/dL (0.7-1.3) 1.6 mg/dL (0.7-1.3) Estimated GFR (Cockcroft-Gault) 35.5 43.3 BUN/Creatinine Ratio 34 (6-20) 26 (6-20) Glucose Level 111 mg/dL (70-99) 114 mg/dL (70-99) Calcium Level 8.7 mg/dL (8.5-10.1) 8.3 mg/dL (8.5-10.1) Total Bilirubin 0.2 mg/dL (0.2-1.0) 0.4 mg/dL (0.2-1.0) Aspartate Amino Transf (AST/SGOT) 28 U/L (15-37) 48 U/L (15-37) Alanine Aminotransferase (ALT/SGPT) 56 U/L (16-63) 96 U/L (16-63) Alkaline Phosphatase 76 U/L (46-116) 79 U/L (46-116) Total Protein 5.6 g/dL (6.4-8.2) 5.6 g/dL (6.4-8.2) Albumin 2.4 g/dL (3.4-5.0) 2.3 g/dL (3.4-5.0) Albumin/Globulin Ratio 0.8 (1.0-1.7) 0.7 (1.0-1.7) Laboratory Tests Test 07/30/18 17:40 07/31/18 05:20 White Blood Count 13.2 x10^3/uL (4.0-11.0) 13.8 x10^3/uL (4.0-11.0) Red Blood Count 2.76 x10^6/uL (4.30-5.70) 2.80 x10^6/uL (4.30-5.70) Hemoglobin 8.0 g/dL (13.0-17.5) 8.2 g/dL (13.0-17.5) Hematocrit 24.6 % (39.0-53.0) 24.8 % (39.0-53.0) Mean Corpuscular Volume 89 fL (79-100) 89 fL (79-100) Mean Corpuscular Hemoglobin 29 pg (25-35) 29 pg (25-35) Mean Corpuscular Hemoglobin Concent 33 g/dL (31-37) 33 g/dL (31-37) Red Cell Distribution Width 15.5 % (11.5-14.5) 16.4 % (11.5-14.5) Platelet Count 281 x10^3/uL (140-400) 299 x10^3/uL (140-400) Neutrophils (%) (Auto) 82 % (31-73) Lymphocytes (%) (Auto) 9 % (24-48) Monocytes (%) (Auto) 8 % (0-9) Eosinophils (%) (Auto) 1 % (0-3) Basophils (%) (Auto) 0 % (0-3) Neutrophils # (Auto) 11.2 x10^3uL (1.8-7.7) Lymphocytes # (Auto) 1.2 x10^3/uL (1.0-4.8) Monocytes # (Auto) 1.1 x10^3/uL (0.0-1.1) Eosinophils # (Auto) 0.2 x10^3/uL (0.0-0.7) Basophils # (Auto) 0.0 x10^3/uL (0.0-0.2) Sodium Level 155 mmol/L (136-145) Potassium Level 3.7 mmol/L (3.5-5.1) Chloride Level 118 mmol/L (98-107) Carbon Dioxide Level 25 mmol/L (21-32) Anion Gap 12 (6-14) Blood Urea Nitrogen 42 mg/dL (8-26) Creatinine 1.6 mg/dL (0.7-1.3) Estimated GFR (Cockcroft-Gault) 43.3 BUN/Creatinine Ratio 26 (6-20) Glucose Level 114 mg/dL (70-99) Calcium Level 8.3 mg/dL (8.5-10.1) Total Bilirubin 0.4 mg/dL (0.2-1.0) Aspartate Amino Transf (AST/SGOT) 48 U/L (15-37) Alanine Aminotransferase (ALT/SGPT) 96 U/L (16-63) Alkaline Phosphatase 79 U/L (46-116) Total Protein 5.6 g/dL (6.4-8.2) Albumin 2.3 g/dL (3.4-5.0) Albumin/Globulin Ratio 0.7 (1.0-1.7) Medications Current Medications Pantoprazole Sodium (PROTONIX VIAL for IV PUSH) 40 mg 1X ONCE IVP Last administered on 07/27/18at 00:06; Start 07/26/18 at 23:30; Stop 07/26/18 at 23:32; Status DC Sodium Chloride 500 ml @ 500 mls/hr 1X ONCE IV Last administered on 07/26/18at 23:30; Start 07/26/18 at 23:30; Stop 07/27/18 at 00:29; Status DC Sodium Chloride 1,000 ml @ 125 mls/hr Q8H IV ; Start 07/27/18 at 01:00; Stop 07/28/18 at 00:59; Status DC Pantoprazole Sodium 80 mg/ Sodium Chloride 100 ml @ 10 mls/hr Q10H IV Last administered on 07/27/18at 12:13; Start 07/27/18 at 02:00; Stop 07/27/18 at 14:21; Status DC Sodium Chloride 1,000 ml @ 200 mls/hr 1X ONCE IV Last administered on 07/27/18at 02:54; Start 07/27/18 at 02:00; Stop 07/27/18 at 06:59; Status DC Pantoprazole Sodium (Protonix) 40 mg BIDAC PO Last administered on 07/31/18at 08:04; Start 07/27/18 at 16:30 Atorvastatin Calcium (Lipitor) 40 mg QHS PO Last administered on 07/30/18at 20:42; Start 07/27/18 at 21:00 Albuterol/ Ipratropium (Duoneb) 3 ml RTQID NEB Last administered on 07/31/18at 07:36; Start 07/27/18 at 20:00 Nitroglycerin (Nitro-Bid Oint) 0.5 inch Q6HRS TD Last administered on 07/31/18at 00:54; Start 07/27/18 at 18:00 Diltiazem HCl (Cardizem 24hr Cd) 240 mg DAILY PO Last administered on 07/30/18at 08:08; Start 07/28/18 at 09:00 Fentanyl Citrate (Fentanyl 2ml Vial) 25 mcg PRN Q3HRS PRN IV PAIN; Start 07/27 at 17:15 Haloperidol Lactate (Haldol Inj) 2 mg PRN Q4HRS PRN IM AGITATION Last administered on 07/29/18at 10:12; Start 07/27/18 at 17:15 Hydralazine HCl (Apresoline Inj) 10 mg PRN Q4HRS PRN IVP give for SBP > 160; Start 07/27/18 at 17:15 Lorazepam (Ativan Inj) 1 mg PRN Q4HRS PRN IV ANXIETY / AGITATION Last administered on 07/31/18at 05:46; Start 07/27/18 at 17:15 Midazolam HCl (Versed) 5 mg STK-MED ONCE .ROUTE ; Start 07/28/18 at 11:23; Stop 07/28/18 at 11:24; Status DC Fentanyl Citrate (Fentanyl 2ml Vial) 100 mcg STK-MED ONCE .ROUTE ; Start 07/28/18 at 11:23; Stop 07/28/18 at 11:24; Status DC Ringer's Solution 1,000 ml @ 75 mls/hr [id number] IV Last administered on 07/31/18at 06:00; Start 07/28/18 at 11:30 Midazolam HCl (Versed) 5 mg STK-MED ONCE IV Last administered on 07/28/18at 11:35; Start 07/28/18 at 11:35; Stop 07/28/18 at 11:45; Status DC Fentanyl Citrate (Fentanyl 2ml Vial) 100 mcg STK-MED ONCE IV Last administered on 07/28/18at 11:35; Start 07/28/18 at 11:35; Stop 07/28/18 at 11:45; Status DC Acetaminophen (Tylenol) 650 mg 1X PRN PRN PO PRE-TRANSFUSION Last administered on 07/30/18at 10:36; Start 07/30/18 at 07:15; Stop 07/30/18 at 10:36; Status DC Diphenhydramine HCl (Benadryl Oral Elixir) 12.5 mg 1X PRN PRN PO PRE- TRANSFUSION Last administered on 07/30/18at 10:35; Start 07/30/18 at 07:15; Stop 07/30/18 at 10:36; Status DC Active Scripts Active Reported [Lorazepam] 1 Mg IV Q4HRS PRN [Fentanyl] 0.25 Mcg IV Q3HRS PRN [Haldol] 2 Mg IM Q4HRS PRN [Hydralazine] 10 Mg IV Q4HRS PRN Aspirin 325 Mg Tablet 1 Tab PO DAILY Diltiazem 24HR Cd (Diltiazem Hcl) 120 Mg Cap.er.24h 2 Cap PO DAILY [clinimix e/dextrose] 50 Ml IV Nitro-Bid (Nitroglycerin) 1 Gm Oint...g. 0.5 Inch TD Q6HRS Duoneb 0.5-3(2.5) Mg/3 Ml (Albuterol/Ipratropium) 3 Ml Ampul.neb 3 Ml NEB QID Atorvastatin Calcium 40 Mg Tablet 1 Tab PO QHS Vitals/I & O Vital Sign - Last 24 Hours 07/30/18 07/30/18 07/30/18 07/30/18 11:00 11:15 11:40 11:55 Temp 98.0 98.2 98.1 98.0 98.2 98.1 Pulse 106 105 104 90 Resp 20 20 20 20 B/P (MAP) 156/92 (113) 144/93 156/82 140/78 Pulse Ox 95 O2 Delivery Room Air 07/30/18 07/30/18 07/30/18 07/30/18 12:35 12:55 14:00 15:00 Temp 97.1 98.1 97.8 97.1 98.1 97.8 Pulse 104 96 89 Resp 20 B/P (MAP) 137/86 131/62 126/77 (93) Pulse Ox 95 O2 Delivery Room Air Room Air 07/30/18 07/30/18 07/30/18 07/30/18 15:00 16:00 16:12 17:02 Temp 97.9 97.9 97.9 97.9 Pulse 94 96 98 Resp 20 B/P (MAP) 138/72 127/59 127/59 Pulse Ox 95 O2 Delivery Room Air 07/30/18 07/30/18 07/30/18 07/30/18 19:00 19:41 20:50 23:00 Temp 98.8 99.2 98.8 99.2 Pulse 70 105 Resp 20 20 B/P (MAP) 130/64 (86) 134/69 (90) Pulse Ox 96 99 95 O2 Delivery Room Air Room Air Room Air Room Air 07/31/18 07/31/18 07/31/18 07/31/18 00:54 03:42 05:50 07:00 Temp 98.5 98.6 98.5 98.6 Pulse 105 100 100 106 Resp 20 16 B/P (MAP) 134/69 149/94 (112) 149/94 138/89 (105) Pulse Ox 96 95 O2 Delivery Room Air Room Air 07/31/18 07:37 Pulse Ox 99 O2 Delivery Room Air Intake and Output 07/30/18 07/30/18 07/31/18 14:59 22:59 06:59 Intake Total 800 ml 1200 ml Output Total 210 ml Balance 590 ml 1200 ml Nutrition Consultation Dietary Evaluation: Recommendations by RD: Increase Calorie Intake, Decrease Calorie Intake Comments: REC diet as able per GI and STOCK CHECKER recommendations, goal diet cardiac w/textures and liquids per STOCK CHECKER recomendations Ensure TID, thickened on unit to honey thick consistency Ensure pudding BID on trays Expected Outcomes/Goals: PO intake to meet >75% est needs Interpretation of weight loss: >1-2% in 1 week Malnutrition Findings: Food and Nutrition Intake (Sev: <50% est energy req 5days Body Fat Depletion (Non Severe: Mild Depletion Weight Status: Obese MICAELA MERCHANT MD Jul 31, 2018 08:10
--- NOTE | 2018-07-31 10:01 | PDOC ---
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 bleed from [facility]. Found to have duodenal ulcer. No evidence of any new stroke. Plan No additional neurological studies needed Anticoagulation resumption per cardiology and gastroenterology, or consider referral for intervention such as atrial appendage ablation. Continue rehabilitation. Subjective No complaints Objective Vital Signs Date Time Temp Pulse Resp B/P (MAP) Pulse Ox O2 Delivery O2 Flow Rate FiO2 07/31/18 08:00 Room Air 07/31/18 07:37 99 07/31/18 07:00 98.6 106 16 138/89 (105) 98.6 l Intake and Output 07/31/18 07:00 Intake Total 2000 ml Output Total 210 ml Balance 1790 ml Intake Oral 1880 ml Blood Product IV Normal Saline Flush 120 ml Output Urine Total 210 ml # Voids 7 PHYSICAL EXAM Knows location, not date PERRL. EOMI. CN: left visual inattention, left central facial weakness Muscle tone: normal. Muscle strength: 4/5, weaker on the left DTR: 2+ Plantar reflex: flexor Gait: not examined in bed. Sensory exam: no abnormal findings. No cerebellar signs elicited. Review of Relevant I have reviewed the following items dylan (where applicable) has been applied. Labs Laboratory Tests Test 07/30/18 04:45 07/30/18 17:40 07/31/18 05:20 White Blood Count 15.0 x10^3/uL (4.0-11.0) 13.2 x10^3/uL (4.0-11.0) 13.8 x10^3/uL (4.0-11.0) Red Blood Count 2.63 x10^6/uL (4.30-5.70) 2.76 x10^6/uL (4.30-5.70) 2.80 x10^6/uL (4.30-5.70) Hemoglobin 7.8 g/dL (13.0-17.5) 8.0 g/dL (13.0-17.5) 8.2 g/dL (13.0-17.5) Hematocrit 23.7 % (39.0-53.0) 24.6 % (39.0-53.0) 24.8 % (39.0-53.0) Mean Corpuscular Volume 90 fL (79-100) 89 fL (79-100) 89 fL (79-100) Mean Corpuscular Hemoglobin 30 pg (25-35) 29 pg (25-35) 29 pg (25-35) Mean Corpuscular Hemoglobin Concent 33 g/dL (31-37) 33 g/dL (31-37) 33 g/dL (31-37) Red Cell Distribution Width 15.5 % (11.5-14.5) 15.5 % (11.5-14.5) 16.4 % (11.5-14.5) Platelet Count 300 x10^3/uL (140-400) 281 x10^3/uL (140-400) 299 x10^3/uL (140-400) Neutrophils (%) (Auto) 80 % (31-73) 82 % (31-73) Lymphocytes (%) (Auto) 8 % (24-48) 9 % (24-48) Monocytes (%) (Auto) 11 % (0-9) 8 % (0-9) Eosinophils (%) (Auto) 1 % (0-3) 1 % (0-3) Basophils (%) (Auto) 0 % (0-3) 0 % (0-3) Neutrophils # (Auto) 12.0 x10^3uL (1.8-7.7) 11.2 x10^3uL (1.8-7.7) Lymphocytes # (Auto) 1.2 x10^3/uL (1.0-4.8) 1.2 x10^3/uL (1.0-4.8) Monocytes # (Auto) 1.6 x10^3/uL (0.0-1.1) 1.1 x10^3/uL (0.0-1.1) Eosinophils # (Auto) 0.1 x10^3/uL (0.0-0.7) 0.2 x10^3/uL (0.0-0.7) Basophils # (Auto) 0.0 x10^3/uL (0.0-0.2) 0.0 x10^3/uL (0.0-0.2) Sodium Level 157 mmol/L (136-145) 155 mmol/L (136-145) Potassium Level 3.9 mmol/L (3.5-5.1) 3.7 mmol/L (3.5-5.1) Chloride Level 120 mmol/L (98-107) 118 mmol/L (98-107) Carbon Dioxide Level 23 mmol/L (21-32) 25 mmol/L (21-32) Anion Gap 14 (6-14) 12 (6-14) Blood Urea Nitrogen 65 mg/dL (8-26) 42 mg/dL (8-26) Creatinine 1.9 mg/dL (0.7-1.3) 1.6 mg/dL (0.7-1.3) Estimated GFR (Cockcroft-Gault) 35.5 43.3 BUN/Creatinine Ratio 34 (6-20) 26 (6-20) Glucose Level 111 mg/dL (70-99) 114 mg/dL (70-99) Calcium Level 8.7 mg/dL (8.5-10.1) 8.3 mg/dL (8.5-10.1) Total Bilirubin 0.2 mg/dL (0.2-1.0) 0.4 mg/dL (0.2-1.0) Aspartate Amino Transf (AST/SGOT) 28 U/L (15-37) 48 U/L (15-37) Alanine Aminotransferase (ALT/SGPT) 56 U/L (16-63) 96 U/L (16-63) Alkaline Phosphatase 76 U/L (46-116) 79 U/L (46-116) Total Protein 5.6 g/dL (6.4-8.2) 5.6 g/dL (6.4-8.2) Albumin 2.4 g/dL (3.4-5.0) 2.3 g/dL (3.4-5.0) Albumin/Globulin Ratio 0.8 (1.0-1.7) 0.7 (1.0-1.7) Laboratory Tests Test 07/30/18 17:40 07/31/18 05:20 White Blood Count 13.2 x10^3/uL (4.0-11.0) 13.8 x10^3/uL (4.0-11.0) Red Blood Count 2.76 x10^6/uL (4.30-5.70) 2.80 x10^6/uL (4.30-5.70) Hemoglobin 8.0 g/dL (13.0-17.5) 8.2 g/dL (13.0-17.5) Hematocrit 24.6 % (39.0-53.0) 24.8 % (39.0-53.0) Mean Corpuscular Volume 89 fL (79-100) 89 fL (79-100) Mean Corpuscular Hemoglobin 29 pg (25-35) 29 pg (25-35) Mean Corpuscular Hemoglobin Concent 33 g/dL (31-37) 33 g/dL (31-37) Red Cell Distribution Width 15.5 % (11.5-14.5) 16.4 % (11.5-14.5) Platelet Count 281 x10^3/uL (140-400) 299 x10^3/uL (140-400) Neutrophils (%) (Auto) 82 % (31-73) Lymphocytes (%) (Auto) 9 % (24-48) Monocytes (%) (Auto) 8 % (0-9) Eosinophils (%) (Auto) 1 % (0-3) Basophils (%) (Auto) 0 % (0-3) Neutrophils # (Auto) 11.2 x10^3uL (1.8-7.7) Lymphocytes # (Auto) 1.2 x10^3/uL (1.0-4.8) Monocytes # (Auto) 1.1 x10^3/uL (0.0-1.1) Eosinophils # (Auto) 0.2 x10^3/uL (0.0-0.7) Basophils # (Auto) 0.0 x10^3/uL (0.0-0.2) Sodium Level 155 mmol/L (136-145) Potassium Level 3.7 mmol/L (3.5-5.1) Chloride Level 118 mmol/L (98-107) Carbon Dioxide Level 25 mmol/L (21-32) Anion Gap 12 (6-14) Blood Urea Nitrogen 42 mg/dL (8-26) Creatinine 1.6 mg/dL (0.7-1.3) Estimated GFR (Cockcroft-Gault) 43.3 BUN/Creatinine Ratio 26 (6-20) Glucose Level 114 mg/dL (70-99) Calcium Level 8.3 mg/dL (8.5-10.1) Total Bilirubin 0.4 mg/dL (0.2-1.0) Aspartate Amino Transf (AST/SGOT) 48 U/L (15-37) Alanine Aminotransferase (ALT/SGPT) 96 U/L (16-63) Alkaline Phosphatase 79 U/L (46-116) Total Protein 5.6 g/dL (6.4-8.2) Albumin 2.3 g/dL (3.4-5.0) Albumin/Globulin Ratio 0.7 (1.0-1.7) Medications Current Medications Pantoprazole Sodium (PROTONIX VIAL for IV PUSH) 40 mg 1X ONCE IVP Last administered on 07/27/18at 00:06; Start 07/26/18 at 23:30; Stop 07/26/18 at 23:32; Status DC Sodium Chloride 500 ml @ 500 mls/hr 1X ONCE IV Last administered on 07/26/18at 23:30; Start 07/26/18 at 23:30; Stop 07/27/18 at 00:29; Status DC Sodium Chloride 1,000 ml @ 125 mls/hr Q8H IV ; Start 07/27/18 at 01:00; Stop 07/28/18 at 00:59; Status DC Pantoprazole Sodium 80 mg/ Sodium Chloride 100 ml @ 10 mls/hr Q10H IV Last administered on 07/27/18at 12:13; Start 07/27/18 at 02:00; Stop 07/27/18 at 14:21; Status DC Sodium Chloride 1,000 ml @ 200 mls/hr 1X ONCE IV Last administered on 07/27/18at 02:54; Start 07/27/18 at 02:00; Stop 07/27/18 at 06:59; Status DC Pantoprazole Sodium (Protonix) 40 mg BIDAC PO Last administered on 07/31/18at 08:04; Start 07/27/18 at 16:30 Atorvastatin Calcium (Lipitor) 40 mg QHS PO Last administered on 07/30/18at 20:42; Start 07/27/18 at 21:00 Albuterol/ Ipratropium (Duoneb) 3 ml RTQID NEB Last administered on 07/31/18 07:36; Start 07/27/18 at 20:00 Nitroglycerin (Nitro-Bid Oint) 0.5 inch Q6HRS TD Last administered on 07/31/18 00:54; Start 07/27/18 at 18:00 Diltiazem HCl (Cardizem 24hr Cd) 240 mg DAILY PO Last administered on 07/30/18at 08:08; Start 07/28/18 at 09:00 Fentanyl Citrate (Fentanyl 2ml Vial) 25 mcg PRN Q3HRS PRN IV PAIN; Start 07/27/18 at 17:15 Haloperidol Lactate (Haldol Inj) 2 mg PRN Q4HRS PRN IM AGITATION Last administered on 07/29/18at 10:12; Start 07/27/18 at 17:15 Hydralazine HCl (Apresoline Inj) 10 mg PRN Q4HRS PRN IVP give for SBP > 160; Start 07/27/18 at 17:15 Lorazepam (Ativan Inj) 1 mg PRN Q4HRS PRN IV ANXIETY / AGITATION Last administered on 07/31/18at 05:46; Start 07/27/18 at 17:15 Midazolam HCl (Versed) 5 mg STK-MED ONCE .ROUTE ; Start 07/28/18 at 11:23; Stop 07/28/18 at 11:24; Status DC Fentanyl Citrate (Fentanyl 2ml Vial) 100 mcg STK-MED ONCE .ROUTE ; Start 07/28/18 at 11:23; Stop 07/28/18 at 11:24; Status DC Ringer's Solution 1,000 ml @ 75 mls/hr [id number] IV Last administered on 07/31/18 06:00; Start 07/28/18 at 11:30 Midazolam HCl (Versed) 5 mg STK-MED ONCE IV Last administered on 07/28/18 11:35; Start 07/28/18 at 11:35; Stop 07/28/18 at 11:45; Status DC Fentanyl Citrate (Fentanyl 2ml Vial) 100 mcg STK-MED ONCE IV Last administered on 07/28/18at 11:35; Start 07/28/18 at 11:35; Stop 07/28/18 at 11:45; Status DC Acetaminophen (Tylenol) 650 mg 1X PRN PRN PO PRE-TRANSFUSION Last administered on 07/30/18at 10:36; Start 07/30/18 at 07:15; Stop 07/30/18 at 10:36; Status DC Diphenhydramine HCl (Benadryl Oral Elixir) 12.5 mg 1X PRN PRN PO PRE- TRANSFUSION Last administered on 07/30/18at 10:35; Start 07/30/18 at 07:15; Stop 07/30/18 at 10:36; Status DC Active Scripts Active Reported [Lorazepam] 1 Mg IV Q4HRS PRN [Fentanyl] 0.25 Mcg IV Q3HRS PRN [Haldol] 2 Mg IM Q4HRS PRN [Hydralazine] 10 Mg IV Q4HRS PRN Aspirin 325 Mg Tablet 1 Tab PO DAILY Diltiazem 24HR Cd (Diltiazem Hcl) 120 Mg Cap.er.24h 2 Cap PO DAILY [clinimix e/dextrose] 50 Ml IV Nitro-Bid (Nitroglycerin) 1 Gm Oint...g. 0.5 Inch TD Q6HRS Duoneb 0.5-3(2.5) Mg/3 Ml (Albuterol/Ipratropium) 3 Ml Ampul.neb 3 Ml NEB QID Atorvastatin Calcium 40 Mg Tablet 1 Tab PO QHS Vitals/I & O Vital Sign - Last 24 Hours 07/30/18 07/30/18 07/30/18 07/30/18 11:00 11:15 11:40 11:55 Temp 98.0 98.2 98.1 98.0 98.2 98.1 Pulse 106 105 104 90 Resp 20 20 20 20 B/P (MAP) 156/92 (113) 144/93 156/82 140/78 Pulse Ox 95 O2 Delivery Room Air 07/30/18 07/30/18 07/30/18 07/30/18 12:35 12:55 14:00 15:00 Temp 97.1 98.1 97.8 97.1 98.1 97.8 Pulse 104 96 89 Resp 20 20 B/P (MAP) 137/86 131/62 126/77 (93) Pulse Ox 95 O2 Delivery Room Air Room Air 6/207/30/18 07/30/18 07/30/18 15:00 16:00 16:12 17:02 Temp 97.9 97.9 97.9 97.9 Pulse 94 96 98 Resp 20 20 B/P (MAP) 138/72 127/59 127/59 Pulse Ox 95 O2 Delivery Room Air 07/30/18 07/30/18 07/30/18 07/30/18 19:00 19:41 20:50 23:00 Temp 98.8 99.2 98.8 99.2 Pulse 70 105 Resp 20 20 B/P (MAP) 130/64 (86) 134/69 (90) Pulse Ox 96 99 95 O2 Delivery Room Air Room Air Room Air Room Air 07/31/18 07/31/18 07/31/18 07/31/18 00:54 03:42 05:50 07:00 Temp 98.5 98.6 98.5 98.6 Pulse 105 100 100 106 Resp 20 16 B/P (MAP) 134/69 149/94 (112) 149/94 138/89 (105) Pulse Ox 96 95 O2 Delivery Room Air Room Air 07/31/18 07/31/18 07:37 08:00 Pulse Ox 99 O2 Delivery Room Air Room Air Intake and Output 07/30/18 07/30/18 07/31/18 15:00 23:00 07:00 Intake Total 800 ml 1200 ml Output Total 210 ml Balance 590 ml 1200 ml RAJIV GARRISON MD Jul 31, 2018 10:01
--- NOTE | 2018-07-31 10:45 | NUR ---
SS following up with discharge planning. SS phoned and faxed clinical updates to [facility], ; fax [phone]. [facility] has submitted for insurance authorization. SS will await authorization from insurance and will proceed accordingly. Pt's RN notified.
[2018-07-31 11:00] VITALS: BP 169/85
--- NOTE | 2018-07-31 12:38 | PDOC ---
Subjective: Subjective: Would like more to eat, denies pain. Objective: Objective: Reviewed w/ RN - no bleeding, no stools for a couple days. Vital Signs: Vital Signs Date Time Temp Pulse Resp B/P (MAP) Pulse Ox O2 Delivery O2 Flow Rate FiO2 07/31/18 11:00 98.0 113 22 169/85 (113) 98 98.0 07/31/18 08:00 Room Air Labs: Laboratory Tests Test 07/30/18 17:40 07/31/18 05:20 White Blood Count 13.2 x10^3/uL 13.8 x10^3/uL Red Blood Count 2.76 x10^6/uL 2.80 x10^6/uL Hemoglobin 8.0 g/dL 8.2 g/dL Hematocrit 24.6 % 24.8 % Mean Corpuscular Volume 89 fL 89 fL Mean Corpuscular Hemoglobin 29 pg 29 pg Mean Corpuscular Hemoglobin Concent 33 g/dL 33 g/dL Red Cell Distribution Width 15.5 % 16.4 % Platelet Count 281 x10^3/uL 299 x10^3/uL Neutrophils (%) (Auto) 82 % Lymphocytes (%) (Auto) 9 % Monocytes (%) (Auto) 8 % Eosinophils (%) (Auto) 1 % Basophils (%) (Auto) 0 % Neutrophils # (Auto) 11.2 x10^3uL Lymphocytes # (Auto) 1.2 x10^3/uL Monocytes # (Auto) 1.1 x10^3/uL Eosinophils # (Auto) 0.2 x10^3/uL Basophils # (Auto) 0.0 x10^3/uL Sodium Level 155 mmol/L Potassium Level 3.7 mmol/L Chloride Level 118 mmol/L Carbon Dioxide Level 25 mmol/L Anion Gap 12 Blood Urea Nitrogen 42 mg/dL Creatinine 1.6 mg/dL Estimated GFR (Cockcroft-Gault) 43.3 BUN/Creatinine Ratio 26 Glucose Level 114 mg/dL Calcium Level 8.3 mg/dL Total Bilirubin 0.4 mg/dL Aspartate Amino Transf (AST/SGOT) 48 U/L Alanine Aminotransferase (ALT/SGPT) 96 U/L Alkaline Phosphatase 79 U/L Total Protein 5.6 g/dL Albumin 2.3 g/dL Albumin/Globulin Ratio 0.7 Imaging: EGD 07/28 non-erosive gastritis s/p bx cratered duodenal ulcer with clean base ist portion duodenum PE: GEN: NAD LUNGS: room air HEART: tachycardic ABD: NABS, S/ND/NT NEURO/PSYCH: flat but answers appropriately A/P: DU - path pending Hematochezia - no recurrence Anemia - stable Recent CVA, A Fib - Eliquis and ASA held -- Reviewed w/ Dr. Corona - ideally would hold anti-coagulants x 2 weeks. Continue PPI. Okay to resume previous diet as recommended by [employer] last admission: dysphagia III diet w/honey thick liquids. MARITZA STAUFFER Jul 31, 2018 12:38 LAURA CORONA MD Jul 31, 2018 13:02
--- NOTE | 2018-07-31 13:07 | PATHOLOGY ---
[facility] Accession Number: [id number] . 01 Material submitted: . stomach - ANTRAL BIOPSY . 01 Clinical history: . GI bleed . 02 Diagnosis: Gastric biopsy, "#1 antral biopsy": - Mild chronic reactive gastropathy. - The immunoperoxidase stains for Helicobacter pylori is negative. . (SHA:mml; 07/31/2018) [facility]/07/31/2018 . 02 Electronically signed: . Star Renteria MD, Pathologist NPI- [id number] . 01 Gross description: . Received in formalin labeled "Schm[place]z, Tate, antral BX," are 2 segments of santana soft tissue measuring 0.8 x 0.3 x 0.3 cm in aggregate dimensions and ranging from 0.3 to 0.5 cm in maximum dimension. The specimen is submitted entirely in cassette A1. (TSD; 07/28/2018) TOB/TOB . 02 Pathologist provided ICD-10: K31.9 . 02 CPT . 180906, [id number] Specimen Comment: A courtesy copy of this report has been sent to Specimen Comment: [phone], , , . Specimen Comment: Report sent to ,DR BETANCOURT,DR ALEXANDER / DR LOUISE Performed at: 01 [facility] [address], [place] [id number] MD Moy Booth MD Phone: [phone] Performed at: 02 [facility] [address], [place] [id number] MD Celso Vicente MD Phone: [phone]
[2018-07-31] MEDS: POLYETHYLENE GLYCOL 3350 17 GM PACKET. PO SCH (14:11)
[2018-07-31 15:00] VITALS: BP 136/77
[2018-07-31 19:35] VITALS: BP 141/94
[2018-07-31] MEDS: ATORVASTATIN CALCIUM 40 MG TABLET. PO SCH (21:35)
[2018-07-31 22:42] VITALS: BP 170/88
[2018-08-01] MEDS: NITROGLYCERIN OINT 1 GM PACKET. TD SCH ×4 (00:36→17:37)
--- NOTE | 2018-08-01 00:49 | NUR ---
PT CONTINUES TO PULL LEADS OFF, PLACES THEM ON HIS NOSE AND FOREHEAD. TALKS TO MAJOR CYNTHIA, GROUND CONTROL. CONTINUES TO REMOVE PATCHES ADMIN IV ATIVAN, IV BP MEDS PER BP. LCRN
[2018-08-01 02:04] VITALS: BP 135/89
[2018-08-01] MEDS: fentaNYL PF VIAL 100 MCG/2 ML VIAL IV PRN ×3 (03:35→21:21)
[2018-08-01 07:00] VITALS: BP 126/83
[2018-08-01] MEDS: PANTOPRAZOLE 40 MG TABLET.DR. PO SCH ×2 (07:09→16:56)
[2018-08-01] MEDS: IPRATRPIUM/ALBUTEROL 0.5/2.5MG 3 ML NEBU. NEB SCH ×4 (07:24→19:51)
[2018-08-01] MEDS: POLYETHYLENE GLYCOL 3350 17 GM PACKET. PO SCH (08:36)
--- NOTE | 2018-08-01 09:06 | PDOC ---
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 bleed from [facility]. Found to have duodenal ulcer. No evidence of any new stroke. Plan No additional neurological studies needed Anticoagulation resumption per cardiology and gastroenterology, or consider referral for intervention such as atrial appendage ablation. Continue rehabilitation. Subjective No complaints Objective Vital Signs Date Time Temp Pulse Resp B/P (MAP) Pulse Ox O2 Delivery O2 Flow Rate FiO2 08/01/18 08:36 104 126/83 08/01/18 08:00 Room Air 08/01/18 07:40 98 08/01/18 07:10 3.0 08/01/18 07:00 97.5 18 97.5 Intake and Output 08/01/18 07:00 Intake Total 560 ml Balance 560 ml Intake Oral 560 ml # Voids 7 # Bowel Movements 1 PHYSICAL EXAM Knows location, not date PERRL. EOMI. CN: left visual inattention, left central facial weakness Muscle tone: normal. Muscle strength: 4/5, weaker on the left DTR: 2+ Plantar reflex: flexor Gait: not examined in bed. Sensory exam: no abnormal findings. No cerebellar signs elicited. Review of Relevant I have reviewed the following items dylan (where applicable) has been applied. Labs Laboratory Tests Test 07/30/18 17:40 07/31/18 05:20 White Blood Count 13.2 x10^3/uL (4.0-11.0) 13.8 x10^3/uL (4.0-11.0) Red Blood Count 2.76 x10^6/uL (4.30-5.70) 2.80 x10^6/uL (4.30-5.70) Hemoglobin 8.0 g/dL (13.0-17.5) 8.2 g/dL (13.0-17.5) Hematocrit 24.6 % (39.0-53.0) 24.8 % (39.0-53.0) Mean Corpuscular Volume 89 fL (79-100) 89 fL (79-100) Mean Corpuscular Hemoglobin 29 pg (25-35) 29 pg (25-35) Mean Corpuscular Hemoglobin Concent 33 g/dL (31-37) 33 g/dL (31-37) Red Cell Distribution Width 15.5 % (11.5-14.5) 16.4 % (11.5-14.5) Platelet Count 281 x10^3/uL (140-400) 299 x10^3/uL (140-400) Neutrophils (%) (Auto) 82 % (31-73) Lymphocytes (%) (Auto) 9 % (24-48) Monocytes (%) (Auto) 8 % (0-9) Eosinophils (%) (Auto) 1 % (0-3) Basophils (%) (Auto) 0 % (0-3) Neutrophils # (Auto) 11.2 x10^3uL (1.8-7.7) Lymphocytes # (Auto) 1.2 x10^3/uL (1.0-4.8) Monocytes # (Auto) 1.1 x10^3/uL (0.0-1.1) Eosinophils # (Auto) 0.2 x10^3/uL (0.0-0.7) Basophils # (Auto) 0.0 x10^3/uL (0.0-0.2) Sodium Level 155 mmol/L (136-145) Potassium Level 3.7 mmol/L (3.5-5.1) Chloride Level 118 mmol/L (98-107) Carbon Dioxide Level 25 mmol/L (21-32) Anion Gap 12 (6-14) Blood Urea Nitrogen 42 mg/dL (8-26) Creatinine 1.6 mg/dL (0.7-1.3) Estimated GFR (Cockcroft-Gault) 43.3 BUN/Creatinine Ratio 26 (6-20) Glucose Level 114 mg/dL (70-99) Calcium Level 8.3 mg/dL (8.5-10.1) Total Bilirubin 0.4 mg/dL (0.2-1.0) Aspartate Amino Transf (AST/SGOT) 48 U/L (15-37) Alanine Aminotransferase (ALT/SGPT) 96 U/L (16-63) Alkaline Phosphatase 79 U/L (46-116) Total Protein 5.6 g/dL (6.4-8.2) Albumin 2.3 g/dL (3.4-5.0) Albumin/Globulin Ratio 0.7 (1.0-1.7) Medications Current Medications Pantoprazole Sodium (PROTONIX VIAL for IV PUSH) 40 mg 1X ONCE IVP Last administered on 07/27/18 00:06; Start 07/26/18 at 23:30; Stop 07/26/18 at 23:32; Status DC Sodium Chloride 500 ml @ 500 mls/hr 1X ONCE IV Last administered on 07/26/18at 23:30; Start 07/26/18 at 23:30; Stop 07/27/18 at 00:29; Status DC Sodium Chloride 1,000 ml @ 125 mls/hr Q8H IV ; Start 07/27/18 at 01:00; Stop 07/28/18 at 00:59; Status DC Pantoprazole Sodium 80 mg/ Sodium Chloride 100 ml @ 10 mls/hr Q10H IV Last administered on 07/27/18at 12:13; Start 07/27/18 at 02:00; Stop 07/27/18 at 14:21; Status DC Sodium Chloride 1,000 ml @ 200 mls/hr 1X ONCE IV Last administered on 07/27/18at 02:54; Start 07/27/18 at 02:00; Stop 07/27/18 at 06:59; Status DC Pantoprazole Sodium (Protonix) 40 mg BIDAC PO Last administered on 08/01/18 07:09; Start 07/27/18 at 16:30 Atorvastatin Calcium (Lipitor) 40 mg QHS PO Last administered on 07/31/18 21:35; Start 07/27/18 at 21:00 Albuterol/ Ipratropium (Duoneb) 3 ml RTQID NEB Last administered on 08/01/18 07:24; Start 07/27/18 at 20:00 Nitroglycerin (Nitro-Bid Oint) 0.5 inch Q6HRS TD Last administered on 08/01/18 06:12; Start 07/27/18 at 18:00 Diltiazem HCl (Cardizem 24hr Cd) 240 mg DAILY PO Last administered on 08/01/18 08:36; Start 07/28/18 at 09:00 Fentanyl Citrate (Fentanyl 2ml Vial) 25 mcg PRN Q3HRS PRN IV PAIN Last administered on 08/01/18 07:10; Start 07/27/18 at 17:15 Haloperidol Lactate (Haldol Inj) 2 mg PRN Q4HRS PRN IM AGITATION Last administered on 07/29/18 10:12; Start 07/27/18 at 17:15 Hydralazine HCl (Apresoline Inj) 10 mg PRN Q4HRS PRN IVP give for SBP > 160 Last administered on 08/01/18 00:37; Start 07/27/18 at 17:15 Lorazepam (Ativan Inj) 1 mg PRN Q4HRS PRN IV ANXIETY / AGITATION Last administered on 08/01/18 00:36; Start 07/27/18 at 17:15 Midazolam HCl (Versed) 5 mg STK-MED ONCE .ROUTE ; Start 07/28/18 at 11:23; Stop 07/28/18 at 11:24; Status DC Fentanyl Citrate (Fentanyl 2ml Vial) 100 mcg STK-MED ONCE .ROUTE ; Start 07/28/18 at 11:23; Stop 07/28/18 at 11:24; Status DC Ringer's Solution 1,000 ml @ 75 mls/hr [id number] IV Last administered on 07/31/18 06:00; Start 07/28/18 at 11:30; Stop 07/31/18 at 17:30; Status DC Midazolam HCl (Versed) 5 mg STK-MED ONCE IV Last administered on 07/28/18 11:35; Start 07/28/18 at 11:35; Stop 07/28/18 at 11:45; Status DC Fentanyl Citrate (Fentanyl 2ml Vial) 100 mcg STK-MED ONCE IV Last administered on 07/28/18 11:35; Start 07/28/18 at 11:35; Stop 07/28/18 at 11:45; Status DC Acetaminophen (Tylenol) 650 mg 1X PRN PRN PO PRE-TRANSFUSION Last administered on 07/30/18 10:36; Start 07/30/18 at 07:15; Stop 07/30/18 at 10:36; Status DC Diphenhydramine HCl (Benadryl Oral Elixir) 12.5 mg 1X PRN PRN PO PRE-TR ANSFUSION Last administered on 07/30/18 10:35; Start 07/30/18 at 07:15; Stop 07/30/18 at 10:36; Status DC Polyethylene Glycol (miraLAX PACKET) 17 gm DAILY PO Last administered on 08/01/18at 08:36; Start 07/31/18 at 13:30 Active Scripts Active Reported [Lorazepam] 1 Mg IV Q4HRS PRN [Fentanyl] 0.25 Mcg IV Q3HRS PRN [Haldol] 2 Mg IM Q4HRS PRN [Hydralazine] 10 Mg IV Q4HRS PRN Aspirin 325 Mg Tablet 1 Tab PO DAILY Diltiazem 24HR Cd (Diltiazem Hcl) 120 Mg Cap.er.24h 2 Cap PO DAILY [clinimix e/dextrose] 50 Ml IV Nitro-Bid (Nitroglycerin) 1 Gm Oint...g. 0.5 Inch TD Q6HRS Duoneb 0.5-3(2.5) Mg/3 Ml (Albuterol/Ipratropium) 3 Ml Ampul.neb 3 Ml NEB QID Atorvastatin Calcium 40 Mg Tablet 1 Tab PO QHS Vitals/I & O Vital Sign - Last 24 Hours 07/31/18 07/31/18 07/31/18 07/31/18 10:00 11:00 12:32 15:00 Temp 98.0 98.9 98.0 98.9 Pulse 106 113 99 Resp 22 16 B/P (MAP) 138/89 169/85 (113) 136/77 (96) Pulse Ox 98 96 O2 Delivery Room Air Room Air 07/31/18 07/31/18 07/31/18 07/31/18 16:56 19:35 20:00 20:17 Temp 97.4 97.4 Pulse 115 Resp 16 B/P (MAP) 141/94 (110) Pulse Ox 98 98 O2 Delivery Room Air Room Air Room Air Room Air 07/31/18 08/01/18 08/01/18 08/01/18 22:42 00:36 00:37 02:04 Temp 97.9 97.8 97.9 97.8 Pulse 97 97 97 100 Resp 18 18 B/P (MAP) 170/88 (115) 170/88 170/88 135/89 (104) Pulse Ox 96 92 O2 Delivery Room Air Room Air 08/01/18 08/01/18 08/01/1808/01/19 06:12 07:00 07:10 07:26 Temp 97.5 97.5 Pulse 120 104 Resp 18 B/P (MAP) 158/89 126/83 (97) Pulse Ox 99 98 O2 Delivery Room Air Room Air Room Air O2 Flow Rate 3.0 08/01/18 08/01/18 08/01/18 07:40 08:00 08:36 Pulse 104 B/P (MAP) 126/83 Pulse Ox 98 O2 Delivery Room Air Room Air Intake and Output 07/31/18 07/31/18 08/01/18 15:00 23:00 07:00 Intake Total 240 ml 320 ml Balance 240 ml 320 ml RAJIV GARRISON MD Aug 01, 2018 09:06
[2018-08-01 11:00] VITALS: BP 127/93
--- NOTE | 2018-08-01 11:34 | NUR ---
SS following up with discharge planning. Per request from [facility] SS phoned and faxed referrals to senior care units to include [facility], [facility], and [facility]. All facilities have denied at this time. SS contacted [facility] and left message to discuss. SS spoke with [facility]. [facility] has continued to accept pt and will contact [facility] as well.
--- NOTE | 2018-08-01 11:47 | PDOC ---
PROGRESS NOTES Chief Complaint Chief Complaint A/P: Acute blood loss anemia - with his BUN elevation there is confirmed likely UGIB - EGD - non-erosive gastritis s/p bx and cratered duodenal ulcer with clean base ist portion duodenum, and with hep c history possibly has cirrhosis, transfusion today given h and h result and recommendations from gi [facility] end[facility] consultant, PPI, hold ASA, eliquis Hypernatremia - Likely from poor PO intake, patient is on a honey thick diet. Hopefully he will have an improvement in his intake over the next 24 hours. Recent Acute CVA - Area of acute ischemia/infarction is seen involving portions of the right temporal, right occipital and right frontoparietal lobes as discussed above. This is a right MCA distribution. There is mild surrounding edema without evidence of significant mass effect. was on eliquis. Continue Lipitor 40 mg HS. Hx of PAFIB - needs anticoagulation, but with GI bleeding is on hold. Cardiology to see as well. Likely will need atrial appendage closure device HTN: labile. monitor on meds HLP - cont statin CECIL on CKD stage 4 - likely vasomotor Agitation/Aggressive Behavior - on antipsychotics Weak cough - start nebs today, may need glycopyrrolate Acute/subacute right frontal, parietal, temporal and occipital lobe infarcts. 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 Amphetamine positive. Cannabinoids positive. Obesity. Hep C history - will check viral load FEN - Clear liquid diet PPX - PPI FULL CODE CVC admission for GI bleed,most likely 2/2 UGIB. 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 Gutiérrez is a 68 year old M w/ PMHx HTN, HLD, Hep C, admitted for stroke symptoms to [facility] 07/18/18 and discharged to [facility] on 07/25/18. He last used meth prior to admit and smokes marijuana as well. He was seen by cardiology, started on heparin GTT, cardizem GTT for management for his afib, seen by neurology as well, MRI confirmed area of acute ischemia/infarction is seen involving portions of the right temporal, right occipital and right frontoparietal lobes. This is a right MCA distribution. There is mild surrounding edema without evidence of significant mass effect. He was continuing to have difficulty swallowing, GI was consulted for PEG consideration, was on PPN for nearly 1 week for nutrition. 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 Has been tolerating ice chips per his well. Up and alert this morning, he is frustrated with his stroke symptoms. Videoswallow showed penetration with honey-thickened liquids. Discussed with he and his bedside. His cough is still very weak. Given nebs with improvement. IS and acapella flutter valve both bedside. had been discharged to [facility] on Eliquis. EGD 07/28/18 with cratered duodenal ulcer noted, PPI continued, started diet confused, agitated, consider LTAC or SNU wide complex tachycardia today, consult CV Vitals Vitals Vital Signs Date Time Temp Pulse Resp B/P (MAP) Pulse Ox O2 Delivery O2 Flow Rate FiO2 08/01/18 11:42 98 Room Air 08/01/18 11:00 98.2 102 20 127/93 (104) 98.2 08/01/18 07:10 3.0 Physical Exam General: Alert, Cooperative, No acute distress Lungs: Clear, Other Abdomen: Normal bowel sounds, Soft, No tenderness, No hepatosplenomegaly, No masses Extremities: No clubbing, No cyanosis, No edema, Normal pulses, No tenderness/swelling Skin: No rashes, No breakdown, No significant lesion Assessment and Plan Assessmemt and Plan Problems Medical Problems: (1) Acute on chronic renal failure Status: Acute (2) Anemia Status: Acute (3) Anticoagulant-induced bleeding Status: Acute (4) Hypoalbuminemia Status: Acute Comment Review of Relevant I have reviewed the following items dylan (where applicable) has been applied. Labs Laboratory Tests Test 07/30/18 17:40 07/31/18 05:20 White Blood Count 13.2 x10^3/uL (4.0-11.0) 13.8 x10^3/uL (4.0-11.0) Red Blood Count 2.76 x10^6/uL (4.30-5.70) 2.80 x10^6/uL (4.30-5.70) Hemoglobin 8.0 g/dL (13.0-17.5) 8.2 g/dL (13.0-17.5) Hematocrit 24.6 % (39.0-53.0) 24.8 % (39.0-53.0) Mean Corpuscular Volume 89 fL (79-100) 89 fL (79-100) Mean Corpuscular Hemoglobin 29 pg (25-35) 29 pg (25-35) Mean Corpuscular Hemoglobin Concent 33 g/dL (31-37) 33 g/dL (31-37) Red Cell Distribution Width 15.5 % (11.5-14.5) 16.4 % (11.5-14.5) Platelet Count 281 x10^3/uL (140-400) 299 x10^3/uL (140-400) Neutrophils (%) (Auto) 82 % (31-73) Lymphocytes (%) (Auto) 9 % (24-48) Monocytes (%) (Auto) 8 % (0-9) Eosinophils (%) (Auto) 1 % (0-3) Basophils (%) (Auto) 0 % (0-3) Neutrophils # (Auto) 11.2 x10^3uL (1.8-7.7) Lymphocytes # (Auto) 1.2 x10^3/uL (1.0-4.8) Monocytes # (Auto) 1.1 x10^3/uL (0.0-1.1) Eosinophils # (Auto) 0.2 x10^3/uL (0.0-0.7) Basophils # (Auto) 0.0 x10^3/uL (0.0-0.2) Sodium Level 155 mmol/L (136-145) Potassium Level 3.7 mmol/L (3.5-5.1) Chloride Level 118 mmol/L (98-107) Carbon Dioxide Level 25 mmol/L (21-32) Anion Gap 12 (6-14) Blood Urea Nitrogen 42 mg/dL (8-26) Creatinine 1.6 mg/dL (0.7-1.3) Estimated GFR (Cockcroft-Gault) 43.3 BUN/Creatinine Ratio 26 (6-20) Glucose Level 114 mg/dL (70-99) Calcium Level 8.3 mg/dL (8.5-10.1) Total Bilirubin 0.4 mg/dL (0.2-1.0) Aspartate Amino Transf (AST/SGOT) 48 U/L (15-37) Alanine Aminotransferase (ALT/SGPT) 96 U/L (16-63) Alkaline Phosphatase 79 U/L (46-116) Total Protein 5.6 g/dL (6.4-8.2) Albumin 2.3 g/dL (3.4-5.0) Albumin/Globulin Ratio 0.7 (1.0-1.7) Medications Current Medications Pantoprazole Sodium (PROTONIX VIAL for IV PUSH) 40 mg 1X ONCE IVP Last administered on 07/27/18at 00:06; Start 07/26/18 at 23:30; Stop 07/26/18 at 23:32; Status DC Sodium Chloride 500 ml @ 500 mls/hr 1X ONCE IV Last administered on 07/26/18at 23:30; Start 07/26/18 at 23:30; Stop 07/27/18 at 00:29; Status DC Sodium Chloride 1,000 ml @ 125 mls/hr Q8H IV ; Start 07/27/18 at 01:00; Stop 07/28/18 at 00:59; Status DC Pantoprazole Sodium 80 mg/ Sodium Chloride 100 ml @ 10 mls/hr Q10H IV Last administered on 07/27/18at 12:13; Start 07/27/18 at 02:00; Stop 07/27/18 at 14:21; Status DC Sodium Chloride 1,000 ml @ 200 mls/hr 1X ONCE IV Last administered on 07/27/18at 02:54; Start 07/27/18 at 02:00; Stop 07/27/18 at 06:59; Status DC Pantoprazole Sodium (Protonix) 40 mg BIDAC PO Last administered on 08/01/18at 07:09; Start 07/27/18 at 16:30 Atorvastatin Calcium (Lipitor) 40 mg QHS PO Last administered on 07/31/18 21:35; Start 07/27/18 at 21:00 Albuterol/ Ipratropium (Duoneb) 3 ml RTQID NEB Last administered on 08/01/18at 11:41; Start 07/27/18 at 20:00 Nitroglycerin (Nitro-Bid Oint) 0.5 inch Q6HRS TD Last administered on 08/01/18at 06:12; Start 07/27/18 at 18:00 Diltiazem HCl (Cardizem 24hr Cd) 240 mg DAILY PO Last administered on 08/01/18 08:36; Start 07/28/18 at 09:00 Fentanyl Citrate (Fentanyl 2ml Vial) 25 mcg PRN Q3HRS PRN IV PAIN Last administered on 08/01/18 07:10; Start 07/27/18 at 17:15 Haloperidol Lactate (Haldol Inj) 2 mg PRN Q4HRS PRN IM AGITATION Last administered on 07/29/18 10:12; Start 07/27/18 at 17:15 Hydralazine HCl (Apresoline Inj) 10 mg PRN Q4HRS PRN IVP give for SBP > 160 Last administered on 08/01/18 00:37; Start 07/27/18 at 17:15 Lorazepam (Ativan Inj) 1 mg PRN Q4HRS PRN IV ANXIETY / AGITATION Last administered on 08/01/18 00:36; Start 07/27/18 at 17:15 Midazolam HCl (Versed) 5 mg STK-MED ONCE .ROUTE ; Start 07/28/18 at 11:23; Stop 07/28/18 at 11:24; Status DC Fentanyl Citrate (Fentanyl 2ml Vial) 100 mcg STK-MED ONCE .ROUTE ; Start at 11:23; Stop 07/28/18 at 11:24; Status DC Ringer's Solution 1,000 ml @ 75 mls/hr [id number] IV Last administered on 06:00; Start 07/28/18 at 11:30; Stop 07/31/18 at 17:30; Status DC Midazolam HCl (Versed) 5 mg STK-MED ONCE IV Last administered on 07/28/18 11:35; Start 07/28/18 at 11:35; Stop 07/28/18 at 11:45; Status DC Fentanyl Citrate (Fentanyl 2ml Vial) 100 mcg STK-MED ONCE IV Last administered on 07/28/18 11:35; Start 07/28/18 at 11:35; Stop 07/28/18 at 11:45; Status DC Acetaminophen (Tylenol) 650 mg 1X PRN PRN PO PRE-TRANSFUSION Last administered on 07/30/18 10:36; Start 07/30/18 at 07:15; Stop 07/30/18 at 10:36; Status DC Diphenhydramine HCl (Benadryl Oral Elixir) 12.5 mg 1X PRN PRN PO PRE- TRANSFUSION Last administered on 07/30/18at 10:35; Start 07/30/18 at 07:15; Stop 07/30/18 at 10:36; Status DC Polyethylene Glycol (miraLAX PACKET) 17 gm DAILY PO Last administered on 08/01/18at 08:36; Start 07/31/18 at 13:30 Active Scripts Active Reported [Lorazepam] 1 Mg IV Q4HRS PRN [Fentanyl] 0.25 Mcg IV Q3HRS PRN [Haldol] 2 Mg IM Q4HRS PRN [Hydralazine] 10 Mg IV Q4HRS PRN Aspirin 325 Mg Tablet 1 Tab PO DAILY Diltiazem 24HR Cd (Diltiazem Hcl) 120 Mg Cap.er.24h 2 Cap PO DAILY [clinimix e/dextrose] 50 Ml IV Nitro-Bid (Nitroglycerin) 1 Gm Oint...g. 0.5 Inch TD Q6HRS Duoneb 0.5-3(2.5) Mg/3 Ml (Albuterol/Ipratropium) 3 Ml Ampul.neb 3 Ml NEB QID Atorvastatin Calcium 40 Mg Tablet 1 Tab PO QHS Vitals/I & O Vital Sign - Last 24 Hours 07/31/18 07/31/18 07/31/18 07/31/18 12:32 15:00 16:56 19:35 Temp 98.9 97.4 98.9 97.4 Pulse 99 115 Resp 16 16 B/P (MAP) 136/77 (96) 141/94 (110) Pulse Ox 96 98 O2 Delivery Room Air Room Air Room Air Room Air 07/31/18 07/31/18 07/31/18 08/01/18 20:00 20:17 22:42 00:36 Temp 97.9 97.9 Pulse 97 97 Resp 18 B/P (MAP) 170/88 (115) 170/88 Pulse Ox 98 96 O2 Delivery Room Air Room Air Room Air 08/01/18 08/01/18 08/01/18 08/01/18 00:37 02:04 06:12 07:00 Temp 97.8 97.5 97.8 97.5 Pulse 97 100 120 104 Resp 18 18 B/P (MAP) 170/88 135/89 (104) 158/89 126/83 (97) Pulse Ox 92 99 O2 Delivery Room Air Room Air 08/01/18 08/01/18 08/01/18 08/01/18 07:10 07:26 07:40 08:00 Pulse Ox 98 98 O2 Delivery Room Air Room Air Room Air Room Air O2 Flow Rate 3.0 08/01/18 08/01/18 08/01/18 08:36 11:00 11:42 Temp 98.2 98.2 Pulse 104 102 Resp 20 B/P (MAP) 126/83 127/93 (104) Pulse Ox 96 98 O2 Delivery Room Air Room Air Intake and Output 07/31/18 07/31/18 08/01/18 15:00 23:00 07:00 Intake Total 240 ml 320 ml Balance 240 ml 320 ml Nutrition Consultation Dietary Evaluation: Recommendations by RD: Increase Calorie Intake, Decrease Calorie Intake Comments: REC continue w/Dyspahgia III diet w/Honey thick liquids as ordered today - will not add additional dietary restrictions to promote PO intake Ensure pudding BID on trays Ensure prn, between meals and/or per pt request, thickened on unit Expected Outcomes/Goals: PO intake to meet >75% est needs - met at times, goal ongoing Interpretation of weight loss: >1-2% in 1 week Malnutrition Findings: Food and Nutrition Intake (Sev: <50% est energy req 5days Body Fat Depletion (Non Severe: Mild Depletion Weight Status: Obese SHANTA ARREAGA MD Aug 01, 2018 11:47
--- NOTE | 2018-08-01 11:52 | NUR ---
Pt having runs of vtach. Pt not symptomatic. Cardiology SQL ARCHIT[employer] notified.
--- NOTE | 2018-08-01 12:00 | PDOC ---
CARDIO Progress Notes Date and Time Date of Service 08/01/18 Time of Evaluation 1115 Subjective Subjective: No Chest Pain, No shortness of breath Vitals Vitals Vital Signs Date Time Temp Pulse Resp B/P (MAP) Pulse Ox O2 Delivery O2 Flow Rate FiO2 08/01/18 11:42 98 Room Air 08/01/18 11:00 98.2 102 20 127/93 (104) 98.2 08/01/18 07:10 3.0 Weight Weight [ ] Input and Output Intake and Output Intake and Output 08/01/18 07:00 Intake Total 560 ml Balance 560 ml Intake Oral 560 ml # Voids 7 # Bowel Movements 1 Physical Exam HEENT: Neck Supple W Full Motion Chest: Symmetric LUNGS: Clear to Auscultation Heart: S1S2, irregularly irregular Abdomen: Soft N/T Extremities: No Edema Neurology: alert, follow commands Assessment Assessment 1. Hematochezia, duodenal ulcer 2. PAFIB; Eliquis held 3. Recent acute CVA with left sided weakness 4. Hypertension; controlled 5. Hyperlipidemia 6. CKD 7. NSVT; 14-beat NSVT today 8. Leukocytosis, fevers 9. CECIL- better Recommendations Check Mg level Cardizem for rate control Continue statin Outpatient referral to [facility] for JOE closure device. Supportive care BARBY BOSTON APRN Aug 01, 2018 11:59
--- NOTE | 2018-08-01 13:04 | PDOC ---
Objective: Objective: Reviewed w/ RN - eating very well, hasn't stooled, says neurology wondering when can restart Eliquis, cardiology checking magnesium for run of V tach. Vital Signs: Vital Signs Date Time Temp Pulse Resp B/P (MAP) Pulse Ox O2 Delivery O2 Flow Rate FiO2 08/01/18 11:42 98 Room Air 08/01/18 11:00 98.2 102 20 127/93 (104) 98.2 08/01/18 07:10 3.0 Labs: Material submitted: . stomach - ANTRAL BIOPSY Clinical history: . GI bleed Diagnosis: Gastric biopsy, "#1 antral biopsy": - Mild chronic reactive gastropathy. - The immunoperoxidase stains for Helicobacter pylori is negative. PE: GEN: NAD, up in chair LUNGS: room air HEART: tachycardic ABD: soft, non-tender NEURO/PSYCH: sleeping, did not awaken during exam A/P: Cratered duodenal ulcer Recent CVA, A Fib -- Continue PPI. Ideally would avoid restarting Eliquis/ASA for ~2 weeks. Adjust Miralax as needed. MARITZA STAUFFER Aug 01, 2018 13:04
[2018-08-01 15:00] VITALS: BP 138/83
[2018-08-01 19:00] VITALS: BP 137/88
[2018-08-01] MEDS: ATORVASTATIN CALCIUM 40 MG TABLET. PO SCH (21:00)
[2018-08-01 23:10] VITALS: BP 129/73
[2018-08-02] MEDS: NITROGLYCERIN OINT 1 GM PACKET. TD SCH ×5 (01:18→23:46)
[2018-08-02 03:00] VITALS: BP 135/86
[2018-08-02 05:55] LABS: BASO % 0 % (0-3); EOS # 0.1 x10^3/uL (0.0-0.7); EOS % 1 % (0-3); HEMATOCRIT 24.5 % (39.0-53.0); HEMOGLOBIN 8.2 g/dL (13.0-17.5); LYMPH # 1.1 x10^3/uL (1.0-4.8); LYMPH % 8 % (24-48); MEAN CORPUSCULAR HEMOGLOBIN 30 pg (25-35); MEAN CORPUSCULAR HGB CONC 34 g/dL (31-37); MEAN CORPUSCULAR VOLUME 89 fL (79-100); MONO # 0.9 x10^3/uL (0.0-1.1); MONO % 6 % (0-9); NEUT # 11.5 x10^3uL (1.8-7.7); NEUT % 85 % (31-73); PLATELET COUNT 312 x10^3/uL (140-400); RED BLOOD COUNT 2.76 x10^6/uL (4.30-5.70); RED CELL DISTRIBUTION WIDTH 15.5 % (11.5-14.5); WHITE BLOOD COUNT 13.6 x10^3/uL (4.0-11.0)
[2018-08-02 06:06] LABS: ALBUMIN 2.1 g/dL (3.4-5.0); ALBUMIN/GLOBULIN RATIO 0.6 (1.0-1.7); CALCIUM 8.2 mg/dL (8.5-10.1); CREATININE 1.8 mg/dL (0.7-1.3); GFR 37.8; POTASSIUM 4.1 mmol/L (3.5-5.1); TOTAL BILIRUBIN 0.8 mg/dL (0.2-1.0); TOTAL PROTEIN 5.8 g/dL (6.4-8.2)
[2018-08-02 07:00] VITALS: BP 136/80
[2018-08-02] MEDS: IPRATRPIUM/ALBUTEROL 0.5/2.5MG 3 ML NEBU. NEB SCH ×4 (07:27→19:39)
--- NOTE | 2018-08-02 08:53 | PDOC ---
Objective: Objective: Reviewed w/ RN - tolerating PO, no stool, was awake earlier this morning. Vital Signs: Vital Signs Date Time Temp Pulse Resp B/P (MAP) Pulse Ox O2 Delivery O2 Flow Rate FiO2 08/02/18 07:27 99 Nasal Cannula 2.0 08/02/18 07:00 97.5 93 22 136/80 (98) 97.5 Labs: Laboratory Tests Test 08/01/18 13:05 08/02/18 05:35 Magnesium Level 2.2 mg/dL White Blood Count 13.6 x10^3/uL Red Blood Count 2.76 x10^6/uL Hemoglobin 8.2 g/dL Hematocrit 24.5 % Mean Corpuscular Volume 89 fL Mean Corpuscular Hemoglobin 30 pg Mean Corpuscular Hemoglobin Concent 34 g/dL Red Cell Distribution Width 15.5 % Platelet Count 312 x10^3/uL Neutrophils (%) (Auto) 85 % Lymphocytes (%) (Auto) 8 % Monocytes (%) (Auto) 6 % Eosinophils (%) (Auto) 1 % Basophils (%) (Auto) 0 % Neutrophils # (Auto) 11.5 x10^3uL Lymphocytes # (Auto) 1.1 x10^3/uL Monocytes # (Auto) 0.9 x10^3/uL Eosinophils # (Auto) 0.1 x10^3/uL Basophils # (Auto) 0.0 x10^3/uL Sodium Level 150 mmol/L Potassium Level 4.1 mmol/L Chloride Level 113 mmol/L Carbon Dioxide Level 28 mmol/L Anion Gap 9 Blood Urea Nitrogen 29 mg/dL Creatinine 1.8 mg/dL Estimated GFR (Cockcroft-Gault) 37.8 BUN/Creatinine Ratio 16 Glucose Level 116 mg/dL Calcium Level 8.2 mg/dL Total Bilirubin 0.8 mg/dL Aspartate Amino Transf (AST/SGOT) 107 U/L Alanine Aminotransferase (ALT/SGPT) 233 U/L Alkaline Phosphatase 169 U/L Total Protein 5.8 g/dL Albumin 2.1 g/dL Albumin/Globulin Ratio 0.6 PE: GEN: NAD, up in recliner LUNGS: NC 2L HEART: RR ABD: NABS, S/ND/NT NEURO/PSYCH: sleeping, did not awaken during exam A/P: Duodenal ulcer Elevated LFTs s/p cholecystectomy - liver unremarkable on recent CT -- Continue PPI. Anti-coagulants on hold for now. Try Dulcolax, continue Miralax. Monitor LFTs, will check US. MARITZA STAUFFER Aug 02, 2018 08:53
[2018-08-02] MEDS: POLYETHYLENE GLYCOL 3350 17 GM PACKET. PO SCH (09:14)
[2018-08-02] MEDS: LIDOCAINE (700MG/PATCH) PATCH. TD SCH (09:14)
[2018-08-02] MEDS: PANTOPRAZOLE 40 MG TABLET.DR. PO SCH ×2 (09:15→16:30)
[2018-08-02] MEDS: DICLOFENAC SODIUM 1% TOPICAL GEL 100GM TUBE. TP SCH ×2 (09:15→21:02)
[2018-08-02] MEDS ORDERED: BISACODYL 5 MG TABLET.DR. PO ONE (09:30)
--- NOTE | 2018-08-02 10:44 | NUR ---
SS following for discharge planning. SS received notification from Karey Becerra and Isaac Sneed declining pt for long-term unit. SS notified [employer]. [employer] reported that they will conference and will notify CM and SS if any decisions made.
[2018-08-02 11:28] VITALS: BP 121/80
--- NOTE | 2018-08-02 11:35 | PDOC ---
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 bleed from [facility]. Found to have duodenal ulcer. No evidence of any new stroke. Chronic right Achilles tendinitis Note cardiology consulted for wide-complex tachycardia Plan I ordered some Voltaren gel for the Achilles tendinitis No additional neurological studies needed Anticoagulation resumption per cardiology and gastroenterology, or consider referral for intervention such as atrial appendage ablation. Continue rehabilitation. Subjective He'd like a topical medication for his chronic right Achilles tendinitis Objective Vital Signs Date Time Temp Pulse Resp B/P (MAP) Pulse Ox O2 Delivery O2 Flow Rate FiO2 08/02/18 11:28 100.4 95 16 121/80 (94) 97 2.0 100.4 08/02/18 11:20 Nasal Cannula Intake and Output 08/02/18 06:59 Intake Total 2120 ml Output Total 350 ml Balance 1770 ml Intake Oral 2120 ml Output Urine Total 350 ml # Voids 6 PHYSICAL EXAM Knows location, not date PERRL. EOMI. CN: left visual inattention, left central facial weakness Muscle tone: normal. Muscle strength: 4/5, weaker on the left DTR: 2+ Plantar reflex: flexor Gait: not examined in bed. Sensory exam: no abnormal findings. No cerebellar signs elicited. Review of Relevant I have reviewed the following items dylan (where applicable) has been applied. Labs Laboratory Tests Test 08/01/18 13:05 08/02/18 05:35 Magnesium Level 2.2 mg/dL (1.8-2.4) White Blood Count 13.6 x10^3/uL (4.0-11.0) Red Blood Count 2.76 x10^6/uL (4.30-5.70) Hemoglobin 8.2 g/dL (13.0-17.5) Hematocrit 24.5 % (39.0-53.0) Mean Corpuscular Volume 89 fL (79-100) Mean Corpuscular Hemoglobin 30 pg (25-35) Mean Corpuscular Hemoglobin Concent 34 g/dL (31-37) Red Cell Distribution Width 15.5 % (11.5-14.5) Platelet Count 312 x10^3/uL (140-400) Neutrophils (%) (Auto) 85 % (31-73) Lymphocytes (%) (Auto) 8 % (24-48) Monocytes (%) (Auto) 6 % (0-9) Eosinophils (%) (Auto) 1 % (0-3) Basophils (%) (Auto) 0 % (0-3) Neutrophils # (Auto) 11.5 x10^3uL (1.8-7.7) Lymphocytes # (Auto) 1.1 x10^3/uL (1.0-4.8) Monocytes # (Auto) 0.9 x10^3/uL (0.0-1.1) Eosinophils # (Auto) 0.1 x10^3/uL (0.0-0.7) Basophils # (Auto) 0.0 x10^3/uL (0.0-0.2) Sodium Level 150 mmol/L (136-145) Potassium Level 4.1 mmol/L (3.5-5.1) Chloride Level 113 mmol/L (98-107) Carbon Dioxide Level 28 mmol/L (21-32) Anion Gap 9 (6-14) Blood Urea Nitrogen 29 mg/dL (8-26) Creatinine 1.8 mg/dL (0.7-1.3) Estimated GFR (Cockcroft-Gault) 37.8 BUN/Creatinine Ratio 16 (6-20) Glucose Level 116 mg/dL (70-99) Calcium Level 8.2 mg/dL (8.5-10.1) Total Bilirubin 0.8 mg/dL (0.2-1.0) Aspartate Amino Transf (AST/SGOT) 107 U/L (15-37) Alanine Aminotransferase (ALT/SGPT) 233 U/L (16-63) Alkaline Phosphatase 169 U/L (46-116) Total Protein 5.8 g/dL (6.4-8.2) Albumin 2.1 g/dL (3.4-5.0) Albumin/Globulin Ratio 0.6 (1.0-1.7) Laboratory Tests Test 08/01/18 13:05 08/02/18 05:35 Magnesium Level 2.2 mg/dL (1.8-2.4) White Blood Count 13.6 x10^3/uL (4.0-11.0) Red Blood Count 2.76 x10^6/uL (4.30-5.70) Hemoglobin 8.2 g/dL (13.0-17.5) Hematocrit 24.5 % (39.0-53.0) Mean Corpuscular Volume 89 fL (79-100) Mean Corpuscular Hemoglobin 30 pg (25-35) Mean Corpuscular Hemoglobin Concent 34 g/dL (31-37) Red Cell Distribution Width 15.5 % (11.5-14.5) Platelet Count 312 x10^3/uL (140-400) Neutrophils (%) (Auto) 85 % (31-73) Lymphocytes (%) (Auto) 8 % (24-48) Monocytes (%) (Auto) 6 % (0-9) Eosinophils (%) (Auto) 1 % (0-3) Basophils (%) (Auto) 0 % (0-3) Neutrophils # (Auto) 11.5 x10^3uL (1.8-7.7) Lymphocytes # (Auto) 1.1 x10^3/uL (1.0-4.8) Monocytes # (Auto) 0.9 x10^3/uL (0.0-1.1) Eosinophils # (Auto) 0.1 x10^3/uL (0.0-0.7) Basophils # (Auto) 0.0 x10^3/uL (0.0-0.2) Sodium Level 150 mmol/L (136-145) Potassium Level 4.1 mmol/L (3.5-5.1) Chloride Level 113 mmol/L (98-107) Carbon Dioxide Level 28 mmol/L (21-32) Anion Gap 9 (6-14) Blood Urea Nitrogen 29 mg/dL (8-26) Creatinine 1.8 mg/dL (0.7-1.3) Estimated GFR (Cockcroft-Gault) 37.8 BUN/Creatinine Ratio 16 (6-20) Glucose Level 116 mg/dL (70-99) Calcium Level 8.2 mg/dL (8.5-10.1) Total Bilirubin 0.8 mg/dL (0.2-1.0) Aspartate Amino Transf (AST/SGOT) 107 U/L (15-37) Alanine Aminotransferase (ALT/SGPT) 233 U/L (16-63) Alkaline Phosphatase 169 U/L (46-116) Total Protein 5.8 g/dL (6.4-8.2) Albumin 2.1 g/dL (3.4-5.0) Albumin/Globulin Ratio 0.6 (1.0-1.7) Medications Current Medications Pantoprazole Sodium (PROTONIX VIAL for IV PUSH) 40 mg 1X ONCE IVP Last administered on 07/27/18at 00:06; Start 07/26/18 at 23:30; Stop 07/26/18 at 23:32; Status DC Sodium Chloride 500 ml @ 500 mls/hr 1X ONCE IV Last administered on 07/26/18at 23:30; Start 07/26/18 at 23:30; Stop 07/27/18 at 00:29; Status DC Sodium Chloride 1,000 ml @ 125 mls/hr Q8H IV ; Start 07/27/18 at 01:00; Stop 07/28/18 at 00:59; Status DC Pantoprazole Sodium 80 mg/ Sodium Chloride 100 ml @ 10 mls/hr Q10H IV Last administered on 07/27/18at 12:13; Start 07/27/18 at 02:00; Stop 07/27/18 at 14:21; Status DC Sodium Chloride 1,000 ml @ 200 mls/hr 1X ONCE IV Last administered on 07/27/18at 02:54; Start 07/27/18 at 02:00; Stop 07/27/18 at 06:59; Status DC Pantoprazole Sodium (Protonix) 40 mg BIDAC PO Last administered on 08/02/18at 09:15; Start 07/27/18 at 16:30 Atorvastatin Calcium (Lipitor) 40 mg QHS PO Last administered on 08/01/18at 21:00; Start 07/27/18 at 21:00 Albuterol/ Ipratropium (Duoneb) 3 ml RTQID NEB Last administered on 08/02/18at 11:20; Start 07/27/18 at 20:00 Nitroglycerin (Nitro-Bid Oint) 0.5 inch Q6HRS TD Last administered on 08/02/18at 05:36; Start 07/27/18 at 18:00 Diltiazem HCl (Cardizem 24hr Cd) 240 mg DAILY PO Last administered on 08/01/18 08:36; Start 07/28/18 at 09:00; Stop 08/01/18 at 15:56; Status DC Fentanyl Citrate (Fentanyl 2ml Vial) 25 mcg PRN Q3HRS PRN IV PAIN Last administ ered on 08/01/18 21:21; Start 07/27/18 at 17:15 Haloperidol Lactate (Haldol Inj) 2 mg PRN Q4HRS PRN IM AGITATION Last administe red on 07/29/18 10:12; Start 07/27/18 at 17:15 Hydralazine HCl (Apresoline Inj) 10 mg PRN Q4HRS PRN IVP give for SBP > 160 Last administered on 08/01/18 00:37; Start 07/27/18 at 17:15 Lorazepam (Ativan Inj) 1 mg PRN Q4HRS PRN IV ANXIETY / AGITATION Last administered on 08/02/18 04:34; Start 07/27/18 at 17:15 Midazolam HCl (Versed) 5 mg STK-MED ONCE .ROUTE ; Start 07/28/18 at 11:23; Stop 07/28/18 at 11:24; Status DC Fentanyl Citrate (Fentanyl 2ml Vial) 100 mcg STK-MED ONCE .ROUTE ; Start 07/28/18 at 11:23; Stop 07/28/18 at 11:24; Status DC Ringer's Solution 1,000 ml @ 75 mls/hr [id number] IV Last administered on 07/31/18 06:00; Start 07/28/18 at 11:30; Stop 07/31/18 at 17:30; Status DC Midazolam HCl (Versed) 5 mg STK-MED ONCE IV Last administered on 07/28/18 11:35; Start 07/28/18 at 11:35; Stop 07/28/18 at 11:45; Status DC Fentanyl Citrate (Fentanyl 2ml Vial) 100 mcg STK-MED ONCE IV Last administered on 07/28/18 11:35; Start 07/28/18 at 11:35; Stop 07/28/18 at 11:45; Status DC Acetaminophen (Tylenol) 650 mg 1X PRN PRN PO PRE-TRANSFUSION Last administered on 07/30/18 10:36; Start 07/30/18 at 07:15; Stop 07/30/18 at 10:36; Status DC Diphenhydramine HCl (Benadryl Oral Elixir) 12.5 mg 1X PRN PRN PO PRE- TRANSFUSION Last administered on 07/30/18at 10:35; Start 07/30/18 at 07:15; Stop 07/30/18 at 10:36; Status DC Polyethylene Glycol (miraLAX PACKET) 17 gm DAILY PO Last administered on 08/02/18at 09:14; Start 07/31/18 at 13:30 Diltiazem HCl (Cardizem 24hr Cd) 300 mg DAILY PO Last administered on 08/02/18at 09:14; Start 08/02/18 at 09:00 Lidocaine (Lidoderm) 1 patch DAILY TD Last administered on 08/02/18at 09:14; Start 08/02/18 at 09:00 Miscellaneous (Lidoderm Patch Removal) 1 ea QHS MC ; Start 08/02/18 at 21:00 Diclofenac Sodium (Voltaren) 1 camilla BID TP Last administered on 08/02/18at 09:15; Start 08/02/18 at 09:00 Bisacodyl (Dulcolax Tab) 10 mg 1X ONCE PO Last administered on 08/02/18at 09:14; Start 08/02/18 at 09:30; Stop 08/02/18 at 09:31; Status DC Active Scripts Active Reported [Lorazepam] 1 Mg IV Q4HRS PRN [Fentanyl] 0.25 Mcg IV Q3HRS PRN [Haldol] 2 Mg IM Q4HRS PRN [Hydralazine] 10 Mg IV Q4HRS PRN Aspirin 325 Mg Tablet 1 Tab PO DAILY Diltiazem 24HR Cd (Diltiazem Hcl) 120 Mg Cap.er.24h 2 Cap PO DAILY [clinimix e/dextrose] 50 Ml IV Nitro-Bid (Nitroglycerin) 1 Gm Oint...g. 0.5 Inch TD Q6HRS Duoneb 0.5-3(2.5) Mg/3 Ml (Albuterol/Ipratropium) 3 Ml Ampul.neb 3 Ml NEB QID Atorvastatin Calcium 40 Mg Tablet 1 Tab PO QHS Vitals/I & O Vital Sign - Last 24 Hours 08/01/18 08/01/18 08/01/18 08/01/18 11:42 14:41 15:00 15:14 Temp 100.5 100.5 Pulse 102 98 Resp 20 B/P (MAP) 127/93 138/83 (101) Pulse Ox 98 91 98 O2 Delivery Room Air Room Air Room Air 08/01/18 08/01/18 08/01/18 08/01/18 15:45 19:00 19:51 20:00 Temp 98.3 97.9 98.3 97.9 Pulse 96 Resp 20 B/P (MAP) 137/88 (104) Pulse Ox 95 97 O2 Delivery Room Air Room Air Room Air 08/01/18 08/01/18 08/01/18 08/01/18 22:30 22:30 23:10 23:10 Temp 97.9 97.9 Pulse 83 84 Resp 36 34 B/P (MAP) 129/73 (91) Pulse Ox 95 O2 Delivery Room Air Room Air Nasal Cannula Room Air O2 Flow Rate 2.0 08/01/18 08/02/18 08/02/18 08/02/18 23:32 00:23 01:18 03:00 Temp 98.1 98.1 Pulse 99 99 99 Resp 22 22 B/P (MAP) 129/73 135/86 (102) Pulse Ox 99 96 O2 Delivery Nasal Cannula Room Air Nasal Cannula O2 Flow Rate 2.0 2.0 08/02/18 08/02/18 08/02/18 08/02/18 05:36 07:00 07:27 08:00 Temp 97.5 97.5 Pulse 99 93 Resp 22 B/P (MAP) 135/86 136/80 (98) Pulse Ox 97 99 O2 Delivery Nasal Cannula Nasal Cannula Nasal Cannula O2 Flow Rate 2.0 2.0 2.0 08/02/18 08/02/18 08/02/18 09:14 11:20 11:28 Temp 100.4 100.4 Pulse 108 95 Resp 16 B/P (MAP) 136/80 121/80 (94) Pulse Ox 96 97 O2 Delivery Nasal Cannula O2 Flow Rate 2.0 2.0 Intake and Output 08/01/18 08/01/18 08/02/18 14:59 22:59 06:59 Intake Total 1440 ml 360 ml 320 ml Output Total 350 ml Balance 1440 ml 10 ml 320 ml APPELBAUM,RAJIV S MD Aug 02, 2018 11:35
--- NOTE | 2018-08-02 13:04 | PDOC ---
PROGRESS NOTES Chief Complaint Chief Complaint plan to DC to LTAC when they have a bed Acute blood loss anemia - with his BUN elevation there is confirmed likely UGIB - EGD - non-erosive gastritis s/p bx and cratered duodenal ulcer with clean base ist portion duodenum, and with hep c history possibly has cirrhosis, transfusion today given h and h result and recommendations from gi oracle endeca consultant, PPI, hold ASA, eliquis Hypernatremia - Likely from poor PO intake, patient is on a honey thick diet. Hopefully he will have an improvement in his intake over the next 24 hours. Recent Acute CVA - Area of acute ischemia/infarction is seen involving portions of the right temporal, right occipital and right frontoparietal lobes as discussed above. This is a right MCA distribution. There is mild surrounding edema without evidence of significant mass effect. was on eliquis. Continue Lipitor 40 mg HS. Hx of PAFIB - needs anticoagulation, but with GI bleeding is on hold. Cardiology to see as well. Likely will need atrial appendage closure device HTN: labile. monitor on meds HLP - cont statin CECIL on CKD stage 4 - likely vasomotor Agitation/Aggressive Behavior - on antipsychotics Weak cough - start nebs today, may need glycopyrrolate Acute/subacute right frontal, parietal, temporal and occipital lobe infarcts. 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 Amphetamine positive. Cannabinoids positive. Obesity. Hep C history - will check viral load FEN - Clear liquid diet PPX - PPI FULL CODE CVC admission for GI bleed,most likely 2/2 UGIB. - PT/OT/ELECTRICAL TESTER BATTERY 37 min pt exam, chart review,> 50% of time spent with exam, chart review, pt care coordination History of Present Illness History of Present Illness Mr. Gutiérrez is a 68 year old M w/ PMHx HTN, HLD, Hep C, admitted for stroke symptoms to [facility] 07/18/18 and discharged to [facility] on 07/25/18. He last used meth prior to admit and smokes marijuana as well. He was seen by cardiology, started on heparin GTT, cardizem GTT for management for his afib, seen by neurology as well, MRI confirmed area of acute ischemia/infarction is seen involving portions of the right temporal, right occipital and right frontoparietal lobes. This is a right MCA distribution. There is mild surrounding edema without evidence of significant mass effect. He was continuing to have difficulty swallowing, GI was consulted for PEG consideration, was on PPN for nearly 1 week for nutrition. Worked with PT/OT/ELECTRICAL TESTER BATTERY daily, was initially confused and agitated, however this improved over the course of 7 days, not requiring haldol and ativan. Has been tolerating ice chips per his well. Up and alert this morning, he is frustrated with his stroke symptoms. Videoswallow showed penetration with honey-thickened liquids. Discussed with he and his bedside. His cough is still very weak. Given nebs with improvement. IS and acapella flutter valve both bedside. had been discharged to [facility] on Eliquis. EGD 07/28/18 with cratered duodenal ulcer noted, PPI continued, started diet confused, agitated, consider LTAC or SNU wide complex tachycardia today, consult CV Vitals Vitals Vital Signs Date Time Temp Pulse Resp B/P (MAP) Pulse Ox O2 Delivery O2 Flow Rate FiO2 08/02/18 11:56 95 121/80 08/02/18 11:28 100.4 16 97 2.0 100.4 08/02/18 11:20 Nasal Cannula Physical Exam General: Alert, Cooperative, No acute distress Lungs: Clear, Other Abdomen: Normal bowel sounds, Soft, No tenderness, No hepatosplenomegaly, No masses Extremities: No clubbing, No cyanosis, No edema, Normal pulses, No tenderness/swelling Skin: No rashes, No breakdown, No significant lesion Labs LABS Laboratory Tests Test 08/01/18 13:05 08/02/18 05:35 Magnesium Level 2.2 mg/dL (1.8-2.4) White Blood Count 13.6 x10^3/uL (4.0-11.0) Red Blood Count 2.76 x10^6/uL (4.30-5.70) Hemoglobin 8.2 g/dL (13.0-17.5) Hematocrit 24.5 % (39.0-53.0) Mean Corpuscular Volume 89 fL (79-100) Mean Corpuscular Hemoglobin 30 pg (25-35) Mean Corpuscular Hemoglobin Concent 34 g/dL (31-37) Red Cell Distribution Width 15.5 % (11.5-14.5) Platelet Count 312 x10^3/uL (140-400) Neutrophils (%) (Auto) 85 % (31-73) Lymphocytes (%) (Auto) 8 % (24-48) Monocytes (%) (Auto) 6 % (0-9) Eosinophils (%) (Auto) 1 % (0-3) Basophils (%) (Auto) 0 % (0-3) Neutrophils # (Auto) 11.5 x10^3uL (1.8-7.7) Lymphocytes # (Auto) 1.1 x10^3/uL (1.0-4.8) Monocytes # (Auto) 0.9 x10^3/uL (0.0-1.1) Eosinophils # (Auto) 0.1 x10^3/uL (0.0-0.7) Basophils # (Auto) 0.0 x10^3/uL (0.0-0.2) Sodium Level 150 mmol/L (136-145) Potassium Level 4.1 mmol/L (3.5-5.1) Chloride Level 113 mmol/L (98-107) Carbon Dioxide Level 28 mmol/L (21-32) Anion Gap 9 (6-14) Blood Urea Nitrogen 29 mg/dL (8-26) Creatinine 1.8 mg/dL (0.7-1.3) Estimated GFR (Cockcroft-Gault) 37.8 BUN/Creatinine Ratio 16 (6-20) Glucose Level 116 mg/dL (70-99) Calcium Level 8.2 mg/dL (8.5-10.1) Total Bilirubin 0.8 mg/dL (0.2-1.0) Aspartate Amino Transf (AST/SGOT) 107 U/L (15-37) Alanine Aminotransferase (ALT/SGPT) 233 U/L (16-63) Alkaline Phosphatase 169 U/L (46-116) Total Protein 5.8 g/dL (6.4-8.2) Albumin 2.1 g/dL (3.4-5.0) Albumin/Globulin Ratio 0.6 (1.0-1.7) Assessment and Plan Assessmemt and Plan Problems Medical Problems: (1) Acute on chronic renal failure Status: Acute (2) Anemia Status: Acute (3) Anticoagulant-induced bleeding Status: Acute (4) Hypoalbuminemia Status: Acute Comment Review of Relevant I have reviewed the following items dylan (where applicable) has been applied. Labs Laboratory Tests Test 6/4/19 13:05 08/02/18 05:35 Magnesium Level 2.2 mg/dL (1.8-2.4) White Blood Count 13.6 x10^3/uL (4.0-11.0) Red Blood Count 2.76 x10^6/uL (4.30-5.70) Hemoglobin 8.2 g/dL (13.0-17.5) Hematocrit 24.5 % (39.0-53.0) Mean Corpuscular Volume 89 fL (79-100) Mean Corpuscular Hemoglobin 30 pg (25-35) Mean Corpuscular Hemoglobin Concent 34 g/dL (31-37) Red Cell Distribution Width 15.5 % (11.5-14.5) Platelet Count 312 x10^3/uL (140-400) Neutrophils (%) (Auto) 85 % (31-73) Lymphocytes (%) (Auto) 8 % (24-48) Monocytes (%) (Auto) 6 % (0-9) Eosinophils (%) (Auto) 1 % (0-3) Basophils (%) (Auto) 0 % (0-3) Neutrophils # (Auto) 11.5 x10^3uL (1.8-7.7) Lymphocytes # (Auto) 1.1 x10^3/uL (1.0-4.8) Monocytes # (Auto) 0.9 x10^3/uL (0.0-1.1) Eosinophils # (Auto) 0.1 x10^3/uL (0.0-0.7) Basophils # (Auto) 0.0 x10^3/uL (0.0-0.2) Sodium Level 150 mmol/L (136-145) Potassium Level 4.1 mmol/L (3.5-5.1) Chloride Level 113 mmol/L (98-107) Carbon Dioxide Level 28 mmol/L (21-32) Anion Gap 9 (6-14) Blood Urea Nitrogen 29 mg/dL (8-26) Creatinine 1.8 mg/dL (0.7-1.3) Estimated GFR (Cockcroft-Gault) 37.8 BUN/Creatinine Ratio 16 (6-20) Glucose Level 116 mg/dL (70-99) Calcium Level 8.2 mg/dL (8.5-10.1) Total Bilirubin 0.8 mg/dL (0.2-1.0) Aspartate Amino Transf (AST/SGOT) 107 U/L (15-37) Alanine Aminotransferase (ALT/SGPT) 233 U/L (16-63) Alkaline Phosphatase 169 U/L (46-116) Total Protein 5.8 g/dL (6.4-8.2) Albumin 2.1 g/dL (3.4-5.0) Albumin/Globulin Ratio 0.6 (1.0-1.7) Laboratory Tests Test 08/01/18 13:05 08/02/18 05:35 Magnesium Level 2.2 mg/dL (1.8-2.4) White Blood Count 13.6 x10^3/uL (4.0-11.0) Red Blood Count 2.76 x10^6/uL (4.30-5.70) Hemoglobin 8.2 g/dL (13.0-17.5) Hematocrit 24.5 % (39.0-53.0) Mean Corpuscular Volume 89 fL (79-100) Mean Corpuscular Hemoglobin 30 pg (25-35) Mean Corpuscular Hemoglobin Concent 34 g/dL (31-37) Red Cell Distribution Width 15.5 % (11.5-14.5) Platelet Count 312 x10^3/uL (140-400) Neutrophils (%) (Auto) 85 % (31-73) Lymphocytes (%) (Auto) 8 % (24-48) Monocytes (%) (Auto) 6 % (0-9) Eosinophils (%) (Auto) 1 % (0-3) Basophils (%) (Auto) 0 % (0-3) Neutrophils # (Auto) 11.5 x10^3uL (1.8-7.7) Lymphocytes # (Auto) 1.1 x10^3/uL (1.0-4.8) Monocytes # (Auto) 0.9 x10^3/uL (0.0-1.1) Eosinophils # (Auto) 0.1 x10^3/uL (0.0-0.7) Basophils # (Auto) 0.0 x10^3/uL (0.0-0.2) Sodium Level 150 mmol/L (136-145) Potassium Level 4.1 mmol/L (3.5-5.1) Chloride Level 113 mmol/L (98-107) Carbon Dioxide Level 28 mmol/L (21-32) Anion Gap 9 (6-14) Blood Urea Nitrogen 29 mg/dL (8-26) Creatinine 1.8 mg/dL (0.7-1.3) Estimated GFR (Cockcroft-Gault) 37.8 BUN/Creatinine Ratio 16 (6-20) Glucose Level 116 mg/dL (70-99) Calcium Level 8.2 mg/dL (8.5-10.1) Total Bilirubin 0.8 mg/dL (0.2-1.0) Aspartate Amino Transf (AST/SGOT) 107 U/L (15-37) Alanine Aminotransferase (ALT/SGPT) 233 U/L (16-63) Alkaline Phosphatase 169 U/L (46-116) Total Protein 5.8 g/dL (6.4-8.2) Albumin 2.1 g/dL (3.4-5.0) Albumin/Globulin Ratio 0.6 (1.0-1.7) Medications Current Medications Pantoprazole Sodium (PROTONIX VIAL for IV PUSH) 40 mg 1X ONCE IVP Last administered on 07/27/18at 00:06; Start 07/26/18 at 23:30; Stop 07/26/18 at 23:32; Status DC Sodium Chloride 500 ml @ 500 mls/hr 1X ONCE IV Last administered on 07/26/18at 23:30; Start 07/26/18 at 23:30; Stop 07/27/18 at 00:29; Status DC Sodium Chloride 1,000 ml @ 125 mls/hr Q8H IV ; Start 07/27/18 at 01:00; Stop 07/28/18 at 00:59; Status DC Pantoprazole Sodium 80 mg/ Sodium Chloride 100 ml @ 10 mls/hr Q10H IV Last administered on 07/27/18at 12:13; Start 07/27/18 at 02:00; Stop 07/27/18 at 14:21; Status DC Sodium Chloride 1,000 ml @ 200 mls/hr 1X ONCE IV Last administered on 07/27/18at 02:54; Start 07/27/18 at 02:00; Stop 07/27/18 at 06:59; Status DC Pantoprazole Sodium (Protonix) 40 mg BIDAC PO Last administered on 08/02/18 09:15; Start 07/27/18 at 16:30 Atorvastatin Calcium (Lipitor) 40 mg QHS PO Last administered on 08/01/18 21:00; Start 07/27/18 at 21:00 Albuterol/ Ipratropium (Duoneb) 3 ml RTQID NEB Last administered on 08/02/18 11 :20; Start 07/27/18 at 20:00 Nitroglycerin (Nitro-Bid Oint) 0.5 inch Q6HRS TD Last administered on 08/02/18 11:56; Start 07/27/18 at 18:00 Diltiazem HCl (Cardizem 24hr Cd) 240 mg DAILY PO Last administered on 08/01/18 08:36; Start 07/28/18 at 09:00; Stop 08/01/18 at 15:56; Status DC Fentanyl Citrate (Fentanyl 2ml Vial) 25 mcg PRN Q3HRS PRN IV PAIN Last administered on 08/01/18 21:21; Start 07/27/18 at 17:15 Haloperidol Lactate (Haldol Inj) 2 mg PRN Q4HRS PRN IM AGITATION Last administered on 07/29/18 10:12; Start 07/27/18 at 17:15 Hydralazine HCl (Apresoline Inj) 10 mg PRN Q4HRS PRN IVP give for SBP > 160 Last administered on 08/01/18 00:37; Start 07/27/18 at 17:15 Lorazepam (Ativan Inj) 1 mg PRN Q4HRS PRN IV ANXIETY / AGITATION Last administered on 08/02/18 04:34; Start 07/27/18 at 17:15 Midazolam HCl (Versed) 5 mg STK-MED ONCE .ROUTE ; Start 07/28/18 at 11:23; Stop 07/28/18 at 11:24; Status DC Fentanyl Citrate (Fentanyl 2ml Vial) 100 mcg STK-MED ONCE .ROUTE ; Start 07/28/18 at 11:23; Stop 07/28/18 at 11:24; Status DC Ringer's Solution 1,000 ml @ 75 mls/hr [id number] IV Last administered on 07/31/18 06:00; Start 07/28/18 at 11:30; Stop 07/31/18 at 17:30; Status DC Midazolam HCl (Versed) 5 mg STK-MED ONCE IV Last administered on 07/28/18 11:35; Start 07/28/18 at 11:35; Stop 07/28/18 at 11:45; Status DC Fentanyl Citrate (Fentanyl 2ml Vial) 100 mcg STK-MED ONCE IV Last administered on 07/28/18 11:35; Start 07/28/18 at 11:35; Stop 07/28/18 at 11:45; Status DC Acetaminophen (Tylenol) 650 mg 1X PRN PRN PO PRE-TRANSFUSION Last administered on 07/30/18 10:36; Start 07/30/18 at 07:15; Stop 07/30/18 at 10:36; Status DC Diphenhydramine HCl (Benadryl Oral Elixir) 12.5 mg 1X PRN PRN PO PRE- TRANSFUSION Last administered on 07/30/18 10:35; Start 07/30/18 at 07:15; Stop 07/30/18 at 10:36; Status DC Polyethylene Glycol (miraLAX PACKET) 17 gm DAILY PO Last administered on 08/02/18 09:14; Start 07/31/18 at 13:30 Diltiazem HCl (Cardizem 24hr Cd) 300 mg DAILY PO Last administered on 08/02/18 09:14; Start 08/02/18 at 09:00 Lidocaine (Lidoderm) 1 patch DAILY TD Last administered on 08/02/18 09:14; Start 08/02/18 at 09:00 Miscellaneous (Lidoderm Patch Removal) 1 ea QHS MC ; Start 08/02/18 at 21:00 Diclofenac Sodium (Voltaren) 1 camilla BID TP Last administered on 08/02/18 09:15; Start 08/02/18 at 09:00 Bisacodyl (Dulcolax Tab) 10 mg 1X ONCE PO Last administered on 08/02/18 09:14; Start 08/02/18 at 09:30; Stop 08/02/18 at 09:31; Status DC Active Scripts Active Reported [Lorazepam] 1 Mg IV Q4HRS PRN [Fentanyl] 0.25 Mcg IV Q3HRS PRN [Haldol] 2 Mg IM Q4HRS PRN [Hydralazine] 10 Mg IV Q4HRS PRN Aspirin 325 Mg Tablet 1 Tab PO DAILY Diltiazem 24HR Cd (Diltiazem Hcl) 120 Mg Cap.er.24h 2 Cap PO DAILY [clinimix e/dextrose] 50 Ml IV Nitro-Bid (Nitroglycerin) 1 Gm Oint...g. 0.5 Inch TD Q6HRS Duoneb 0.5-3(2.5) Mg/3 Ml (Albuterol/Ipratropium) 3 Ml Ampul.neb 3 Ml NEB QID Atorvastatin Calcium 40 Mg Tablet 1 Tab PO QHS Vitals/I & O Vital Sign - Last 24 Hours 08/01/18 08/01/18 08/01/18 08/01/18 14:41 15:00 15:14 15:45 Temp 100.5 98.3 100.5 98.3 Pulse 102 98 Resp 20 B/P (MAP) 127/93 138/83 (101) Pulse Ox 91 98 O2 Delivery Room Air Room Air 08/01/18 08/01/18 08/01/18 08/01/18 19:00 19:51 20:00 22:30 Temp 97.9 97.9 Pulse 96 83 Resp 20 36 B/P (MAP) 137/88 (104) Pulse Ox 95 97 O2 Delivery Room Air Room Air Room Air Room Air 08/01/18 08/01/18 08/01/18 08/01/18 22:30 23:10 23:10 23:32 Temp 97.9 97.9 Pulse 84 99 Resp 34 22 B/P (MAP) 129/73 (91) Pulse Ox 95 99 O2 Delivery Room Air Nasal Cannula Room Air Nasal Cannula O2 Flow Rate 2.0 2.0 08/02/18 08/02/18 08/02/18 08/02/18 00:23 01:18 03:00 05:36 Temp 98.1 98.1 Pulse 99 99 99 Resp 22 B/P (MAP) 129/73 135/86 (102) 135/86 Pulse Ox 96 O2 Delivery Room Air Nasal Cannula O2 Flow Rate 2.0 08/02/18 08/02/18 08/02/18 08/02/18 07:00 07:27 08:00 09:14 Temp 97.5 97.5 Pulse 93 108 Resp 22 B/P (MAP) 136/80 (98) 136/80 Pulse Ox 97 99 O2 Delivery Nasal Cannula Nasal Cannula Nasal Cannula O2 Flow Rate 2.0 2.0 2.0 08/02/18 08/02/18 08/02/18 11:20 11:28 11:56 Temp 100.4 100.4 Pulse 95 95 Resp 16 B/P (MAP) 121/80 (94) 121/80 Pulse Ox 96 97 O2 Delivery Nasal Cannula O2 Flow Rate 2.0 2.0 Intake and Output 08/01/18 08/01/18 08/02/18 15:00 23:00 07:00 Intake Total 1440 ml 360 ml 680 ml Output Total 350 ml 100 ml Balance 1440 ml 10 ml 580 ml Nutrition Consultation Dietary Evaluation: Recommendations by RD: Increase Calorie Intake, Decrease Calorie Intake Comments: REC continue w/Dyspahgia III diet w/Honey thick liquids as ordered today - will not add additional dietary restrictions to promote PO intake Ensure pudding BID on trays Ensure prn, between meals and/or per pt request, thickened on unit Expected Outcomes/Goals: PO intake to meet >75% est needs - met at times, goal ongoing Interpretation of weight loss: >1-2% in 1 week Malnutrition Findings: Food and Nutrition Intake (Sev: <50% est energy req 5days Body Fat Depletion (Non Severe: Mild Depletion Weight Status: Obese SHANTA ARREAGA MD Aug 02, 2018 13:04
[2018-08-02 15:07] VITALS: BP 116/74
--- NOTE | 2018-08-02 15:48 | RAD ---
EXAM: RIGHT UPPER QUADRANT ULTRASOUND. HISTORY: Elevated liver enzymes. COMPARISON: 07/26/2018. FINDINGS: Sonographic evaluation of the right upper quadrant was performed. The liver appears normal in parenchymal echotexture. There are no focal lesions. The gallbladder is surgically absent. There is no sonographic Ivory sign. The common duct measures 7 mm. No cause for distal obstruction is seen. The pancreas is obscured by bowel gas and overlying structures. The right kidney measures 12.4 cm. Increased right renal cortical echogenicity is consistent with intrinsic renal disease. Cortical thickness appears preserved. A right renal cyst appears benign and measures 5.9 x 5.1 cm. There is no hydronephrosis. The visualized portions of the abdominal aorta and inferior vena cava are grossly patent and normal in caliber. IMPRESSION: 1. Increased right renal cortical echogenicity is consistent with intrinsic renal disease. 2. Status post cholecystectomy. The common duct is at the upper limits of normal caliber after cholecystectomy. 3. The pancreas is obscured. It was unremarkable on prior noncontrast CT. Electronically signed by: Radha Christianson MD (08/02/2018 3:45 PM) [facility]
[2018-08-02 19:10] VITALS: BP 141/81
[2018-08-02] MEDS: PATCH REMOVAL. MC SCH (21:00)
[2018-08-02] MEDS: ATORVASTATIN CALCIUM 40 MG TABLET. PO SCH (21:02)
[2018-08-02 23:26] VITALS: BP 141/90
[2018-08-03 03:23] VITALS: BP 139/90
--- NOTE | 2018-08-03 04:19 | NUR ---
Vtach per monitor per NAOMY Bhagat. Patient denies pain, SOA, chest pain. BP 146/90, P 85. Spo2 99 on 2l/nc. New 20g saline lock started left forearm on 1st attempt. Patient requesting orange jello and Pepsi.
[2018-08-03] MEDS: NITROGLYCERIN OINT 1 GM PACKET. TD SCH ×3 (06:00→17:27)
[2018-08-03 06:14] LABS: CALCIUM 8.4 mg/dL (8.5-10.1); CREATININE 1.9 mg/dL (0.7-1.3); DIRECT BILIRUBIN 0.6 mg/dL (0.0-0.2); GFR 35.5; POTASSIUM 3.6 mmol/L (3.5-5.1); TOTAL BILIRUBIN 0.9 mg/dL (0.2-1.0); TOTAL PROTEIN 5.9 g/dL (6.4-8.2)
--- NOTE | 2018-08-03 06:37 | NUR ---
Patient awake for long periods of time during the noc. Hollers out for Pepsi and that he's "thirsty." Has been continent more often than not. No c/o chest pain, in AFib.
[2018-08-03] MEDS: IPRATRPIUM/ALBUTEROL 0.5/2.5MG 3 ML NEBU. NEB SCH ×4 (06:56→20:28)
[2018-08-03 07:00] VITALS: BP 133/81
[2018-08-03] MEDS: PANTOPRAZOLE 40 MG TABLET.DR. PO SCH ×2 (07:39→17:27)
--- NOTE | 2018-08-03 09:28 | PDOC ---
Subjective: Subjective: Denies pain, wants a pop. Breathing "heavy." Objective: Objective: Reviewed w/ RN - breathing seems different today, wondering about aspirating - did not eat well yesterday and has c/o right rib pain "from when he fell at home." Stool charted 08/01. Vital Signs: Vital Signs Date Time Temp Pulse Resp B/P (MAP) Pulse Ox O2 Delivery O2 Flow Rate FiO2 08/03/18 08:26 Nasal Cannula 2.0 08/03/18 07:00 97.7 83 19 133/81 (98) 97 97.7 Labs: Laboratory Tests Test 08/03/18 04:15 Sodium Level 148 mmol/L Potassium Level 3.6 mmol/L Chloride Level 110 mmol/L Carbon Dioxide Level 28 mmol/L Anion Gap 10 Blood Urea Nitrogen 31 mg/dL Creatinine 1.9 mg/dL Estimated GFR (Cockcroft-Gault) 35.5 Glucose Level 121 mg/dL Calcium Level 8.4 mg/dL Total Bilirubin 0.9 mg/dL Direct Bilirubin 0.6 mg/dL Aspartate Amino Transf (AST/SGOT) 95 U/L Alanine Aminotransferase (ALT/SGPT) 222 U/L Alkaline Phosphatase 198 U/L Total Protein 5.9 g/dL Albumin 2.0 g/dL Imaging: US IMPRESSION: 1. Increased right renal cortical echogenicity is consistent with intrinsic renal disease. 2. Status post cholecystectomy. The common duct is at the upper limits of normal caliber after cholecystectomy. 3. The pancreas is obscured. It was unremarkable on prior noncontrast CT. PE: GEN: NAD, was sleeping, breakfast tray untouched LUNGS: NC 2L, clear anteriorly HEART: RRR ABD: NABS, S/ND/NT NEURO/PSYCH: answers appropriately, probably forgetful A/P: Duodenal ulcer Elevated LFTs - US as above -- RN has concern for aspiration - will check CXR, defer any need for repeat PROGRAM TRAINER eval to primary. Reviewed w/ Propeck - follow LFTs. Continue PPI, hold anti-coags. Note he's getting Voltaren - not ideal w/ MARITZA RODRIGUEZ Aug 03, 2018 09:28
[2018-08-03] MEDS: LIDOCAINE (700MG/PATCH) PATCH. TD SCH (10:04)
[2018-08-03] MEDS: DICLOFENAC SODIUM 1% TOPICAL GEL 100GM TUBE. TP SCH ×2 (10:04→20:26)
[2018-08-03] MEDS: POLYETHYLENE GLYCOL 3350 17 GM PACKET. PO SCH (10:04)
[2018-08-03 10:59] VITALS: BP 122/76
--- NOTE | 2018-08-03 11:38 | RAD ---
Portable chest x-ray without comparison for shortness of air. FINDINGS: There may be a right periaortic or infrahilar infiltrate, though this could be spurious on the basis of portable technique and incomplete inspiration. Remaining lung valencia are clear. Heart size is unremarkable. Severe degenerative changes of left shoulder are seen. Impression: 1. Possible right perihilar infiltrate. Electronically signed by: Stanton Poon MD (08/03/2018 11:35 AM) [id number]
--- NOTE | 2018-08-03 14:33 | NUR ---
SS following up with discharge planning. Per insurance request SS re-faxed referral to [facility], and sent a new referral to [facility]. [employer] stated that if Medicare part A pays for room and board for first twenty days BCBS will pay for part B services. Skilled facilities stated concern that [facility] [employer] only covers Part B services for day 21-30 and would like in writing that they would cover part B services for days 1-20. Request made to insurance. SS awaiting acceptance decisions and will proceed accordingly.
--- NOTE | 2018-08-03 14:59 | PDOC ---
PROGRESS NOTES Chief Complaint Chief Complaint plan to DC to LTAC when they have a bed Acute blood loss anemia - with his BUN elevation there is confirmed likely UGIB - EGD - non-erosive gastritis s/p bx and cratered duodenal ulcer with clean base ist portion duodenum, and with hep c history possibly has cirrhosis, transfusion today given h and h result and recommendations from gi lifestyle consultant, PPI, hold ASA, eliquis Hypernatremia - Likely from poor PO intake, patient is on a honey thick diet. Hopefully he will have an improvement in his intake over the next 24 hours. Recent Acute CVA - Area of acute ischemia/infarction is seen involving portions of the right temporal, right occipital and right frontoparietal lobes as discussed above. This is a right MCA distribution. There is mild surrounding edema without evidence of significant mass effect. was on eliquis. Continue Lipitor 40 mg HS. Hx of PAFIB - needs anticoagulation, but with GI bleeding is on hold. Cardiology to see as well. Likely will need atrial appendage closure device HTN: labile. monitor on meds HLP - cont statin CECIL on CKD stage 4 - likely vasomotor Agitation/Aggressive Behavior - on antipsychotics Weak cough - start nebs today, may need glycopyrrolate Acute/subacute right frontal, parietal, temporal and occipital lobe infarcts. 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 Amphetamine positive. Cannabinoids positive. Obesity. Hep C history - will check viral load FEN - Clear liquid diet PPX - PPI FULL CODE CVC admission for GI bleed,most likely 2/2 UGIB. - PT/OT/SUPERVISOR TILE AND MOTTLE 37 min pt exam, chart review,> 50% of time spent with exam, chart review, pt care coordination History of Present Illness History of Present Illness Mr. Gutiérrez is a 68 year old M w/ PMHx HTN, HLD, Hep C, admitted for stroke symptoms to [facility] 07/18/18 and discharged to [facility] on 07/25/18. He last used meth prior to admit and smokes marijuana as well. He was seen by cardiology, started on heparin GTT, cardizem GTT for management for his afib, seen by neurology as well, MRI confirmed area of acute ischemia/infarction is seen involving portions of the right temporal, right occipital and right frontoparietal lobes. This is a right MCA distribution. There is mild surrounding edema without evidence of significant mass effect. He was continuing to have difficulty swallowing, GI was consulted for PEG consideration, was on PPN for nearly 1 week for nutrition. Worked with PT/OT/SUPERVISOR TILE AND MOTTLE daily, was initially confused and agitated, however this improved over the course of 7 days, not requiring haldol and ativan. Has been tolerating ice chips per his well. Up and alert this morning, he is frustrated with his stroke symptoms. Videoswallow showed penetration with honey-thickened liquids. Discussed with he and his bedside. His cough is still very weak. Given nebs with improvement. IS and acapella flutter valve both bedside. had been discharged to [facility] on Eliquis. cratered duodenal ulcer noted on recent EGD confused, agitated,may need LTAC waiting on insurance issues, Vitals Vitals Vital Signs Date Time Temp Pulse Resp B/P (MAP) Pulse Ox O2 Delivery O2 Flow Rate FiO2 08/03/18 12:31 Nasal Cannula 2.0 08/03/18 12:26 94 122/76 08/03/18 10:59 98.0 18 96 98.0 Physical Exam General: Alert, Cooperative, No acute distress Lungs: Clear, Other Abdomen: Normal bowel sounds, Soft, No tenderness, No hepatosplenomegaly, No masses Extremities: No clubbing, No cyanosis, No edema, Normal pulses, No tenderness/swelling Skin: No rashes, No breakdown, No significant lesion Labs LABS Laboratory Tests Test 08/03/18 04:15 Sodium Level 148 mmol/L (136-145) Potassium Level 3.6 mmol/L (3.5-5.1) Chloride Level 110 mmol/L (98-107) Carbon Dioxide Level 28 mmol/L (21-32) Anion Gap 10 (6-14) Blood Urea Nitrogen 31 mg/dL (8-26) Creatinine 1.9 mg/dL (0.7-1.3) Estimated GFR (Cockcroft-Gault) 35.5 Glucose Level 121 mg/dL (70-99) Calcium Level 8.4 mg/dL (8.5-10.1) Total Bilirubin 0.9 mg/dL (0.2-1.0) Direct Bilirubin 0.6 mg/dL (0.0-0.2) Aspartate Amino Transf (AST/SGOT) 95 U/L (15-37) Alanine Aminotransferase (ALT/SGPT) 222 U/L (16-63) Alkaline Phosphatase 198 U/L (46-116) Total Protein 5.9 g/dL (6.4-8.2) Albumin 2.0 g/dL (3.4-5.0) Assessment and Plan Assessmemt and Plan Problems Medical Problems: (1) Acute on chronic renal failure Status: Acute (2) Anemia Status: Acute (3) Anticoagulant-induced bleeding Status: Acute (4) Hypoalbuminemia Status: Acute Comment Review of Relevant I have reviewed the following items dylan (where applicable) has been applied. Labs Laboratory Tests Test 08/02/18 05:35 08/03/18 04:15 White Blood Count 13.6 x10^3/uL (4.0-11.0) Red Blood Count 2.76 x10^6/uL (4.30-5.70) Hemoglobin 8.2 g/dL (13.0-17.5) Hematocrit 24.5 % (39.0-53.0) Mean Corpuscular Volume 89 fL (79-100) Mean Corpuscular Hemoglobin 30 pg (25-35) Mean Corpuscular Hemoglobin Concent 34 g/dL (31-37) Red Cell Distribution Width 15.5 % (11.5-14.5) Platelet Count 312 x10^3/uL (140-400) Neutrophils (%) (Auto) 85 % (31-73) Lymphocytes (%) (Auto) 8 % (24-48) Monocytes (%) (Auto) 6 % (0-9) Eosinophils (%) (Auto) 1 % (0-3) Basophils (%) (Auto) 0 % (0-3) Neutrophils # (Auto) 11.5 x10^3uL (1.8-7.7) Lymphocytes # (Auto) 1.1 x10^3/uL (1.0-4.8) Monocytes # (Auto) 0.9 x10^3/uL (0.0-1.1) Eosinophils # (Auto) 0.1 x10^3/uL (0.0-0.7) Basophils # (Auto) 0.0 x10^3/uL (0.0-0.2) Sodium Level 150 mmol/L (136-145) 148 mmol/L (136-145) Potassium Level 4.1 mmol/L (3.5-5.1) 3.6 mmol/L (3.5-5.1) Chloride Level 113 mmol/L (98-107) 110 mmol/L (98-107) Carbon Dioxide Level 28 mmol/L (21-32) 28 mmol/L (21-32) Anion Gap 9 (6-14) 10 (6-14) Blood Urea Nitrogen 29 mg/dL (8-26) 31 mg/dL (8-26) Creatinine 1.8 mg/dL (0.7-1.3) 1.9 mg/dL (0.7-1.3) Estimated GFR (Cockcroft-Gault) 37.8 35.5 BUN/Creatinine Ratio 16 (6-20) Glucose Level 116 mg/dL (70-99) 121 mg/dL (70-99) Calcium Level 8.2 mg/dL (8.5-10.1) 8.4 mg/dL (8.5-10.1) Total Bilirubin 0.8 mg/dL (0.2-1.0) 0.9 mg/dL (0.2-1.0) Aspartate Amino Transf (AST/SGOT) 107 U/L (15-37) 95 U/L (15-37) Alanine Aminotransferase (ALT/SGPT) 233 U/L (16-63) 222 U/L (16-63) Alkaline Phosphatase 169 U/L (46-116) 198 U/L (46-116) Total Protein 5.8 g/dL (6.4-8.2) 5.9 g/dL (6.4-8.2) Albumin 2.1 g/dL (3.4-5.0) 2.0 g/dL (3.4-5.0) Albumin/Globulin Ratio 0.6 (1.0-1.7) Direct Bilirubin 0.6 mg/dL (0.0-0.2) Laboratory Tests Test 08/03/18 04:15 Sodium Level 148 mmol/L (136-145) Potassium Level 3.6 mmol/L (3.5-5.1) Chloride Level 110 mmol/L (98-107) Carbon Dioxide Level 28 mmol/L (21-32) Anion Gap 10 (6-14) Blood Urea Nitrogen 31 mg/dL (8-26) Creatinine 1.9 mg/dL (0.7-1.3) Estimated GFR (Cockcroft-Gault) 35.5 Glucose Level 121 mg/dL (70-99) Calcium Level 8.4 mg/dL (8.5-10.1) Total Bilirubin 0.9 mg/dL (0.2-1.0) Direct Bilirubin 0.6 mg/dL (0.0-0.2) Aspartate Amino Transf (AST/SGOT) 95 U/L (15-37) Alanine Aminotransferase (ALT/SGPT) 222 U/L (16-63) Alkaline Phosphatase 198 U/L (46-116) Total Protein 5.9 g/dL (6.4-8.2) Albumin 2.0 g/dL (3.4-5.0) Medications Current Medications Pantoprazole Sodium (PROTONIX VIAL for IV PUSH) 40 mg 1X ONCE IVP Last administered on 07/27/18at 00:06; Start 07/26/18 at 23:30; Stop 07/26/18 at 23:32; Status DC Sodium Chloride 500 ml @ 500 mls/hr 1X ONCE IV Last administered on 07/26/18at 23:30; Start 07/26/18 at 23:30; Stop 07/27/18 at 00:29; Status DC Sodium Chloride 1,000 ml @ 125 mls/hr Q8H IV ; Start 07/27/18 at 01:00; Stop 07/28/18 at 00:59; Status DC Pantoprazole Sodium 80 mg/ Sodium Chloride 100 ml @ 10 mls/hr Q10H IV Last administered on 07/27/18at 12:13; Start 07/27/18 at 02:00; Stop 07/27/18 at 14:21; Status DC Sodium Chloride 1,000 ml @ 200 mls/hr 1X ONCE IV Last administered on 07/27/18at 02:54; Start 07/27/18 at 02:00; Stop 07/27/18 at 06:59; Status DC Pantoprazole Sodium (Protonix) 40 mg BIDAC PO Last administered on 08/03/18at 07:39; Start 07/27/18 at 16:30 Atorvastatin Calcium (Lipitor) 40 mg QHS PO Last administered on 08/02/18at 21:02; Start 07/27/18 at 21:00 Albuterol/ Ipratropium (Duoneb) 3 ml RTQID NEB Last administered on 08/03/18 12:30; Start 07/27/18 at 20:00 Nitroglycerin (Nitro-Bid Oint) 0.5 inch Q6HRS TD Last administered on 08/03/18 12:26; Start 07/27/18 at 18:00 Diltiazem HCl (Cardizem 24hr Cd) 240 mg DAILY PO Last administered on 08/01/18 08:36; Start 07/28/18 at 09:00; Stop 08/01/18 at 15:56; Status DC Fentanyl Citrate (Fentanyl 2ml Vial) 25 mcg PRN Q3HRS PRN IV PAIN Last administered on 08/01/18 21:21; Start 07/27/18 at 17:15 Haloperidol Lactate (Haldol Inj) 2 mg PRN Q4HRS PRN IM AGITATION Last administered on 07/29/18 10:12; Start 07/27/18 at 17:15 Hydralazine HCl (Apresoline Inj) 10 mg PRN Q4HRS PRN IVP give for SBP > 160 Last administered on 08/01/18 00:37; Start 07/27/18 at 17:15 Lorazepam (Ativan Inj) 1 mg PRN Q4HRS PRN IV ANXIETY / AGITATION Last administered on 08/02/18 04:34; Start 07/27/18 at 17:15 Midazolam HCl (Versed) 5 mg STK-MED ONCE .ROUTE ; Start 07/28/18 at 11:23; Stop 07/28/18 at 11:24; Status DC Fentanyl Citrate (Fentanyl 2ml Vial) 100 mcg STK-MED ONCE .ROUTE ; Start 07/28/18 at 11:23; Stop 07/28/18 at 11:24; Status DC Ringer's Solution 1,000 ml @ 75 mls/hr [id number] IV Last administered on 07/31/18 06:00; Start 07/28/18 at 11:30; Stop 07/31/18 at 17:30; Status DC Midazolam HCl (Versed) 5 mg STK-MED ONCE IV Last administered on 07/28/18at 11:35; Start 07/28/18 at 11:35; Stop 07/28/18 at 11:45; Status DC Fentanyl Citrate (Fentanyl 2ml Vial) 100 mcg STK-MED ONCE IV Last administered on 07/28/18 11:35; Start 07/28/18 at 11:35; Stop 07/28/18 at 11:45; Status DC Acetaminophen (Tylenol) 650 mg 1X PRN PRN PO PRE-TRANSFUSION Last administered on 07/30/18 10:36; Start 07/30/18 at 07:15; Stop 07/30/18 at 10:36; Status DC Diphenhydramine HCl (Benadryl Oral Elixir) 12.5 mg 1X PRN PRN PO PRE- TRANSFUSION Last administered on 07/30/18 10:35; Start 07/30/18 at 07:15; Stop 07/30/18 at 10:36; Status DC Polyethylene Glycol (miraLAX PACKET) 17 gm DAILY PO Last administered on 08/03/18 10:04; Start 07/31/18 at 13:30 Diltiazem HCl (Cardizem 24hr Cd) 300 mg DAILY PO Last administered on 08/03/18 10:04; Start 08/02/18 at 09:00 Lidocaine (Lidoderm) 1 patch DAILY TD Last administered on 08/03/18 10:04; Start 08/02/18 at 09:00 Miscellaneous (Lidoderm Patch Removal) 1 ea QHS MC Last administered on 08/02/18 21:00; Start 08/02/18 at 21:00 Diclofenac Sodium (Voltaren) 1 camilla BID TP Last administered on 08/03/18 10:04; Start 08/02/18 at 09:00 Bisacodyl (Dulcolax Tab) 10 mg 1X ONCE PO Last administered on 08/02/18 09:14; Start 08/02/18 at 09:30; Stop 08/02/18 at 09:31; Status DC Active Scripts Active Reported [Lorazepam] 1 Mg IV Q4HRS PRN [Fentanyl] 0.25 Mcg IV Q3HRS PRN [Haldol] 2 Mg IM Q4HRS PRN [Hydralazine] 10 Mg IV Q4HRS PRN Aspirin 325 Mg Tablet 1 Tab PO DAILY Diltiazem 24HR Cd (Diltiazem Hcl) 120 Mg Cap.er.24h 2 Cap PO DAILY [clinimix e/dextrose] 50 Ml IV Nitro-Bid (Nitroglycerin) 1 Gm Oint...g. 0.5 Inch TD Q6HRS Duoneb 0.5-3(2.5) Mg/3 Ml (Albuterol/Ipratropium) 3 Ml Ampul.neb 3 Ml NEB QID Atorvastatin Calcium 40 Mg Tablet 1 Tab PO QHS Vitals/I & O Vital Sign - Last 24 Hours 08/02/18 08/02/18 08/02/18 08/02/18 15:07 15:32 17:38 19:10 Temp 99.6 100.6 99.6 100.6 Pulse 103 95 87 Resp 18 20 B/P (MAP) 116/74 (88) 116/74 141/81 (101) Pulse Ox 97 98 100 O2 Delivery Nasal Cannula Nasal Cannula BiPAP/CPAP O2 Flow Rate 2.0 2.0 2.0 08/02/18 08/02/18 08/02/18 08/02/18 19:40 20:00 23:26 23:46 Temp 98.9 98.9 Pulse 106 106 Resp 20 B/P (MAP) 141/90 (107) 141/90 Pulse Ox 97 95 O2 Delivery Nasal Cannula Nasal Cannula Nasal Cannula O2 Flow Rate 2.0 2.0 2.0 08/03/18 08/03/18 08/03/18 08/03/18 00:29 03:23 06:00 06:56 Temp 97.9 97.9 Pulse 85 92 Resp 19 B/P (MAP) 139/90 (106) 139/90 Pulse Ox 99 98 O2 Delivery Nasal Cannula Nasal Cannula Nasal Cannula O2 Flow Rate 2.0 2.0 2.0 08/03/18 08/03/18 08/03/18 08/03/18 07:00 08:26 10:04 10:59 Temp 97.7 98.0 97.7 98.0 Pulse 83 99 94 Resp 19 18 B/P (MAP) 133/81 (98) 133/81 122/76 (91) Pulse Ox 97 96 O2 Delivery Nasal Cannula Nasal Cannula Nasal Cannula O2 Flow Rate 2.0 2.0 2.0 08/03/18 08/03/18 12:26 12:31 Pulse 94 B/P (MAP) 122/76 O2 Delivery Nasal Cannula O2 Flow Rate 2.0 Intake and Output 08/02/18 08/02/18 08/03/18 15:00 23:00 07:00 Intake Total 720 ml 220 ml 820 ml Output Total 180 ml 200 ml 850 ml Balance 540 ml 20 ml -30 ml Nutrition Consultation Dietary Evaluation: Recommendations by RD: Increase Calorie Intake, Decrease Calorie Intake Comments: REC continue w/Dyspahgia III diet w/Honey thick liquids as ordered today - will not add additional dietary restrictions to promote PO intake Ensure pudding BID on trays Ensure prn, between meals and/or per pt request, thickened on unit Expected Outcomes/Goals: PO intake to meet >75% est needs - met at times, goal ongoing Interpretation of weight loss: >1-2% in 1 week Malnutrition Findings: Food and Nutrition Intake (Sev: <50% est energy req 5days Body Fat Depletion (Non Severe: Mild Depletion Weight Status: Obese SHANTA ARREAGA MD Aug 03, 2018 14:59
[2018-08-03 15:00] VITALS: BP 120/94
[2018-08-03 19:00] VITALS: BP 118/85
[2018-08-03] MEDS ORDERED: ACETAMINOPHEN 325 MG TABLET. PO ONE (19:30)
[2018-08-03] MEDS: ATORVASTATIN CALCIUM 40 MG TABLET. PO SCH (20:26)
[2018-08-03] MEDS: PATCH REMOVAL. MC SCH (21:00)
[2018-08-03 23:01] VITALS: BP 138/93
[2018-08-04 02:45] VITALS: BP 135/89
[2018-08-04] MEDS: NITROGLYCERIN OINT 1 GM PACKET. TD SCH ×2 (05:23→12:16)
[2018-08-04 07:24] VITALS: BP 133/80
[2018-08-04] MEDS: PANTOPRAZOLE 40 MG TABLET.DR. PO SCH ×2 (08:20→16:54)
[2018-08-04] MEDS: POLYETHYLENE GLYCOL 3350 17 GM PACKET. PO SCH (08:21)
[2018-08-04] MEDS: DICLOFENAC SODIUM 1% TOPICAL GEL 100GM TUBE. TP SCH (08:21)
[2018-08-04] MEDS: LIDOCAINE (700MG/PATCH) PATCH. TD SCH (08:22)
--- NOTE | 2018-08-04 09:04 | PDOC ---
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 bleed from [facility]. Found to have duodenal ulcer. No evidence of any new stroke. Chronic right Achilles tendinitis, better with Voltaren Note cardiology consulted for wide-complex tachycardia Complains of dysphagia, solids>liquids Plan Speech eval No additional neurological studies needed Anticoagulation resumption per cardiology and gastroenterology, or consider referral for intervention such as atrial appendage ablation. Continue rehabilitation. Discussed with daughter Subjective dysphagia, no pain Objective Vital Signs Date Time Temp Pulse Resp B/P (MAP) Pulse Ox O2 Delivery O2 Flow Rate FiO2 08/04/18 08:21 100 133/80 08/04/18 07:24 97.5 20 96 Room Air 97.5 08/03/18 20:00 2.0 Intake and Output 08/04/18 07:00 Intake Total 1580 ml Output Total 300 ml Balance 1280 ml Intake Oral 1580 ml Output Urine Total 300 ml # Voids 8 PHYSICAL EXAM Knows location, not date PERRL. EOMI. CN: left visual inattention, left central facial weakness Muscle tone: normal. Muscle strength: 4/5, weaker on the left DTR: 2+ Plantar reflex: flexor Gait: not examined in bed. Sensory exam: no abnormal findings. No cerebellar signs elicited. Review of Relevant I have reviewed the following items dylan (where applicable) has been applied. Labs Laboratory Tests Test 08/03/18 04:15 Sodium Level 148 mmol/L (136-145) Potassium Level 3.6 mmol/L (3.5-5.1) Chloride Level 110 mmol/L (98-107) Carbon Dioxide Level 28 mmol/L (21-32) Anion Gap 10 (6-14) Blood Urea Nitrogen 31 mg/dL (8-26) Creatinine 1.9 mg/dL (0.7-1.3) Estimated GFR (Cockcroft-Gault) 35.5 Glucose Level 121 mg/dL (70-99) Calcium Level 8.4 mg/dL (8.5-10.1) Total Bilirubin 0.9 mg/dL (0.2-1.0) Direct Bilirubin 0.6 mg/dL (0.0-0.2) Aspartate Amino Transf (AST/SGOT) 95 U/L (15-37) Alanine Aminotransferase (ALT/SGPT) 222 U/L (16-63) Alkaline Phosphatase 198 U/L (46-116) Total Protein 5.9 g/dL (6.4-8.2) Albumin 2.0 g/dL (3.4-5.0) Medications Current Medications Pantoprazole Sodium (PROTONIX VIAL for IV PUSH) 40 mg 1X ONCE IVP Last administered on 07/27/18at 00:06; Start 07/26/18 at 23:30; Stop 07/26/18 at 23:32; Status DC Sodium Chloride 500 ml @ 500 mls/hr 1X ONCE IV Last administered on 07/26/18at 23:30; Start 07/26/18 at 23:30; Stop 07/27/18 at 00:29; Status DC Sodium Chloride 1,000 ml @ 125 mls/hr Q8H IV ; Start 07/27/18 at 01:00; Stop 07/28/18 at 00:59; Status DC Pantoprazole Sodium 80 mg/ Sodium Chloride 100 ml @ 10 mls/hr Q10H IV Last administered on 07/27/18at 12:13; Start 07/27/18 at 02:00; Stop 07/27/18 at 14:21; Status DC Sodium Chloride 1,000 ml @ 200 mls/hr 1X ONCE IV Last administered on 07/27/18at 02:54; Start 07/27/18 at 02:00; Stop 07/27/18 at 06:59; Status DC Pantoprazole Sodium (Protonix) 40 mg BIDAC PO Last administered on 08/04/18 08:20; Start 07/27/18 at 16:30 Atorvastatin Calcium (Lipitor) 40 mg QHS PO Last administered on 08/03/18 20:26; Start 07/27/18 at 21:00 Albuterol/ Ipratropium (Duoneb) 3 ml RTQID NEB Last administered on 08/03/18 20:28; Start 07/27/18 at 20:00 Nitroglycerin (Nitro-Bid Oint) 0.5 inch Q6HRS TD Last administered on 08/04/18at 05:23; Start 07/27/18 at 18:00 Diltiazem HCl (Cardizem 24hr Cd) 240 mg DAILY PO Last administered on 08/01/18 08:36; Start 07/28/18 at 09:00; Stop 08/01/18 at 15:56; Status DC Fentanyl Citrate (Fentanyl 2ml Vial) 25 mcg PRN Q3HRS PRN IV PAIN Last administered on 08/01/18 21:21; Start 07/27/18 at 17:15 Haloperidol Lactate (Haldol Inj) 2 mg PRN Q4HRS PRN IM AGITATION Last administered on 07/29/18 10:12; Start 07/27/18 at 17:15 Hydralazine HCl (Apresoline Inj) 10 mg PRN Q4HRS PRN IVP give for SBP > 160 Last administered on 08/01/18 00:37; Start 07/27/18 at 17:15 Lorazepam (Ativan Inj) 1 mg PRN Q4HRS PRN IV ANXIETY / AGITATION Last administered on 08/02/18 04:34; Start 07/27/18 at 17:15 Midazolam HCl (Versed) 5 mg STK-MED ONCE .ROUTE ; Start 07/28/18 at 11:23; Stop 07/28/18 at 11:24; Status DC Fentanyl Citrate (Fentanyl 2ml Vial) 100 mcg STK-MED ONCE .ROUTE ; Start 07/28/18 at 11:23; Stop 07/28/18 at 11:24; Status DC Ringer's Solution 1,000 ml @ 75 mls/hr [id number] IV Last administered on 07/31/18at 06:00; Start 07/28/18 at 11:30; Stop 07/31/18 at 17:30; Status DC Midazolam HCl (Versed) 5 mg STK-MED ONCE IV Last administered on 07/28/18at 11:35; Start 07/28/18 at 11:35; Stop 07/28/18 at 11:45; Status DC Fentanyl Citrate (Fentanyl 2ml Vial) 100 mcg STK-MED ONCE IV Last administered on 07/28/18at 11:35; Start 07/28/18 at 11:35; Stop 07/28/18 at 11:45; Status DC Acetaminophen (Tylenol) 650 mg 1X PRN PRN PO PRE-TRANSFUSION Last administered on 07/30/18 10:36; Start 07/30/18 at 07:15; Stop 07/30/18 at 10:36; Status DC Diphenhydramine HCl (Benadryl Oral Elixir) 12.5 mg 1X PRN PRN PO PRE- TRANSFUSION Last administered on 07/30/18 10:35; Start 07/30/18 at 07:15; Stop 07/30/18 at 10:36; Status DC Polyethylene Glycol (miraLAX PACKET) 17 gm DAILY PO Last administered on 08/04/18 08:21; Start 07/31/18 at 13:30 Diltiazem HCl (Cardizem 24hr Cd) 300 mg DAILY PO Last administered on 08/04/18 08:21; Start 08/02/18 at 09:00 Lidocaine (Lidoderm) 1 patch DAILY TD Last administered on 08/04/18 08:22; Start 08/02/18 at 09:00 Miscellaneous (Lidoderm Patch Removal) 1 ea QHS MC Last administered on 08/03/18 21:00; Start 08/02/18 at 21:00 Diclofenac Sodium (Voltaren) 1 camilla BID TP Last administered on 08/04/18 08:21; Start 08/02/18 at 09:00 Bisacodyl (Dulcolax Tab) 10 mg 1X ONCE PO Last administered on 08/02/18 09:14; Start 08/02/18 at 09:30; Stop 08/02/18 at 09:31; Status DC Acetaminophen (Tylenol) 325 mg 1X ONCE PO Last administered on 08/03/18 20:27; Start 08/03/18 at 19:30; Stop 08/03/18 at 19:31; Status DC Active Scripts Active Reported [Lorazepam] 1 Mg IV Q4HRS PRN [Fentanyl] 0.25 Mcg IV Q3HRS PRN [Haldol] 2 Mg IM Q4HRS PRN [Hydralazine] 10 Mg IV Q4HRS PRN Aspirin 325 Mg Tablet 1 Tab PO DAILY Diltiazem 24HR Cd (Diltiazem Hcl) 120 Mg Cap.er.24h 2 Cap PO DAILY [clinimix e/dextrose] 50 Ml IV Nitro-Bid (Nitroglycerin) 1 Gm Oint...g. 0.5 Inch TD Q6HRS Duoneb 0.5-3(2.5) Mg/3 Ml (Albuterol/Ipratropium) 3 Ml Ampul.neb 3 Ml NEB QID Atorvastatin Calcium 40 Mg Tablet 1 Tab PO QHS Vitals/I & O Vital Sign - Last 24 Hours 08/03/18 08/03/18 08/03/18 08/03/18 10:04 10:59 12:26 12:31 Temp 98.0 98.0 Pulse 99 94 94 Resp 18 B/P (MAP) 133/81 122/76 (91) 122/76 Pulse Ox 96 O2 Delivery Nasal Cannula Nasal Cannula O2 Flow Rate 2.0 2.0 08/03/18 08/03/18 08/03/18 08/03/18 15:00 15:50 17:27 19:00 Temp 97.7 97.9 97.7 97.9 Pulse 95 106 102 Resp 18 20 B/P (MAP) 120/94 (103) 120/94 118/85 (96) Pulse Ox 94 97 95 O2 Delivery Nasal Cannula Room Air Room Air O2 Flow Rate 2.0 08/03/18 08/03/18 08/03/18 08/04/18 20:00 20:26 23:01 02:45 Temp 98.2 98.0 98.2 98.0 Pulse 92 90 Resp 18 20 B/P (MAP) 138/93 (108) 135/89 (104) Pulse Ox 94 92 O2 Delivery Nasal Cannula Room Air Room Air Room Air O2 Flow Rate 2.0 08/04/18 08/04/18 08/04/18 08/04/18 05:23 05:23 07:24 08:21 Temp 97.5 97.5 Pulse 90 64 100 100 Resp 20 B/P (MAP) 135/89 133/80 (97) 133/80 Pulse Ox 96 O2 Delivery Room Air Intake and Output 08/03/18 08/03/18 08/04/18 15:00 23:00 07:00 Intake Total 840 ml 740 ml Output Total 300 ml Balance 840 ml 740 ml -300 ml RAJIV GARRISON MD Aug 04, 2018 09:04
[2018-08-04 09:17] LABS: HEMOGLOBIN 8.1 g/dL (13.0-17.5); RED BLOOD COUNT 2.82 x10^6/uL (4.30-5.70); RED CELL DISTRIBUTION WIDTH 15.4 % (11.5-14.5); WHITE BLOOD COUNT 12.4 x10^3/uL (4.0-11.0)
--- NOTE | 2018-08-04 09:43 | PDOC ---
Subjective: Subjective: Very talkative today, much more alert. Tolerating PO, says he's farting a lot. present. Objective: Objective: Note orders for [employer] to see again. Vital Signs: Vital Signs Date Time Temp Pulse Resp B/P (MAP) Pulse Ox O2 Delivery O2 Flow Rate FiO2 08/04/18 08:21 100 133/80 08/04/18 07:24 97.5 20 96 Room Air 97.5 08/03/18 20:00 2.0 Imaging: CXR 08/03 Impression: 1. Possible right perihilar infiltrate. PE: GEN: NAD, eating with enthusiasm LUNGS: CTAB HEART: RRR ABD: S/ND/NT NEURO/PSYCH: awake and alert, very talkative A/P: Duodenal ulcer Elevated LFTs Recent CVA, A Fib - anti-coags on hold, on dysphagia diet -- Mental status better today. Labs pending. MARITZA STAUFFER Aug 04, 2018 09:42
[2018-08-04] MEDS ORDERED: BISACODYL 5 MG TABLET.DR. PO PRN (09:45)
[2018-08-04] MEDS: IPRATRPIUM/ALBUTEROL 0.5/2.5MG 3 ML NEBU. NEB SCH ×3 (09:48→16:02)
[2018-08-04] MEDS ORDERED: POLYETHYLENE GLYCOL 3350 17 GM PACKET. PO SCH (10:00)
[2018-08-04 10:05] LABS: ALBUMIN/GLOBULIN RATIO 0.5 (1.0-1.7); CALCIUM 8.5 mg/dL (8.5-10.1); CREATININE 1.8 mg/dL (0.7-1.3); GFR 37.8; POTASSIUM 4.1 mmol/L (3.5-5.1); TOTAL BILIRUBIN 0.8 mg/dL (0.2-1.0)
[2018-08-04 10:53] VITALS: BP 183/88
--- NOTE | 2018-08-04 10:56 | NUR ---
SS following up with discharge planning. Reva came to the hospital and assessed pt at bedside. Reva reported that pt is clinically accepted. They reported that they contacted [facility] and Medicare. Medicare reported to them that they cannot cover alf unit as they are not primary. They reported that [facility] will need to cover alf unit. Reva contacted [facility] and made request. [facility] denied Reva's request for alf unit. Nichole in case management notified. [facility] continuing to decline LTAC as well. Requesting assistance from SS supervisor throwing department and administration to assist with BCBS as pt is unsafe to return to home without rehabilitation services.
[2018-08-04] MEDS ORDERED: Pantoprazole PO (12:09)
[2018-08-04] MEDS ORDERED: LIDO700A39 TD (12:09)
[2018-08-04] MEDS ORDERED: POLY17PO28 PO (12:09)
[2018-08-04] MEDS ORDERED: DILT300C24 PO (12:09)
--- NOTE | 2018-08-04 12:10 | SNU/HH DC ---
DISCHARGE ORDERS DISCHARGE INFORMATION: DISCHARGE DATE: Aug 04, 2018 FINAL DIAGNOSIS Problems Medical Problems: (1) Acute on chronic renal failure Status: Acute (2) Anemia Status: Acute (3) Anticoagulant-induced bleeding Status: Acute (4) Hypoalbuminemia Status: Acute CONDITION ON DISCHARGE: Stable CODE STATUS: Code Status: Full LTAC: ADMIT TO LTAC: Yes POST DISCHARGE ORDERS: ACTIVITY ORDERS: Activity as tolerated WEIGHT BEARING STATUS: Full weight bearing DIET AFTER DISCHARGE: Dysphagia II, honey-thickened liquids CHECKS AFTER DISCHARGE: CHECKS AFTER DISCHARGE: Check blood press - daily FOLLOW-UP: PHYSICIAN FOLLOW-UP: cardiac, primary at LTAC LAB ORDERS FOR FOLLOW-UP: BMP, CBC Daily TREATMENT/EQUIPMENT ORDERS: ADAPTIVE EQUIPMENT NEEDED: Front wheeled walker RESPIRATORY EQUIPMENT NEEDED: Oxygen Physical Therapy For: Evalulation/Treatment Occupational Therapy For: Evaluation/Treatment Speech Language Pathology For: Evaluation/Treatment DISCHARGE MEDICATIONS: Home Meds Reported Medications [Lorazepam] No Conflict Check, 1 MG IV Q4HRS PRN for ANXIETY / AGITATION 07/27/18 [Fentanyl] No Conflict Check, 0.25 MCG IV Q3HRS PRN for PAIN 07/27/18 [Haldol] No Conflict Check, 2 MG IM Q4HRS PRN for agitation 07/27/18 [Hydralazine] No Conflict Check, 10 MG IV Q4HRS PRN for htn 07/27/18 Aspirin (ASPIRIN) 325 Mg Tablet, 1 TAB PO DAILY for dx cva, #30 TAB 5 Refills 07/27/18 Diltiazem Hcl (DILTIAZEM 24HR CD) 120 Mg Cap.er.24h, 2 CAP PO DAILY for htn, #90 CAP 1 Refill 07/27/18 [clinimix e/dextrose] No Conflict Check, 50 ML IV for nutrition 07/27/18 Nitroglycerin (NITRO-BID) 1 Gm Oint...g., 0.5 INCH TD Q6HRS for bp/pain, MISC 07/27/18 Ipratropium/Albuterol Sulfate (DUONEB 0.5-3(2.5) MG/3 ML) 3 Ml Ampul.neb, 3 ML NEB QID for sob, EACH 07/27/18 Atorvastatin Calcium (ATORVASTATIN CALCIUM) 40 Mg Tablet, 1 TAB PO QHS for cholesterol, #90 TAB 3 Refills 07/27/18 SHANTA ARREAGA MD Aug 04, 2018 12:10
[2018-08-04 12:16] VITALS: BP 183/88
--- NOTE | 2018-08-04 12:31 | NUR ---
SS following up with discharge planning. [facility] contacted case management and notified that pt is now authorized for [facility], ; fax [phone]. SS phoned and faxed clinical updates to [facility]. SS awaiting bed availability at this time. Physician notified. Pt, pt's RN, and pt's family notified.
--- NOTE | 2018-08-04 13:03 | PDOC ---
PROGRESS NOTES Chief Complaint Chief Complaint plan to DC to LTAC when they have a bed Acute blood loss anemia - with his BUN elevation there is confirmed likely UGIB - EGD - non-erosive gastritis s/p bx and cratered duodenal ulcer with clean base ist portion duodenum, and with hep c history possibly has cirrhosis, transfusion today given h and h result and recommendations from gi accounting consultant, PPI, hold ASA, eliquis Hypernatremia - Likely from poor PO intake, patient is on a honey thick diet. Hopefully he will have an improvement in his intake over the next 24 hours. Recent Acute CVA - Area of acute ischemia/infarction is seen involving portions of the right temporal, right occipital and right frontoparietal lobes as discussed above. This is a right MCA distribution. There is mild surrounding edema without evidence of significant mass effect. was on eliquis. Continue Lipitor 40 mg HS. Hx of PAFIB - needs anticoagulation, but with GI bleeding is on hold. Cardiology to see as well. Likely will need atrial appendage closure device HTN: labile. monitor on meds HLP - cont statin CECIL on CKD stage 4 - likely vasomotor Agitation/Aggressive Behavior - on antipsychotics Weak cough - start nebs today, may need glycopyrrolate Acute/subacute right frontal, parietal, temporal and occipital lobe infarcts. 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 Amphetamine positive. Cannabinoids positive. Obesity. Hep C history - will check viral load FEN - Clear liquid diet PPX - PPI FULL CODE CVC admission for GI bleed,most likely 2/2 UGIB. - PT/OT/ASSOCIATE BRAND MANAGER 37 min pt exam, chart review,> 50% of time spent with exam, chart review, pt care coordination History of Present Illness History of Present Illness Mr. Gutiérrez is a 68 year old M w/ PMHx HTN, HLD, Hep C, admitted for stroke symptoms to [facility] 07/18/18 and discharged to [facility] on 07/25/18. He last used meth prior to admit and smokes marijuana as well. He was seen by cardiology, started on heparin GTT, cardizem GTT for management for his afib, seen by neurology as well, MRI confirmed area of acute ischemia/infarction is seen involving portions of the right temporal, right occipital and right frontoparietal lobes. This is a right MCA distribution. There is mild surrounding edema without evidence of significant mass effect. He was continuing to have difficulty swallowing, GI was consulted for PEG consideration, was on PPN for nearly 1 week for nutrition. Worked with PT/OT/ASSOCIATE BRAND MANAGER daily, was initially confused and agitated, however this improved over the course of 7 days, not requiring haldol and ativan. Has been tolerating ice chips per his well. Up and alert this morning, he is frustrated with his stroke symptoms. Videoswallow showed penetration with honey-thickened liquids. Discussed with he and his bedside. His cough is still very weak. Given nebs with improvement. IS and acapella flutter valve both bedside. had been discharged to [facility] on Eliquis. cratered duodenal ulcer noted on recent EGD confused, agitated,may need LTAC waiting on insurance issues, Vitals Vitals Vital Signs Date Time Temp Pulse Resp B/P (MAP) Pulse Ox O2 Delivery O2 Flow Rate FiO2 08/04/18 12:54 Room Air 08/04/18 12:16 87 183/88 08/04/18 10:53 97.9 20 94 97.9 08/03/18 20:00 2.0 Physical Exam General: Alert, Cooperative, No acute distress Lungs: Clear, Other Abdomen: Normal bowel sounds, Soft, No tenderness, No hepatosplenomegaly, No masses Extremities: No clubbing, No cyanosis, No edema, Normal pulses, No tenderness/swelling Skin: No rashes, No breakdown, No significant lesion Labs LABS Laboratory Tests Test 08/04/18 08:45 White Blood Count 12.4 x10^3/uL (4.0-11.0) Red Blood Count 2.82 x10^6/uL (4.30-5.70) Hemoglobin 8.1 g/dL (13.0-17.5) Hematocrit 25.0 % (39.0-53.0) Mean Corpuscular Volume 89 fL (79-100) Mean Corpuscular Hemoglobin 29 pg (25-35) Mean Corpuscular Hemoglobin Concent 33 g/dL (31-37) Red Cell Distribution Width 15.4 % (11.5-14.5) Platelet Count 408 x10^3/uL (140-400) Sodium Level 143 mmol/L (136-145) Potassium Level 4.1 mmol/L (3.5-5.1) Chloride Level 106 mmol/L (98-107) Carbon Dioxide Level 26 mmol/L (21-32) Anion Gap 11 (6-14) Blood Urea Nitrogen 26 mg/dL (8-26) Creatinine 1.8 mg/dL (0.7-1.3) Estimated GFR (Cockcroft-Gault) 37.8 BUN/Creatinine Ratio 14 (6-20) Glucose Level 128 mg/dL (70-99) Calcium Level 8.5 mg/dL (8.5-10.1) Total Bilirubin 0.8 mg/dL (0.2-1.0) Aspartate Amino Transf (AST/SGOT) 90 U/L (15-37) Alanine Aminotransferase (ALT/SGPT) 206 U/L (16-63) Alkaline Phosphatase 216 U/L (46-116) Total Protein 6.0 g/dL (6.4-8.2) Albumin 2.0 g/dL (3.4-5.0) Albumin/Globulin Ratio 0.5 (1.0-1.7) Assessment and Plan Assessmemt and Plan Problems Medical Problems: (1) Acute on chronic renal failure Status: Acute (2) Anemia Status: Acute (3) Anticoagulant-induced bleeding Status: Acute (4) Hypoalbuminemia Status: Acute Comment Review of Relevant I have reviewed the following items dylan (where applicable) has been applied. Labs Laboratory Tests Test 08/03/18 04:15 08/04/18 08:45 Sodium Level 148 mmol/L (136-145) 143 mmol/L (136-145) Potassium Level 3.6 mmol/L (3.5-5.1) 4.1 mmol/L (3.5-5.1) Chloride Level 110 mmol/L (98-107) 106 mmol/L (98-107) Carbon Dioxide Level 28 mmol/L (21-32) 26 mmol/L (21-32) Anion Gap 10 (6-14) 11 (6-14) Blood Urea Nitrogen 31 mg/dL (8-26) 26 mg/dL (8-26) Creatinine 1.9 mg/dL (0.7-1.3) 1.8 mg/dL (0.7-1.3) Estimated GFR (Cockcroft-Gault) 35.5 37.8 Glucose Level 121 mg/dL (70-99) 128 mg/dL (70-99) Calcium Level 8.4 mg/dL (8.5-10.1) 8.5 mg/dL (8.5-10.1) Total Bilirubin 0.9 mg/dL (0.2-1.0) 0.8 mg/dL (0.2-1.0) Direct Bilirubin 0.6 mg/dL (0.0-0.2) Aspartate Amino Transf (AST/SGOT) 95 U/L (15-37) 90 U/L (15-37) Alanine Aminotransferase (ALT/SGPT) 222 U/L (16-63) 206 U/L (16-63) Alkaline Phosphatase 198 U/L (46-116) 216 U/L (46-116) Total Protein 5.9 g/dL (6.4-8.2) 6.0 g/dL (6.4-8.2) Albumin 2.0 g/dL (3.4-5.0) 2.0 g/dL (3.4-5.0) White Blood Count 12.4 x10^3/uL (4.0-11.0) Red Blood Count 2.82 x10^6/uL (4.30-5.70) Hemoglobin 8.1 g/dL (13.0-17.5) Hematocrit 25.0 % (39.0-53.0) Mean Corpuscular Volume 89 fL (79-100) Mean Corpuscular Hemoglobin 29 pg (25-35) Mean Corpuscular Hemoglobin Concent 33 g/dL (31-37) Red Cell Distribution Width 15.4 % (11.5-14.5) Platelet Count 408 x10^3/uL (140-400) BUN/Creatinine Ratio 14 (6-20) Albumin/Globulin Ratio 0.5 (1.0-1.7) Laboratory Tests Test 08/04/18 08:45 White Blood Count 12.4 x10^3/uL (4.0-11.0) Red Blood Count 2.82 x10^6/uL (4.30-5.70) Hemoglobin 8.1 g/dL (13.0-17.5) Hematocrit 25.0 % (39.0-53.0) Mean Corpuscular Volume 89 fL (79-100) Mean Corpuscular Hemoglobin 29 pg (25-35) Mean Corpuscular Hemoglobin Concent 33 g/dL (31-37) Red Cell Distribution Width 15.4 % (11.5-14.5) Platelet Count 408 x10^3/uL (140-400) Sodium Level 143 mmol/L (136-145) Potassium Level 4.1 mmol/L (3.5-5.1) Chloride Level 106 mmol/L (98-107) Carbon Dioxide Level 26 mmol/L (21-32) Anion Gap 11 (6-14) Blood Urea Nitrogen 26 mg/dL (8-26) Creatinine 1.8 mg/dL (0.7-1.3) Estimated GFR (Cockcroft-Gault) 37.8 BUN/Creatinine Ratio 14 (6-20) Glucose Level 128 mg/dL (70-99) Calcium Level 8.5 mg/dL (8.5-10.1) Total Bilirubin 0.8 mg/dL (0.2-1.0) Aspartate Amino Transf (AST/SGOT) 90 U/L (15-37) Alanine Aminotransferase (ALT/SGPT) 206 U/L (16-63) Alkaline Phosphatase 216 U/L (46-116) Total Protein 6.0 g/dL (6.4-8.2) Albumin 2.0 g/dL (3.4-5.0) Albumin/Globulin Ratio 0.5 (1.0-1.7) Medications Current Medications Pantoprazole Sodium (PROTONIX VIAL for IV PUSH) 40 mg 1X ONCE IVP Last administered on 07/27/18at 00:06; Start 07/26/18 at 23:30; Stop 07/26/18 at 23:32; Status DC Sodium Chloride 500 ml @ 500 mls/hr 1X ONCE IV Last administered on 07/26/18at 23:30; Start 07/26/18 at 23:30; Stop 07/27/18 at 00:29; Status DC Sodium Chloride 1,000 ml @ 125 mls/hr Q8H IV ; Start 07/27/18 at 01:00; Stop 07/28/18 at 00:59; Status DC Pantoprazole Sodium 80 mg/ Sodium Chloride 100 ml @ 10 mls/hr Q10H IV Last administered on 07/27/18at 12:13; Start 07/27/18 at 02:00; Stop 07/27/18 at 14:21; Status DC Sodium Chloride 1,000 ml @ 200 mls/hr 1X ONCE IV Last administered on 07/27/18 02:54; Start 07/27/18 at 02:00; Stop 07/27/18 at 06:59; Status DC Pantoprazole Sodium (Protonix) 40 mg BIDAC PO Last administered on 08/04/18 08:20; Start 07/27/18 at 16:30 Atorvastatin Calcium (Lipitor) 40 mg QHS PO Last administered on 08/03/18 20:26; Start 07/27/18 at 21:00 Albuterol/ Ipratropium (Duoneb) 3 ml RTQID NEB Last administered on 08/04/18 12:53; Start 07/27/18 at 20:00 Nitroglycerin (Nitro-Bid Oint) 0.5 inch Q6HRS TD Last administered on 08/04/18 12:16; Start 07/27/18 at 18:00 Diltiazem HCl (Cardizem 24hr Cd) 240 mg DAILY PO Last administered on 08/01/18 08:36; Start 07/28/18 at 09:00; Stop 08/01/18 at 15:56; Status DC Fentanyl Citrate (Fentanyl 2ml Vial) 25 mcg PRN Q3HRS PRN IV PAIN Last administered on 08/01/18 21:21; Start 07/27/18 at 17:15 Haloperidol Lactate (Haldol Inj) 2 mg PRN Q4HRS PRN IM AGITATION Last administered on 07/29/18 10:12; Start 07/27/18 at 17:15 Hydralazine HCl (Apresoline Inj) 10 mg PRN Q4HRS PRN IVP give for SBP > 160 Last administered on 08/01/18 00:37; Start 07/27/18 at 17:15 Lorazepam (Ativan Inj) 1 mg PRN Q4HRS PRN IV ANXIETY / AGITATION Last admi nistered on 08/02/18 04:34; Start 07/27/18 at 17:15 Midazolam HCl (Versed) 5 mg STK-MED ONCE .ROUTE ; Start 07/28/18 at 11:23; Stop 07/28/18 at 11:24; Status DC Fentanyl Citrate (Fentanyl 2ml Vial) 100 mcg STK-MED ONCE .ROUTE ; Start 07/28/18 at 11:23; Stop 07/28/18 at 11:24; Status DC Ringer's Solution 1,000 ml @ 75 mls/hr [id number] IV Last administered on 07/31/18 06:00; Start 07/28/18 at 11:30; Stop 07/31/18 at 17:30; Status DC Midazolam HCl (Versed) 5 mg STK-MED ONCE IV Last administered on 07/28/18at 11:35; Start 07/28/18 at 11:35; Stop 07/28/18 at 11:45; Status DC Fentanyl Citrate (Fentanyl 2ml Vial) 100 mcg STK-MED ONCE IV Last administered on 07/28/18 11:35; Start 07/28/18 at 11:35; Stop 07/28/18 at 11:45; Status DC Acetaminophen (Tylenol) 650 mg 1X PRN PRN PO PRE-TRANSFUSION Last administered on 07/30/18 10:36; Start 07/30/18 at 07:15; Stop 07/30/18 at 10:36; Status DC Diphenhydramine HCl (Benadryl Oral Elixir) 12.5 mg 1X PRN PRN PO PRE- TRANSFUSION Last administered on 07/30/18 10:35; Start 07/30/18 at 07:15; Stop 07/30/18 at 10:36; Status DC Polyethylene Glycol (miraLAX PACKET) 17 gm DAILY PO Last administered on 08:21; Start 07/31/18 at 13:30; Stop 08/04/18 at 09:41; Status DC Diltiazem HCl (Cardizem 24hr Cd) 300 mg DAILY PO Last administered on 08/04/18 08:21; Start 08/02/18 at 09:00 Lidocaine (Lidoderm) 1 patch DAILY TD Last administered on 08/04/18 08:22; Start 08/02/18 at 09:00 Miscellaneous (Lidoderm Patch Removal) 1 ea QHS MC Last administered on 08/03/18 21:00; Start 08/02/18 at 21:00 Diclofenac Sodium (Voltaren) 1 camilla BID TP Last administered on 08/04/18 08:21; Start 08/02/18 at 09:00 Bisacodyl (Dulcolax Tab) 10 mg 1X ONCE PO Last administered on 08/02/18at 09:14; Start 08/02/18 at 09:30; Stop 08/02/18 at 09:31; Status DC Acetaminophen (Tylenol) 325 mg 1X ONCE PO Last administered on 08/03/18at 20:27; Start 08/03/18 at 19:30; Stop 08/03/18 at 19:31; Status DC Polyethylene Glycol (miraLAX PACKET) 17 gm BID PO ; Start 08/04/18 at 10:00 Bisacodyl (Dulcolax Tab) 5 mg PRN DAILY PRN PO CONSTIPATION Last administered on 08/04/18at 12:16; Start 08/04/18 at 09:45 Active Scripts Active Polyethylene Glycol 3350 17 Gm Powd.pack 17 Gm PO BID Diltiazem 24Hr ER (Cd) (Diltiazem HCl) 300 Mg Cap.er.24h 300 Mg PO DAILY Lidocaine 1 Each Adh..patch 1 Patch TD DAILY [Pantoprazole] 40 MG Tablet.dr 40 Mg PO BIDAC Reported [Lorazepam] 1 Mg IV Q4HRS PRN [Fentanyl] 0.25 Mcg IV Q3HRS PRN [Haldol] 2 Mg IM Q4HRS PRN [Hydralazine] 10 Mg IV Q4HRS PRN Aspirin 325 Mg Tablet 1 Tab PO DAILY [clinimix e/dextrose] 50 Ml IV Nitro-Bid (Nitroglycerin) 1 Gm Oint...g. 0.5 Inch TD Q6HRS Duoneb 0.5-3(2.5) Mg/3 Ml (Albuterol/Ipratropium) 3 Ml Ampul.neb 3 Ml NEB QID Atorvastatin Calcium 40 Mg Tablet 1 Tab PO QHS Vitals/I & O Vital Sign - Last 24 Hours 08/03/18 08/03/18 08/03/18 08/03/18 15:00 15:50 17:27 19:00 Temp 97.7 97.9 97.7 97.9 Pulse 95 106 102 Resp 18 20 B/P (MAP) 120/94 (103) 120/94 118/85 (96) Pulse Ox 94 97 95 O2 Delivery Nasal Cannula Room Air Room Air O2 Flow Rate 2.0 6/08/1608/03/18 08/03/18 08/04/18 20:00 20:26 23:01 02:45 Temp 98.2 98.0 98.2 98.0 Pulse 92 90 Resp 18 20 B/P (MAP) 138/93 (108) 135/89 (104) Pulse Ox 94 92 O2 Delivery Nasal Cannula Room Air Room Air Room Air O2 Flow Rate 2.0 08/04/18 08/04/18 08/04/18 08/04/18 05:23 05:23 07:24 08:21 Temp 97.5 97.5 Pulse 90 64 100 100 Resp 20 B/P (MAP) 135/89 133/80 (97) 133/80 Pulse Ox 96 O2 Delivery Room Air 08/04/18 08/04/18 08/04/18 08/04/18 08:30 09:49 10:53 12:16 Temp 97.9 97.9 Pulse 87 87 Resp 20 B/P (MAP) 183/88 (119) 183/88 Pulse Ox 98 94 O2 Delivery Room Air Room Air Room Air 08/04/18 12:54 O2 Delivery Room Air Intake and Output 08/03/18 08/03/18 08/04/18 15:00 23:00 07:00 Intake Total 840 ml 740 ml Output Total 300 ml Balance 840 ml 740 ml -300 ml Nutrition Consultation Dietary Evaluation: Recommendations by RD: Increase Calorie Intake, Decrease Calorie Intake Comments: REC continue w/Dyspahgia III diet w/Honey thick liquids as ordered today - will not add additional dietary restrictions to promote PO intake Ensure pudding BID on trays Ensure prn, between meals and/or per pt request, thickened on unit Expected Outcomes/Goals: PO intake to meet >75% est needs - met at times, goal ongoing Interpretation of weight loss: >1-2% in 1 week Malnutrition Findings: Food and Nutrition Intake (Sev: <50% est energy req 5days Body Fat Depletion (Non Severe: Mild Depletion Weight Status: Obese SHANTA ARREAGA MD Aug 04, 2018 13:03
[2018-08-04] MEDS ORDERED: BARIUM SULFATE 40% (APPLE) 148 GM PWD. PO ONE (13:15)
--- NOTE | 2018-08-04 14:37 | NUR ---
SS following up with discharge planning. Bed available at [facility]. SS phoned and faxed discharge orders to [facility], ; fax [phone]. Pt will discharge today and go to [facility] at 1700 via [facility] ambulance. Pt, pt's RN, and pt's family notified.
--- NOTE | 2018-08-04 15:05 | RAD ---
EXAM: Modified barium swallow. HISTORY: Cerebrovascular accident, dysphagia. FINDINGS: Barium contrast material was administered orally and multiple consistencies under the direction of speech pathology, and followed in its course during swallowing with video fluoroscopy. A fluoroscopic image and multiple videofluoroscopic clips were obtained. Fluoroscopy time 2.0 minutes. There was premature spillage with thin consistencies. There was trace laryngeal penetration with multiple swallows of thin liquids on one occasion. There was no aspiration. IMPRESSION: 1. No aspiration. Refer to the full report by speech pathology for more detail. Electronically signed by: Radha Christianson MD (08/04/2018 3:02 PM) [facility]
== END 2018-08-04 18:43 | DRG 377 ==
LOC: ER 23:03 → 2 NORTH 07-27 00:07 → 1 WEST ICU 07-27 02:19 → 2 SOUTH 07-27 14:10
PROVIDERS: ADMIT Internal Medicine; ATTEND Internal Medicine
PROC: 0DB68ZX Excision of Stomach, Via Natural or Artificial Opening Endoscopic, Diagnostic (ICD-10-PCS; principal; 2018-07-28 11:30)
PROC: 30233N1 Transfusion of Nonautologous Red Blood Cells into Peripheral Vein, Percutaneous Approach (ICD-10-PCS; 2018-07-30)
PROC: 5A09357 Assistance with Respiratory Ventilation, Less than 24 Consecutive Hours, Continuous Positive Airway Pressure (ICD-10-PCS; 2018-08-02)
DX: K26.4 Chronic or unspecified duodenal ulcer with hemorrhage (principal); N17.0 Acute kidney failure with tubular necrosis; D68.32 Hemorrhagic disorder due to extrinsic circulating anticoagulants; D62 Acute posthemorrhagic anemia; I69.354 Hemiplegia and hemiparesis following cerebral infarction affecting left non-dominant side; E87.0 Hyperosmolality and hypernatremia; I47.2 Ventricular tachycardia; N18.4 Chronic kidney disease, stage 4 (severe); K29.01 Acute gastritis with bleeding; K57.31 Diverticulosis of large intestine without perforation or abscess with bleeding; J44.9 Chronic obstructive pulmonary disease, unspecified; E78.5 Hyperlipidemia, unspecified; I12.9 Hypertensive chronic kidney disease with stage 1 through stage 4 chronic kidney disease, or unspecified chronic kidney disease; M19.90 Unspecified osteoarthritis, unspecified site; I48.91 Unspecified atrial fibrillation; E66.9 Obesity, unspecified; K21.9 Gastro-esophageal reflux disease without esophagitis; E86.0 Dehydration; I25.10 Atherosclerotic heart disease of native coronary artery without angina pectoris; F41.9 Anxiety disorder, unspecified; K74.60 Unspecified cirrhosis of liver; T45.515A Adverse effect of anticoagulants, initial encounter; D72.829 Elevated white blood cell count, unspecified; M76.61 Achilles tendinitis, right leg; Z90.49 Acquired absence of other specified parts of digestive tract; Z79.899 Other long term (current) drug therapy; Z82.49 Family history of ischemic heart disease and other diseases of the circulatory system; Z68.32 Body mass index [BMI] 32.0-32.9, adult; Z87.11 Personal history of peptic ulcer disease; Z88.0 Allergy status to penicillin; Y92.89 Other specified places as the place of occurrence of the external cause
CPT/HCPCS: 36415; 43239; 71045; 74176; 74230; 76705; 80048; 80053; 80076; 83605; 83690; 83735; 83880; 84484; 85007; 85025; 85027; 85610; 85730; 86705; 86709; 86803; 86850; 86900; 86901; 86920; 87340; 87521; 87641; 88305; 88342; 94640; 94760; 96374; C9113; J0360; J1630; J2060; J2250; J3010; J7030; J7040; J7120; J7620; P9016; 92610; 92611; 97110; 97112; 97530; 97535; 99285-25

== ENCOUNTER 2018-08-10 03:59 | Emergency (ER) | payer BC, MEDICARE ==
[~2018-08-10] VITALS: Ht 185.4 cm; Wt 108.9 kg
[~2018-08-10 03:59] MED LIST changes: +ASPI325T8 PO; +ATOR40TA59 PO; +CLINIMIX E IV; +DEXTROSE IV; +DILT120C85 PO; +DILT300C24 PO; +FENTANYL IV; +HALDOL IM; +HYDRALAZINE IV; +IPRA3AMP29 NEB; +LIDO700A21 TD; +LORAZEPAM IV; +NITR1OIN TD; +POLY17PO28 PO; +Pantoprazole PO
[2018-08-10 04:08] VITALS: BP 105/52
[2018-08-10] MEDS ORDERED: ATROPINE 0.5 MG/5 ML DISP.SYRINGE. IV ONE (04:10)
[2018-08-10] MEDS ORDERED: fentaNYL PF VIAL 100 MCG/2 ML VIAL IV ONE (04:30)
--- NOTE | 2018-08-10 05:45 | PHYS DOC ---
Past Medical History Past Medical History: No Pertinent History Past Surgical History: No Surgical History Additional Past Surgical Histo: Carpal tunnel R side, hemorroidectomy Alcohol Use: None Drug Use: None Adult General Chief Complaint Chief Complaint: GI PROBLEM HPI HPI Patient is a 68 year old see mdm Review of Systems Review of Systems ramírez by mental status Current Medications Current Medications Current Medications Medications (Trade) Dose Ordered Sig/Von Start Time Stop Time Status Last Admin Dose Admin Atropine Sulfate (ATROPINE 0.5mg SYRINGE) 0.5 mg 1X ONCE 08/10/18 04:10 08/10/18 04:11 UNV 08/10/18 04:12 0.5 MG Fentanyl Citrate (Fentanyl 2ml Vial) 50 mcg 1X ONCE 08/10/18 04:30 08/10/18 04:31 DC 08/10/18 04:25 50 MCG Allergies Allergies Allergies Coded Allergies Type Severity Reaction Last Updated Verified Tetracyclines Allergy Intermediate 07/28/18 Yes hydromorphone Allergy Intermediate 07/28/18 Yes Physical Exam Physical Exam Constitutional: ill appearing. HENT: Normocephalic, atraumatic, bilateral external ears normal, oropharynx moist, no oral exudates, nose normal. [] Eyes:left gaze deviation Neck: Normal range of motion, no tenderness, supple, no stridor. [] Cardiovascular hard to assess murmur due to resp sounds Lungs & Thorax:tachypnea coarse breath sounds noisy breathing Abdomen: soft, hard to assess tenderness, no masses, no pulsatile masses. [] Skin: cool pale diaphoretic Extremities: No tenderness, no cyanosis, no clubbing, ROM intact,diffuse edema Neurologic:altered, intermittently follows commands hemiparesis baseline noted. less alert than normal. gcs e 3 v 2 m 6 Current Patient Data Vital Signs Vital Signs Date Time Temp Pulse Resp B/P (MAP) Pulse Ox O2 Delivery O2 Flow Rate FiO2 08/10/18 04:08 97.8 66 18 105/52 (69) 100 Room Air 4.0 97.8 EKG EKG [] Radiology/Procedures Radiology/Procedures [] Course & Med Decision Making Course & Med Decision Making Pertinent Labs and Imaging studies reviewed. (See chart for details) [] This is a 68-year-old, located male who [facility] dropping hemoglobin GI bleeding altered mental status increased respiratory rate. Overall history is limited by the patient's acuity however it sounds like he's had some melena the last couple of days he did get a blood transfusion last week he did have a recent stroke he also had DVT of his lower extremities he was started on Lovenox subcutaneous injections not started on oral anticoagulation yet due to history of GI bleeding Apparently was complaining of some abdominal pain was having increasing dark stool tonight dropping hemoglobin and increased respiratory rates were came to the emergency room for evaluation. Apparently the [facility] doctor had spoken with Dr. clakre who accepted the patient to the emergency room for evaluation. On my initial elevation in the emergency room the patient was cool clammy diaphoretic tachypnea altered and looked extremely critically ill. We moved him to the trauma room right away we're working on IV access he was very tachypnea He was clamped down throughout. I was very concerned about his hemodynamics. I spoke with the who was in the emergency room within the first 15 minutes of him arriving we spoke she confirmed he is a DNI and after some discussion we ultimately concluded that he is a DNR/DNI she said that "he has suffered too much I don't want him to suffer anymore". During the midst of this conversation essentially the patient had some bradycardia heart rate went down into the 30s 0410 am approximately I did give him 1 dose of atropine and his heart rate did come up into the low 100s for short period of time but then we could not palpate a blood pressure shortly aft er that we did bring the into the room to be with the patient we did give a dose of fentanyl for comfort. Time of 4:37 AM Critical care time was 35 minutes exclusive of procedures. Dragon Disclaimer Dragon Disclaimer This electronic medical record was generated, in whole or in part, using a voice recognition dictation system. Departure Departure Impression: Primary Impression: Cardiac arrest Disposition: 20 Condition: Referrals: MAKENZIE ALEXANDER (PCP) OKSANA LIU MD Aug 10, 2018 05:45
== END 2018-08-10 04:37 | disposition expired ==
LOC: ER 03:59
DX: I46.9 Cardiac arrest, cause unspecified (principal); R06.82 Tachypnea, not elsewhere classified; R61 Generalized hyperhidrosis; G81.90 Hemiplegia, unspecified affecting unspecified side; Z88.1 Allergy status to other antibiotic agents; Z88.5 Allergy status to narcotic agent
CPT/HCPCS: 82962; 96374; 96375; 99291; J0461; J3010